=== PATIENT | male | born 1985 | race Caucasian/White ===

== ENCOUNTER → 2016-11-01 | Outpatient (REF) | payer MEDICARE, MEDICAID ==
[~2016-11-01] MED LIST: AMOX500C PO; AMPI50CA PO; CIPR500T89 PO; CRANPOW2 PO; FLOM5CAP PO; FOSFOMYCIN PO; LYRI100C10 PO; MACR100C3 PO; OXYB10TA PO; OXYB5TA PO; OXYC10TA12 PO; OXYC15TA76 PO; OXYC1TAB23 PO; PERC5TAB6 PO; PERC7.5T3 PO; TYLE500T78 PO; [UNRECOGNIZED DRUG - CODE] IV
[2016-11-01 19:37] LABS: INR 0.93
[2016-11-01 19:50] LABS: BASO % 0.3 % (0.0-1.0); EOS # 0.2 K/mm3 (0.0-0.50); EOS % 2.1 % (0.0-3.0); LARGE UNSTAINED CELL # 0.1 K/mm3 (0.0-0.4); LYMPH % 11.5 % (24.0-44.0); MEAN CORPUSCULAR HEMOGLOBIN 27.8 pg (27.0-33.0); MEAN CORPUSCULAR VOLUME 86.7 fl (80.0-96.0); MONO # 0.3 K/mm3 (0.0-0.8); MONO % 3.6 % (0.0-5.0); NEUTROPHILS # 7.2 K/mm3 (1.8-7.7); NEUTROPHILS % 81.5 % (36.0-66.0); PLATELET COUNT, AUTOMATED 273 k/mm3 (150-450); RED CELL DISTRIBUTION WIDTH 15.3 % (11.5-14.5); WHITE BLOOD COUNT 8.9 K/mm3 (4.0-10.0)
[2016-11-01 20:01] LABS: ALBUMIN 4.1 GM/DL (3.2-5.2); ALBUMIN/GLOBULIN RATIO 1.28 (1.00-1.93); ALKALINE PHOSPHATASE 78 U/L (45-117); ALT/SGPT 26 U/L (12-78); ANION GAP 9 MEQ/L (8-16); AST/SGOT 10 U/L (15-37); BILIRUBIN,TOTAL 0.3 MG/DL (0.2-1.0); BLOOD UREA NITROGEN 13 MG/DL (7-18); CALCIUM LEVEL 9.3 MG/DL (8.5-10.1); CARBON DIOXIDE LEVEL 30 MEQ/L (21-32); CHLORIDE LEVEL 102 MEQ/L (98-107); GLOMERULAR FILTRATION RATE > 60.0 (>60); GLUCOSE, FASTING 87 MG/DL (70-105); SODIUM LEVEL 141 MEQ/L (136-145); TOTAL PROTEIN 7.3 GM/DL (6.4-8.2)
== END ==
LOC: M LAB REF 18:52
PROVIDERS: ATTEND Urology
DX: Z01.812 Encounter for preprocedural laboratory examination (principal); R82.99 Other abnormal findings in urine; N28.9 Disorder of kidney and ureter, unspecified

== ENCOUNTER 2016-11-04 11:51 | Emergency (ER) | payer MEDICARE, MEDICAID ==
[~2016-11-04] VITALS: Ht 154.9 cm; Wt 59.0 kg
[~2016-11-04 11:51] MED LIST changes: -AMOX500C PO; -AMPI50CA PO; -FLOM5CAP PO; -FOSFOMYCIN PO; -OXYB5TA PO; -OXYC10TA12 PO; -OXYC15TA76 PO; -[UNRECOGNIZED DRUG - CODE] IV
[2016-11-04] MEDS ORDERED: OXYB5TA PO (12:12)
[2016-11-04] MEDS ORDERED: OXYC15TA76 PO (12:12)
[2016-11-04] MEDS ORDERED: NS 1,000 ML IV ONE (12:30)
[2016-11-04] MEDS ORDERED: KETOROLAC 30 MG/ML VIAL (J1885) IV ONE (12:30)
[2016-11-04] MEDS ORDERED: TAMSULOSIN 0.4 MG CAP PO ONE (12:30)
[2016-11-04] MEDS ORDERED: ONDANSETRON 4MG/2ML VIAL (J2405) IV ONE (12:30)
[2016-11-04] MEDS ORDERED: MORPHINE 2 MG/ML 1ML SYRINGE IV ONE (12:30)
[2016-11-04 13:03] LABS: BASO % 0.5 % (0.0-1.0); EOS # 0.1 K/mm3 (0.0-0.50); EOS % 1.9 % (0.0-3.0); LARGE UNSTAINED CELL # 0.1 K/mm3 (0.0-0.4); LARGE UNSTAINED CELL % 1.6 % (0.0-4.0); LYMPH # 0.9 K/mm3 (1.5-6.5); LYMPH % 13.4 % (24.0-44.0); MEAN CORPUSCULAR HEMOGLOBIN 27.5 pg (27.0-33.0); MEAN CORPUSCULAR HGB CONC 32.2 g/dl (32.0-36.5); MEAN CORPUSCULAR VOLUME 85.4 fl (80.0-96.0); MONO # 0.3 K/mm3 (0.0-0.8); MONO % 4.7 % (0.0-5.0); NEUTROPHILS # 5.1 K/mm3 (1.8-7.7); PLATELET COUNT, AUTOMATED 257 k/mm3 (150-450); RED CELL DISTRIBUTION WIDTH 15.3 % (11.5-14.5); WHITE BLOOD COUNT 6.6 K/mm3 (4.0-10.0)
[2016-11-04] MEDS ORDERED: CIPROFLOXACIN 400 MG in APPROPRIATE DILUENT 1 EA IV ONE (13:15)
[2016-11-04] MEDS ORDERED: cefTRIAXone SOD 1 GM in D5W MINI-BAG PLUS 50 ML IV ONE (13:15)
[2016-11-04 13:21] LABS: ALBUMIN 4.4 GM/DL (3.2-5.2); ALBUMIN/GLOBULIN RATIO 1.22 (1.00-1.93); ALKALINE PHOSPHATASE 72 U/L (45-117); ALT/SGPT 23 U/L (12-78); ANION GAP 7 MEQ/L (8-16); AST/SGOT 10 U/L (15-37); BILIRUBIN,DIRECT < 0.1 MG/DL (0.0-0.2); BILIRUBIN,TOTAL 0.3 MG/DL (0.2-1.0); BLOOD UREA NITROGEN 12 MG/DL (7-18); CALCIUM LEVEL 9.7 MG/DL (8.5-10.1); CARBON DIOXIDE LEVEL 29 MEQ/L (21-32); CHLORIDE LEVEL 104 MEQ/L (98-107); CREATININE FOR GFR 0.57 MG/DL (0.70-1.30); GLOMERULAR FILTRATION RATE > 60.0 (>60); GLUCOSE, FASTING 84 MG/DL (70-105); POTASSIUM SERUM 3.6 MEQ/L (3.5-5.1); SODIUM LEVEL 140 MEQ/L (136-145)
[2016-11-04] MEDS ORDERED: MORPHINE 4 MG/ML 1ML SYRINGE IV PRN (13:45)
--- NOTE | 2016-11-04 14:06 | REP ---
URINARY TRACT SONOGRAPHY: HISTORY: Left flank pain, history of stones. Comparison CT study March 31, 2016. SONOGRAPHIC FINDINGS: Scanning at the level of the urinary bladder shows no significant finding. There is severe hydronephrosis and hydroureter on the left side. The left kidney measures 10.1 x 3.9 x 5.4 cm. It is somewhat atrophic. No hydronephrosis is seen on the right. Right kidney measures 10.7 x 5.4 x 7.3 cm. There is a calcification at the lower pole cortex of the right kidney. The right kidney is lobulated in contour. A 1.7 cm calcification consistent with an intrarenal stone is seen in the lower pole right kidney as well. These findings correspond with the recent CT on the right side. The severe hydronephrosis on the left is new from the comparison CT study. No intrarenal stone is seen on the left. IMPRESSION: Interval development of severe hydronephrosis and hydroureter in the atrophic left kidney. Intrarenal nephrolithiasis right kidney with a large 1.7 cm stone in the lower pole. Right renal scarring and parenchymal calcification noted. Signed by Armando Moore MD 11/04/2016 04:47 P
--- NOTE | 2016-11-04 15:18 | REP ---
CT of the abdomen pelvis without IV or bowel contrast for left flank pain: Comparisons are 03/25/2015 and 03/31/2016. There is marked left renal cortical atrophy, chronic and unchanged. There is mild right renal cortical atrophy, chronic and unchanged. There are no left renal ureteral calculi. There are multiple nonobstructive right renal calculi, unchanged. There is no right ureteral calculus. There is no hydronephrosis on the right or left. There are no bladder calculi. The bladder is incompletely distended. The bladder wall is thickened, vertically posteriorly. This is nonspecific and could be artifact from under distension or could represent inflammation or bladder wall mass. The visualized lung fang are unremarkable. The unenhanced hepatic parenchyma, gallbladder, pancreas, spleen, adrenals, abdominal aorta, bowel and mesentery are unremarkable. Pelvis: Chronic right hip. This is placed is again with chronic sessile and dislocation of the right femoral head, unchanged. The left hip is unremarkable. There is no ascites or adenopathy. The pelvic bowel loops are unremarkable. The distal end of a VOLLEYBALL COMMENTATOR shunt is again noted. Impression: No hydronephrosis on the right or the left. No left renal ureteral calculi. Marked chronic renal cortical atrophy of the left kidney. There are multiple nonobstructive right renal calculi, unchanged. No right hydronephrosis or hydroureter. Wall thickening of the bladder, likely secondary to incomplete obstruction although inflammation or neoplasm is not entirely discounted. Chronic right hip dysplasia versus cephalic migration of the right femoral head. VOLLEYBALL COMMENTATOR shunt is again noted. The appendix is unremarkable. Signed by Lanre Larson MD 11/04/2016 03:09 P
[2016-11-04] MEDS ORDERED: PERCOCET 5MG/325MG TAB PO ONE (15:30)
[2016-11-04] MEDS ORDERED: PERC5TAB6 PO (15:44)
[2016-11-04] MEDS ORDERED: FOSFOMYCIN PO (15:44)
[2016-11-04] MEDS ORDERED: FOSFOMYCIN TROMETHAMINE 3 GM POWDER PACKET (MONUROL) PO ONE (15:45)
[2016-11-04] MEDS ORDERED: AMPI50CA PO (15:56)
[2016-11-04 16:10] VITALS: BP 142/72
== END 2016-11-04 16:12 | disposition home or self-care (01) ==
LOC: M ED 12:35
DX: N39.0 Urinary tract infection, site not specified (principal); B96.5 Pseudomonas (aeruginosa) (mallei) (pseudomallei) as the cause of diseases classified elsewhere; B95.2 Enterococcus as the cause of diseases classified elsewhere; Q05.9 Spina bifida, unspecified; M54.5 Low back pain; F41.9 Anxiety disorder, unspecified; Z87.442 Personal history of urinary calculi; F17.210 Nicotine dependence, cigarettes, uncomplicated
CPT/HCPCS: 74176; 76775; 80048; 80076; 81001; 85025; 96365; 96367; 96375; 96376; 99283; J0696; J0744; J1885; J2405

== ENCOUNTER 2016-12-02 13:07 | Inpatient (IN) | payer MEDICARE, MEDICAID ==
[~2016-12-02] VITALS: Ht 154.9 cm; Wt 61.0 kg
[~2016-12-02 13:07] MED LIST changes: +AMPI50CA PO; +FOSFOMYCIN PO; +OXYB5TA PO; +OXYC15TA76 PO
[2016-12-02] MEDS ORDERED: ACETAMINOPHEN 325 MG TAB PO ONE (14:30)
[2016-12-02] MEDS ORDERED: NS 1,000 ML IV ONE ×2 (14:30)
[2016-12-02] MEDS ORDERED: MORPHINE 4 MG/ML 1ML SYRINGE IV ONE (14:30)
[2016-12-02] MEDS ORDERED: KETOROLAC 30 MG/ML VIAL (J1885) IV ONE (14:30)
[2016-12-02 15:10] LABS: BASO % 0.1 % (0.0-1.0); EOS # 0.3 K/mm3 (0.0-0.50); LARGE UNSTAINED CELL # 0.3 K/mm3 (0.0-0.4); LYMPH # 0.3 K/mm3 (1.5-6.5); LYMPH % 1.1 % (24.0-44.0); MEAN CORPUSCULAR HGB CONC 34.8 g/dl (32.0-36.5); MEAN CORPUSCULAR VOLUME 83.6 fl (80.0-96.0); MONO # 1.5 K/mm3 (0.0-0.8); MONO % 5.5 % (0.0-5.0); NEUTROPHILS # 24.4 K/mm3 (1.8-7.7); NEUTROPHILS % 91.2 % (36.0-66.0); PLATELET COUNT, AUTOMATED 245 k/mm3 (150-450); RED CELL DISTRIBUTION WIDTH 14.9 % (11.5-14.5); WHITE BLOOD COUNT 26.8 K/mm3 (4.0-10.0)
[2016-12-02] MEDS ORDERED: ONDANSETRON 4MG/2ML VIAL (J2405) IV ONE (15:30)
[2016-12-02 15:35] LABS: ALBUMIN 3.1 GM/DL (3.2-5.2); ALBUMIN/GLOBULIN RATIO 0.86 (1.00-1.93); ALKALINE PHOSPHATASE 68 U/L (45-117); ALT/SGPT 26 U/L (12-78); ANION GAP 10 MEQ/L (8-16); AST/SGOT 22 U/L (15-37); BILIRUBIN,DIRECT 0.2 MG/DL (0.0-0.2); BILIRUBIN,TOTAL 0.6 MG/DL (0.2-1.0); BLOOD UREA NITROGEN 11 MG/DL (7-18); CALCIUM LEVEL 9.1 MG/DL (8.5-10.1); CARBON DIOXIDE LEVEL 27 MEQ/L (21-32); CHLORIDE LEVEL 92 MEQ/L (98-107); CREATININE FOR GFR 0.77 MG/DL (0.70-1.30); GLOMERULAR FILTRATION RATE > 60.0 (>60); GLUCOSE, FASTING 132 MG/DL (70-105); POTASSIUM SERUM 3.2 MEQ/L (3.5-5.1); SODIUM LEVEL 129 MEQ/L (136-145); TOTAL PROTEIN 6.7 GM/DL (6.4-8.2)
[2016-12-02] MEDS ORDERED: HYDROmorphone HCL 1 MG/ML SYRINGE (J1170) IV ONE (15:45)
--- NOTE | 2016-12-02 15:47 | REP ---
RENAL ULTRASOUND COMPLETE: 12/02/2016. Clinical history: Right flank pain. History of stone retrieval and stent placement on the right, November 15. Comparison: Ultrasound 11/04/2016. Findings: The right kidney is a enlarged at 14 x 8.9 x 8.4 cm. The previous study was 10.7 x 5.4 x 7.4 cm and did not have hydronephrosis or stent. There is a stent seen on that right side from the proximal ureter to the distal ureter. Ureter is seen dilated throughout its course. Left kidney is also enlarged 13.1 x 4.7 x 5.5 cm, it has normal cortical echogenicity and thickness. There is severe hydronephrosis and hydroureter on the left is noted as well. Hydronephrosis now bilateral involves proximal mid and distal portions of both ureters. The exam was somewhat limited due to pain tolerance. The bladder appeared distended. I do not see ureteral jet phenomenon. Impression: 1. Bilateral hydronephrosis, the right kidney now severe hydronephrosis, enlarged to 14 cm from its previous length of 10.7 cm on the 11/04/2016 exam, stent seen from the proximal to the distal ureter on the right. 2. Severe hydronephrosis on the left again noted with stent seen on that left side as well with the left kidney now 13.1 cm, previously 10.1 cm on 11/04/2016. 3. Bladder somewhat distended without ureteral jets. Stents are seen bilaterally. No other findings. Signed by Jason Eason MD 12/02/2016 05:04 P
[2016-12-02] MEDS ORDERED: CIPROFLOXACIN 400 MG in APPROPRIATE DILUENT 1 EA IV ONE (16:15)
[2016-12-02] MEDS ORDERED: cefTRIAXone SOD 1 GM in D5W MINI-BAG PLUS 50 ML IV ONE (16:15)
[2016-12-02] MEDS ORDERED: OXYC10TA12 PO (16:58)
--- NOTE | 2016-12-02 17:15 | ED PDOC ---
Post-Departure Follow-Up SPOKE WITH DR. DONAHUE (HOSPITALIST) AND WITH DR. PEREZ (UROLOGY). DR. DONAHUE AGREED TO ADMIT AND DR. PEREZ AGREED TO CONSULT ON THIS PT. DR. PEREZ ADVISED STENTS WORKING WELL IF THE BLADDER WAS DISTENDED ON THE CT SCAN. STATES PT LIKELY HAS UTI AND DOES NOT CATH ENOUGH AND THE HYDRONEPHROSIS IS CAUSED BY REFLUX TO THE KIDNEY FROM A FULL BLADDER. RALPH STAFFORD PA-C December 02, 2016 17:15
[2016-12-02] MEDS ORDERED: PERCOCET 5MG/325MG TAB PO PRN (17:30)
[2016-12-02] MEDS: MORPHINE 10 MG/ML 1ML VIAL IV PRN ×2 (18:07→22:08)
[2016-12-02] MEDS ORDERED: POTASSIUM CHLORIDE 10 MEQ SR TABLET PO ONE (18:30)
[2016-12-02] MEDS ORDERED: NS 1,000 ML IV SCH (18:30)
[2016-12-02 20:25] VITALS: BP 102/60
[2016-12-02] MEDS ORDERED: PANTOPRAZOLE 40MG INJ (PROTONIX) (C9113) IV SCH (21:00)
[2016-12-02] MEDS: PENICILLIN G POTASSIUM IV 5 MU in D5W MINI-BAG PLUS 100 ML IV SCH (21:17)
[2016-12-02] MEDS: KCL 40MEQ in NS 1000ML 1,000 ML IV SCH (21:17)
[2016-12-02] MEDS: PERCOCET 5MG/325MG TAB PO PRN (21:17)
[2016-12-02 22:00] VITALS: BP 108/60
--- NOTE | 2016-12-02 22:04 | REP ---
Clinical: Hydronephrosis with stents. Comparison: 11/04/2016. Findings: The right kidney appears edematously enlarged with mild perinephric and periureteral stranding and stent in satisfactory position from the renal pelvis to the bladder. Chronic areas of cortical scarring and acute/chronic elements of hydronephrosis are suggested along with few intrarenal calculi measuring up to approximately 5 mm. In comparison to prior examination, the previously noted large right intrarenal calculi measuring greater than 18 mm appear to have been removed. Following the right ureteral stent into the bladder there is no evidence for ureteral calcification. The left kidney demonstrates stable chronic cortical scarring and chronic elements of hydroureteronephrosis without obstructing calculus. Hepatomegaly appreciated. Spleen, pancreas, gallbladder, and bilateral adrenal glands are normal for noncontrast evaluation. The enteric system demonstrates scattered diverticula without evidence for obstruction or acute inflammatory process. Normal terminal ileum and appendix identified in the right lower quadrant. Small amount of pelvic fluid is appreciated along with a ventriculoperitoneal shunt in satisfactory position. No free air. Scattered predominately retroperitoneal lymph nodes in the periaortic and paracaval distribution measure roughly up to 13 mm and may be slightly more pronounced than prior examination. Musculoskeletal structures demonstrate spina bifida and congenital deformities to the pelvis and hips suggesting cerebral palsy. Fluid and soft tissue related to the abnormal right hip remains stable and likely chronic. Lung bases demonstrate minimal right basilar atelectasis. Impression: 1. Right ureteral stent in satisfactory position with edematous enlargement to the right kidney and mild perinephric/periureteral stranding as well as elements of chronic cortical scarring, hydroureteronephrosis and intrarenal calculi. Previously noted large right intrarenal calculus during approximately 18 mm has been removed. Correlation with urinalysis is recommended to exclude associated pyelonephritis. The left kidney appears stable and demonstrates more mild cortical scarring and chronic appearing hydroureternephrosis without nephrolithiasis or obstructing calculus. 2. Mildly prominent periaortic and paracaval lymph nodes up to 13 mm primarily at the level of the kidneys may be reactive in nature. 3. Chronic findings related to spina bifida and cerebral palsy including congenital deformities to the pelvis and hips as well as ventriculoperitoneal shunt in satisfactory position. 4. Minimal right basilar atelectasis. Signed by Josias Luciano MD 12/02/2016 09:56 P
[2016-12-02] MEDS: diphenhydrAMINE 25 MG CAP PO PRN (22:08)
--- NOTE | 2016-12-02 22:56 | HPE ---
DATE OF ADMISSION: 12/02/2016 PRIMARY CARE PHYSICIAN: Dr. Yanelis Sanchez UROLOGIST: Dr. Jose Eli CHIEF COMPLAINT: Right flank pain, fever, nausea, vomiting. HISTORY OF PRESENT ILLNESS: Mr. Kelly is a 30-year-old male with multiple past medical history who presented to emergency room due to experiencing severe right flank pain. Patient expressed that the pain started yesterday, and when he woke up in the morning, patient expressed that first pain was 10/10, and it continues. Patient expressed that at that time he took ibuprofen as well as oxycodone. With oxycodone he could sleep; however, he woke up in the middle of the night, and he continued to have severe pain. Patient took another oxycodone; however, he could not tolerate the pain anymore, and he came to emergency room (ER). Patient expressed that two days ago patient had an appointment with Dr. Eli (urology) for followup regarding the urological stent on the right side. Patient expressed that the beginning of November, patient had nephrolithiasis, which was removed by Dr. Eli and put the stent in for him. Patient expressed that he missed the appointment due to problem with the car. Patient expressed that yesterday he also noticed that he has fever, and he said his temperature was 102.5. Also patient had chills and night sweats. Patient self-catheterizes himself secondary to spina bifida since childhood, and patient expressed that he uses a new catheter every time. Patient also is sexually active, and his last intercourse was about 2 weeks ago. Patient expressed that he frequently catheterizes himself. Patient expressed that today pain was so severe that he asked his girlfriend to take him to the ER. ALLERGIES: 1. Latex. 2. MEPERIDINE. 3. VANCOMYCIN, causing Red Man syndrome. HOME MEDICATIONS: - oxybutynin 10 mg by mouth daily - oxycodone 10 mg every 6 hours as needed pain PAST MEDICAL HISTORY: 1. Spina bifida. 2. Hydrocephalus. 3. Pyelonephritis in 2012. 4. Nephrolithiasis on the right side. 5. Chronic joint pain. 6. Chronic dislocated right hip with dysplasia. 7. Anxiety. 8. Closed-head injury in 2012. 9. Chronic hip pain. 10. Neurogenic bladder. 11. History of ureter obstruction. PAST SURGICAL HISTORY: 1. Right nephrostomy tube in 2013. 2. Ureter reimplantation. 3. Ventriculoperitoneal (INSPECTOR FILTER TIP) shunt on the right. 4. Ureteral stent. 5. Bilateral hip surgery. 6. Lithotripsy on the right. 7. Souris teeth removed. 8. Spina bifida surgery at . 9. Right ureteral stent. 10. Right nephrolithiasis removed. SOCIAL HISTORY: Patient lives with his girlfriend and his girlfriend's son. Patient says he drinks occasionally. Patient smokes cigarettes, about half a pack a day. Patient started smoking at age 14. Patient also smokes marijuana once or twice a month. Patient has not traveled outside of the [place]. Patient does not have pets at home. Patient does not have any children. FAMILY HISTORY: Patient has one sister who has not been talking since 2007. Patient's mother in 2007 due to boating accident. Patient's father is an alcoholic, and patient has not communicated with his father. REVIEW OF SYSTEMS: Patient expressed that he has been experiencing fever, chills, night sweats; however, patient denies weight loss or weight gain. HEENT: Patient expressed that he has been having some lightheadedness and dizziness; however, patient denies acute vision or hearing changes. Patient also denies problem with chewing food or drinking water. NECK: Patient denies lumps, bumps, or decreased range of motion of his neck. HEART: Patient expressed that he has been experiencing palpitations and racing heartbeat, and he believes that this is secondary to the pain. LUNGS: Patient expressed that he has been having shortness of breath, possibly secondary to pain; however, no coughing. ABDOMEN: Patient has severe abdominal pain on all abdominal quadrants, specifically right upper and lower abdominal quadrants; however, patient denies melena, hematochezia, hemoptysis. Patient has been having vomiting, multiple episodes, without any blood, and patient was nauseated. NEUROLOGIC: Patient denies history of transient ischemic attack (TIA) or seizure-type activities; however, patient is paralyzed due to spina bifida in the lower extremities. PHYSICAL EXAMINATION: VITAL SIGNS: Temperature 98.1, pulse 82, respiratory rate 18, blood pressure 141/91, pulse oximetry 98 on room air. GENERAL APPEARANCE: Patient was lying in bed in no acute distress. Patient was awake, alert, and oriented to time, place, and person. HEENT: Normocephalic, atraumatic. Pupils are equal and reactive to light. Oral mucosa is moist. NECK: Soft, supple. No lymphadenopathy. No thyromegaly. No jugular venous distention (JVD). HEART: Regular rate and rhythm. Normal S1, S2. ABDOMEN: Soft, tender to palpation in all quadrants, specifically on the right upper and lower quadrants. Positive bowel sounds in all quadrants. BACK: Patient has tenderness to palpation bilaterally on the lower back, more on the right costovertebral angle (CVA) compared to the left. EXTREMITIES: No lower extremity edema. +2 pulses in both lower extremities. Patient has warm feet. Patient is paralyzed in both lower extremities due to spina bifida and no sensation in both lower extremities. NEUROLOGIC: Cranial nerves II-XII were intact. No focal deficiencies. LABORATORY DATA: White blood cells 26.8, red blood cells 4.75, hemoglobin 13.8, hematocrit 39.7, MCV 83.6, MCH 29, MCHC 34.8, RDW 14.9, platelet count 245, neutrophil percentage 91.2, lymphocyte percentage 1.1, monocyte percentage 5.5, eosinophil percentage 1, basophil percentage 0.1, leukocyte percentage 1. Sodium 129, potassium 3.2, chloride 92, carbon dioxide 27, anion gap 10, BUN 11, creatinine 0.77, glomerular filtration rate more than 60, fasting glucose 132, lactic acid 1.9, calcium 9.1. Total bilirubin 0.6, direct bilirubin 0.2, AST 22, ALT 26, alkaline phosphatase 68, C-reactive protein 27, total protein 6.7, albumin 3.1, lipase 55. Urinalysis (UA): Urine color yellow. Urine appearance hazy. Urine pH 7, urine specific gravity 1.003, urine protein 1+, urine glucose negative, urine ketones negative, urine bilirubin 3+, urine nitrite positive, urine bilirubin negative, urine urobilinogen 0.2, urine leukocyte esterase 3+, urine white blood cells 42, urine red blood cells 6, urine hyaline casts 0, urine bacterial 2+, urine squamous epithelial cells 0, urine mucus is small. IMAGING TECHNIQUE: Renal ultrasound indicated bilateral hydronephrosis. Right kidney now with severe hydronephrosis, enlarged to 14 cm from its previous length of 10.7 cm of 11/04/2016. Stent seen in the proximal of the distal urethra on the right. Also severe hydronephrosis in the left. Again noted to be a stent seen on the left side as well as the left kidney now 13.1 cm, previously 10.1 cm on 11/04/2016. Bladder somewhat distended without ureteral jets. Stents are seen bilaterally. No other finding. ASSESSMENT AND PLAN: 1. Obstructive uropathy. Dr. Mobley has been consulted by ER, who believes that this is not due to the failure of ureteroenteric stent; however, this is because of not doing frequent catheterization and retention of the urine. Dr. Mobley will see the patient today, and at this point we are waiting for the recommendations. Also we continue patient on oxybutynin. 2. Pyelonephrosis. Urinalysis (UA) indicated the possibility of infection. Based on the previous urine culture, we have started patient on meropenem due to Pseudomonas aeruginosa and penicillin G due to Enterococcus faecalis; however, these antibiotics can be changed. We will alter these medications based on the results of the urine culture. Blood culture is pending. Patient has good renal function. We will continue to monitor patient for any abnormal symptoms. 3. Abnormal UA. Urine culture is pending at this time. At this time we will continue patient on meropenem and penicillin G; however, based on the urine culture we will alter these medications. 4. Hyponatremia. This is possibly hypervolemic hyponatremia, possibly secondary to gastrointestinal (GI) loss secondary to vomiting. At this point, I have started patient on intravenous (IV) fluid. 5. Hypokalemia. This is possibly secondary to GI loss. We will administer potassium. 6. Neurogenic bladder. At this time we will continue patient on straight catheterization; however, based on recommendation by Dr. Mobley, patient might be required to have a Meeks. 7. Chronic anxiety. Patient is stable at that time. 8. Spina bifida. This is a chronic issue. My preceptor for this patient encounter was Dr. Yanelis Sanchez. The preceptor was physically present in the building during the encounter and was fully available as needed. All aspects of the patient interview, examination, medical decision making process, and medical care plan development were reviewed and approved by the preceptor. The preceptor is aware and concurs with the plan as stated in the body of this note and will attest to such by his/her co-signature. ALEJO
[2016-12-02] MEDS: MEROPENEM INJ 1 GM in D5W MINI-BAG PLUS 100 ML IV SCH (23:30)
[2016-12-02] MEDS: ACETAMINOPHEN 500 MG TAB PO PRN (23:30)
[2016-12-03] VITALS (7 sets, daily range): BP systolic 91–114; BP diastolic 52–64
[2016-12-03] MEDS: PENICILLIN G POTASSIUM IV 5 MU in D5W MINI-BAG PLUS 100 ML IV SCH ×6 (01:04→20:30)
[2016-12-03] MEDS: MORPHINE 10 MG/ML 1ML VIAL IV PRN ×2 (02:11→06:10)
[2016-12-03] MEDS: KCL 40MEQ in NS 1000ML 1,000 ML IV SCH ×3 (04:54→22:29)
[2016-12-03] MEDS: PERCOCET 5MG/325MG TAB PO PRN ×3 (04:55→17:58)
[2016-12-03] MEDS: MEROPENEM INJ 1 GM in D5W MINI-BAG PLUS 100 ML IV SCH ×3 (06:09→22:29)
[2016-12-03 06:46] LABS: BASO % 0.1 % (0.0-1.0); EOS # 0.2 K/mm3 (0.0-0.50); EOS % 0.7 % (0.0-3.0); LARGE UNSTAINED CELL # 0.2 K/mm3 (0.0-0.4); LARGE UNSTAINED CELL % 0.9 % (0.0-4.0); LYMPH # 0.3 K/mm3 (1.5-6.5); LYMPH % 1.1 % (24.0-44.0); MEAN CORPUSCULAR HEMOGLOBIN 28.7 pg (27.0-33.0); MEAN CORPUSCULAR HGB CONC 33.4 g/dl (32.0-36.5); MEAN CORPUSCULAR VOLUME 85.9 fl (80.0-96.0); MONO # 1.1 K/mm3 (0.0-0.8); MONO % 4.1 % (0.0-5.0); PLATELET COUNT, AUTOMATED 231 k/mm3 (150-450); RED CELL DISTRIBUTION WIDTH 15.1 % (11.5-14.5); WHITE BLOOD COUNT 26.9 K/mm3 (4.0-10.0)
[2016-12-03 07:01] LABS: ALBUMIN 2.3 GM/DL (3.2-5.2); ALKALINE PHOSPHATASE 55 U/L (45-117); ALT/SGPT 22 U/L (12-78); ANION GAP 5 MEQ/L (8-16); AST/SGOT 25 U/L (15-37); BILIRUBIN,TOTAL 0.4 MG/DL (0.2-1.0); BLOOD UREA NITROGEN 9 MG/DL (7-18); CARBON DIOXIDE LEVEL 27 MEQ/L (21-32); CHLORIDE LEVEL 102 MEQ/L (98-107); CREATININE FOR GFR 0.86 MG/DL (0.70-1.30); GLOMERULAR FILTRATION RATE > 60.0 (>60); GLUCOSE, FASTING 110 MG/DL (70-105); POTASSIUM SERUM 3.4 MEQ/L (3.5-5.1); SODIUM LEVEL 134 MEQ/L (136-145); TOTAL PROTEIN 5.6 GM/DL (6.4-8.2)
--- NOTE | 2016-12-03 08:18 | IPNPDOC ---
Subjective Date Seen The patient was seen on 12/03/16. Subjective Chief Complaint/HPI The patient is a 30-year-old male admitted with a reason for visit of Obstructive Uropathy. General: Reports: Fatigue, Malaise, Normal Appetite (no appetitie), Denies: ROS Unobtainable, Chills, Night Sweats, Other Symptoms Constitutional: Reports: Malaise, Fatigue, Denies: Chills, Fever, Night Sweats, Weakness, Weight Loss, Lethargy, Other Eyes: Denies: Pain, Vision change, Conjunctivae inflammation, Eyelid inflammation, Redness, Other ENT: Denies: Head Aches, Ear Pain, Dysphagia, Sinus Congestion, Post Nasal Drip , Sore Throat, Epistaxis, Other Symptoms Skin: Denies: Rash, Lesions, Jaundice, Bruising, Itching, Dry, Breakdown, Nail Changes, Other Pulmonary: Denies: Dyspnea, Cough, Pleuritic Chest Pain, Other Symptoms Cardiovascular: Denies: Chest Pain, Palpitations, Orthopnea, Paroxysmal Noc. Dyspnea, Edema, Lt Headedness, Other Symptoms Gastrointestinal: Denies: Nausea, Vomiting, Abdominal Pain, Diarrhea, Constipation, Melena, Hematochezia, Other Symptoms Genitourinary: Denies: Dysuria, Frequency, Incontinence, Hematuria, Retention, Other Symptoms Objective Physical Examination General Exam: Positive: Alert, Cooperative, No Acute Distress Eye Exam: Positive: PERRLA Chest Exam: Positive: Clear to auscultation, Normal air movement Heart Exam: Positive: Rate Normal, Regular Rhythm Abdomen Exam: Positive: Normal bowel sounds, Soft, Tenderness (right flank cva tenderness) Extremity Exam: Negative: Edema Psych Exam: Positive: Oriented x 3 Assessment /Plan Problems (1) Pyelonephritis Status: Acute Discussed With: Patient Problem Specific Plan: Consult Specialist, Monitor Clinically, Repeat Labs Problem Text: Meropenem and Pen G started as per recent urine cultures/ sensitivities = pseudomonas, e. faecalis Recent right ureteral stent placement. Urology c/s pending. (2) Neurogenic bladder Status: Chronic Discussed With: Patient Problem Specific Plan: Consult Specialist, Monitor Clinically Problem Text: Patient self catheterizes. Nursing to monitor to ensure adequate technique. (3) Obstructive uropathy Problem Specific Plan: Consult Specialist, Monitor Clinically Problem Text: Pending urology consultation for possible etiology related to recent right ureteral stent placement. (4) Hydrocephalus Status: Chronic Problem Text: s/p vp security shunt as per medical records (5) Spina bifida Status: Chronic Discussed With: Patient (6) Nicotine abuse Plan/VTE VTE Prophylaxis Ordered?: Yes (lovenox) Plan IVF: Continue Diet: Continue Current Activity: Continue Current Medications: Decrease pain Meds Diagnostics: Repeat Labs in AM, Obtain Cultures VS, I&O, 24H, Fishbone Vital Signs/I&O Vital Signs Date Time Temp Pulse Resp B/P (MAP) Pulse Ox O2 Delivery O2 Flow Rate FiO2 12/03/16 06:20 18 12/03/16 06:00 99.7 118 101/54 (70) 98 Room Air I&O- Last 24 Hours up to 6 AM 12/03/16 05:59 Intake Total 3500 ml Output Total 300 ml Balance 3200 ml Laboratory Data 24H LABS Laboratory Tests 2 12/02/16 14:48: White Blood Count 26.8H, Red Blood Count 4.75, Hemoglobin 13.8L, Hematocrit 39.7L, Mean Corpuscular Volume 83.6, Mean Corpuscular Hemoglobin 29.0, Mean Corpuscular Hemoglobin Concent 34.8, Red Cell Distribution Width 14.9H, Platelet Count 245, Neutrophils (%) (Auto) 91.2H, Lymphocytes (%) (Auto) 1.1L, Monocytes (%) (Auto) 5.5H, Eosinophils (%) (Auto) 1.0, Basophils (%) (Auto) 0.1 , Neutrophils # (Auto) 24.4H, Lymphocytes # (Auto) 0.3L, Monocytes # (Auto) 1.5H , Eosinophils # (Auto) 0.3, Basophils # (Auto) 0.0, Large Unclassified Cells % 1.0, Large Unclassified Cells # 0.3, Anion Gap 10, Glomerular Filtration Rate > 60.0, Lactic Acid Level 1.9, Calcium Level 9.1, Aspartate Amino Transf (AST/SGOT ) 22, Alanine Aminotransferase (ALT/SGPT) 26, Alkaline Phosphatase 68, Total Bilirubin 0.6, Direct Bilirubin 0.2, C-Reactive Protein, Quantitative 27.00H, Total Protein 6.7, Albumin 3.1L, Albumin/Globulin Ratio 0.86L, Lipase 55L 12/02/16 15:42: Urine Appearance HAZY, Urine Color YELLOW, Urine pH 7.0, Urine Specific [place] 1.003, Urine Protein 1+H, Urine Glucose (UA) NEGATIVE, Urine Ketones NEGATIVE, Urine Urobilinogen 0.2, Urine Bilirubin NEGATIVE, Urine Leukocyte Esterase 3+H, Urine Blood 3+H, Urine Nitrite POSITIVE, Urine WBC (Auto) 42H, Urine RBC (Auto) 6H, Urine Hyaline Casts (Auto) 0, Urine Bacteria (Auto) 2+H, Urine Squamous Epithelial Cells 0, Urine Mucus (Auto) SMALL, Urine Sperm (Auto) 12/03/16 06:30: White Blood Count 26.9H, Red Blood Count 4.26L, Hemoglobin 12.2L, Hematocrit 36.6L, Mean Corpuscular Volume 85.9, Mean Corpuscular Hemoglobin 28.7, Mean Corpuscular Hemoglobin Concent 33.4, Red Cell Distribution Width 15.1H, Platelet Count 231, Neutrophils (%) (Auto) 93.0H, Lymphocytes (%) (Auto) 1.1L, Monocytes (%) (Auto) 4.1, Eosinophils (%) (Auto) 0.7, Basophils (%) (Auto) 0.1, Neutrophils # (Auto) 25.0H, Lymphocytes # (Auto) 0.3L, Monocytes # (Auto) 1.1H, Eosinophils # (Auto) 0.2, Basophils # (Auto) 0.0, Large Unclassified Cells % 0.9 , Large Unclassified Cells # 0.2, Anion Gap 5L, Glomerular Filtration Rate > 60.0, Calcium Level 8.0L, Aspartate Amino Transf (AST/SGOT) 25, Alanine Aminotransferase (ALT/SGPT) 22, Alkaline Phosphatase 55, Total Bilirubin 0.4, Total Protein 5.6L, Albumin 2.3#L, Albumin/Globulin Ratio 0.70L, Blood Urea Nitrogen 9, Creatinine 0.86, Sodium Level 134L, Potassium Level 3.4L, Chloride Level 102, Carbon Dioxide Level 27 CBC/BMP Laboratory Tests 12/02/16 14:48 Red Blood Count 4.75, Mean Corpuscular Volume 83.6, Mean Corpuscular Hemoglobin 29.0, Mean Corpuscular Hemoglobin Concent 34.8, Red Cell Distribution Width 14.9 H, Neutrophils (%) (Auto) 91.2 H, Lymphocytes (%) (Auto) 1.1 L, Monocytes ( %) (Auto) 5.5 H, Eosinophils (%) (Auto) 1.0, Basophils (%) (Auto) 0.1, Neutrophils # (Auto) 24.4 H, Lymphocytes # (Auto) 0.3 L, Monocytes # (Auto) 1.5 H, Eosinophils # (Auto) 0.3, Basophils # (Auto) 0.0 12/03/16 06:30 Red Blood Count 4.26 L, Mean Corpuscular Volume 85.9, Mean Corpuscular Hemoglobin 28.7, Mean Corpuscular Hemoglobin Concent 33.4, Red Cell Distribution Width 15.1 H, Neutrophils (%) (Auto) 93.0 H, Lymphocytes (%) (Auto ) 1.1 L, Monocytes (%) (Auto) 4.1, Eosinophils (%) (Auto) 0.7, Basophils (%) ( Auto) 0.1, Neutrophils # (Auto) 25.0 H, Lymphocytes # (Auto) 0.3 L, Monocytes # (Auto) 1.1 H, Eosinophils # (Auto) 0.2, Basophils # (Auto) 0.0, Calcium Level 8.0 L, Aspartate Amino Transf (AST/SGOT) 25, Alanine Aminotransferase (ALT/SGPT ) 22, Alkaline Phosphatase 55, Total Bilirubin 0.4, Total Protein 5.6 L, Albumin 2.3 #L Microbiology Microbiology 12/02/16 Blood Culture, Received Pending 12/02/16 Blood Culture, Received Pending 12/02/16 Urine Culture, Received Pending FOSTER ANDREWS MD December 03, 2016 08:18
[2016-12-03] MEDS: ENOXAPARIN 40 MG/0.4 ML SYRINGE (J1650) SC SCH (09:00)
[2016-12-03] MEDS: oxyBUTYnin 5 MG TAB PO SCH (09:07)
[2016-12-03] MEDS: ONDANSETRON 4MG/2ML VIAL (J2405) IV PRN ×2 (11:07→17:56)
--- NOTE | 2016-12-03 11:39 | ECGEPIP ---
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
[2016-12-03] MEDS ORDERED: IBUPROFEN 400 MG TAB PO ONE (12:30)
[2016-12-03] MEDS: MORPHINE 4 MG/ML 1ML SYRINGE IV PRN ×2 (14:32→20:33)
[2016-12-03] MEDS ORDERED: MORPHINE 4 MG/ML 1ML SYRINGE IV PRN (17:30)
[2016-12-03] MEDS: diphenhydrAMINE 25 MG CAP PO PRN (22:30)
[2016-12-04] MEDS: PENICILLIN G POTASSIUM IV 5 MU in D5W MINI-BAG PLUS 100 ML IV SCH ×6 (01:39→21:23)
[2016-12-04] MEDS: ACETAMINOPHEN 500 MG TAB PO PRN (01:51)
[2016-12-04 01:55] VITALS: BP 96/60
[2016-12-04] MEDS: MORPHINE 4 MG/ML 1ML SYRINGE IV PRN ×4 (03:01→23:36)
[2016-12-04 06:00] VITALS: BP 106/52
[2016-12-04 06:04] LABS: BASO % 0.1 % (0.0-1.0); EOS # 0.1 K/mm3 (0.0-0.50); EOS % 0.4 % (0.0-3.0); LARGE UNSTAINED CELL # 0.4 K/mm3 (0.0-0.4); LARGE UNSTAINED CELL % 2.4 % (0.0-4.0); LYMPH # 0.7 K/mm3 (1.5-6.5); LYMPH % 4.4 % (24.0-44.0); MEAN CORPUSCULAR HEMOGLOBIN 28.5 pg (27.0-33.0); MEAN CORPUSCULAR HGB CONC 32.6 g/dl (32.0-36.5); MEAN CORPUSCULAR VOLUME 87.3 fl (80.0-96.0); MONO % 5.9 % (0.0-5.0); NEUTROPHILS # 14.5 K/mm3 (1.8-7.7); NEUTROPHILS % 86.8 % (36.0-66.0); PLATELET COUNT, AUTOMATED 221 k/mm3 (150-450); RED CELL DISTRIBUTION WIDTH 15.5 % (11.5-14.5); WHITE BLOOD COUNT 16.7 K/mm3 (4.0-10.0)
[2016-12-04] MEDS: MEROPENEM INJ 1 GM in D5W MINI-BAG PLUS 100 ML IV SCH ×3 (06:31→21:24)
[2016-12-04 06:39] LABS: ALBUMIN 1.8 GM/DL (3.2-5.2); ALBUMIN/GLOBULIN RATIO 0.51 (1.00-1.93); ALKALINE PHOSPHATASE 65 U/L (45-117); ALT/SGPT 20 U/L (12-78); ANION GAP 5 MEQ/L (8-16); AST/SGOT 19 U/L (15-37); BILIRUBIN,TOTAL 0.2 MG/DL (0.2-1.0); BLOOD UREA NITROGEN 13 MG/DL (7-18); CALCIUM LEVEL 7.5 MG/DL (8.5-10.1); CARBON DIOXIDE LEVEL 25 MEQ/L (21-32); CHLORIDE LEVEL 107 MEQ/L (98-107); CREATININE FOR GFR 0.72 MG/DL (0.70-1.30); GLOMERULAR FILTRATION RATE > 60.0 (>60); GLUCOSE, FASTING 104 MG/DL (70-105); POTASSIUM SERUM 4.2 MEQ/L (3.5-5.1); SODIUM LEVEL 137 MEQ/L (136-145); TOTAL PROTEIN 5.3 GM/DL (6.4-8.2)
[2016-12-04] MEDS: oxyBUTYnin 5 MG TAB PO SCH (09:55)
[2016-12-04] MEDS: ONDANSETRON 4MG/2ML VIAL (J2405) IV PRN (09:57)
[2016-12-04] MEDS: ENOXAPARIN 40 MG/0.4 ML SYRINGE (J1650) SC SCH (09:58)
[2016-12-04] MEDS: KCL 40MEQ in NS 1000ML 1,000 ML IV SCH ×2 (10:00→13:57)
--- NOTE | 2016-12-04 11:08 | IPNPDOC ---
Subjective Date Seen The patient was seen on 12/04/16. Subjective Chief Complaint/HPI The patient is a 30-year-old male admitted with a reason for visit of Obstructive Uropathy. General: Reports: Chills, Malaise, Denies: ROS Unobtainable, Night Sweats, Fatigue, Normal Appetite, Other Symptoms Constitutional: Reports: Chills, Fever, Malaise, Denies: Night Sweats, Weakness, Fatigue, Weight Loss, Lethargy, Other Eyes: Denies: Pain, Vision change, Conjunctivae inflammation, Eyelid inflammation, Redness, Other ENT: Denies: Head Aches, Ear Pain, Dysphagia, Sinus Congestion, Post Nasal Drip , Sore Throat, Epistaxis, Other Symptoms Skin: Denies: Rash, Lesions, Jaundice, Bruising, Itching, Dry, Breakdown, Nail Changes, Other Pulmonary: Denies: Dyspnea, Cough, Pleuritic Chest Pain, Other Symptoms Cardiovascular: Denies: Chest Pain, Palpitations, Orthopnea, Paroxysmal Noc. Dyspnea, Edema, Lt Headedness, Other Symptoms Gastrointestinal: Reports: Abdominal Pain (flank pain), Denies: Nausea, Vomiting, Diarrhea, Constipation, Melena, Hematochezia, Other Symptoms Genitourinary: Denies: Dysuria, Frequency, Incontinence, Hematuria, Retention, Other Symptoms Objective Physical Examination General Exam: Positive: Alert, Cooperative, No Acute Distress Eye Exam: Positive: PERRLA, Conjunctiva & lids normal, EOMI, Negative: Sclera icteric ENT Exam: Positive: Atraumatic Neck Exam: Positive: Supple Chest Exam: Positive: Clear to auscultation, Normal air movement Heart Exam: Positive: Rate Normal, Regular Rhythm Abdomen Exam: Positive: Normal bowel sounds, Soft, Tenderness (right flank cva tenderness) Extremity Exam: Negative: Edema Psych Exam: Positive: Oriented x 3 Assessment /Plan Problems (1) Pyelonephritis Status: Acute Discussed With: Surgical Services Asst, Patient Problem Specific Plan: Consult Specialist, Monitor Clinically, Repeat Labs Problem Text: Meropenem and Pen G started as per recent urine cultures/ sensitivities = pseudomonas, e. faecalis Recent right ureteral stent placement. Discussed with urology dr. zeng - continue antibiotics. (2) Neurogenic bladder Status: Chronic Discussed With: Patient Problem Specific Plan: Consult Specialist, Monitor Clinically Problem Text: Patient self catheterizes. Nursing to monitor to ensure adequate technique. (3) Obstructive uropathy Status: Acute Problem Specific Plan: Consult Specialist, Monitor Clinically Problem Text: D/w urology, assistance appreciated. No surgical intervention. (4) Hydrocephalus Status: Chronic Problem Text: s/p svp research and strategic analysis shunt as per medical records (5) Spina bifida Status: Chronic Discussed With: Patient (6) Nicotine abuse Discussed With: Patient Plan/VTE VTE Prophylaxis Ordered?: Yes (lovenox) Plan IVF: Continue Diet: Continue Current Activity: Continue Current Diagnostics: Repeat Labs in AM, Obtain Cultures Continue IV antibiotics, pain control. Follow as per urology. Discussed with Dr. Sreedhar flannery who also agree with continuing current abx regimen. Follow blood and urine cultures. VS, I&O, 24H, Fishbone Vital Signs/I&O Vital Signs Date Time Temp Pulse Resp B/P (MAP) Pulse Ox O2 Delivery O2 Flow Rate FiO2 12/04/16 09:57 18 Room Air 12/04/16 06:00 97.6 86 106/52 (70) 97 I&O- Last 24 Hours up to 6 AM 12/04/16 06:00 Intake Total 4424 ml Output Total 2970 ml Balance 1454 ml Laboratory Data 24H LABS Laboratory Tests 2 12/04/16 05:38: White Blood Count 16.7H, Red Blood Count 4.03L, Hemoglobin 11.5L, Hematocrit 35.2L, Mean Corpuscular Volume 87.3, Mean Corpuscular Hemoglobin 28.5, Mean Corpuscular Hemoglobin Concent 32.6, Red Cell Distribution Width 15.5H, Platelet Count 221, Neutrophils (%) (Auto) 86.8H, Lymphocytes (%) (Auto) 4.4L, Monocytes (%) (Auto) 5.9H, Eosinophils (%) (Auto) 0.4, Basophils (%) (Auto) 0.1 , Neutrophils # (Auto) 14.5H, Lymphocytes # (Auto) 0.7L, Monocytes # (Auto) 1.0H , Eosinophils # (Auto) 0.1, Basophils # (Auto) 0.0, Large Unclassified Cells % 2.4, Large Unclassified Cells # 0.4, Anion Gap 5L, Glomerular Filtration Rate > 60.0, Blood Urea Nitrogen 13, Creatinine 0.72, Sodium Level 137, Potassium Level 4.2#, Chloride Level 107, Carbon Dioxide Level 25, Calcium Level 7.5L, Aspartate Amino Transf (AST/SGOT) 19, Alanine Aminotransferase (ALT/SGPT) 20, Alkaline Phosphatase 65, Total Bilirubin 0.2, Total Protein 5.3L, Albumin 1.8#L , Albumin/Globulin Ratio 0.51L CBC/BMP Laboratory Tests 12/04/16 05:38 Red Blood Count 4.03 L, Mean Corpuscular Volume 87.3, Mean Corpuscular Hemoglobin 28.5, Mean Corpuscular Hemoglobin Concent 32.6, Red Cell Distribution Width 15.5 H, Neutrophils (%) (Auto) 86.8 H, Lymphocytes (%) (Auto ) 4.4 L, Monocytes (%) (Auto) 5.9 H, Eosinophils (%) (Auto) 0.4, Basophils (%) ( Auto) 0.1, Neutrophils # (Auto) 14.5 H, Lymphocytes # (Auto) 0.7 L, Monocytes # (Auto) 1.0 H, Eosinophils # (Auto) 0.1, Basophils # (Auto) 0.0, Calcium Level 7.5 L, Aspartate Amino Transf (AST/SGOT) 19, Alanine Aminotransferase (ALT/SGPT ) 20, Alkaline Phosphatase 65, Total Bilirubin 0.2, Total Protein 5.3 L, Albumin 1.8 #L Microbiology Microbiology 12/03/16 Blood Culture, Received Pending 12/03/16 Blood Culture, Received Pending 12/02/16 Blood Culture - Preliminary, Resulted No growth after 24 hours . All specim... 12/02/16 Blood Culture - Preliminary, Resulted 12/03/16 MRSA Screen, Received Pending 12/02/16 Urine Culture, Received Pending FOSTER ANDREWS MD December 04, 2016 11:08
--- NOTE | 2016-12-04 12:09 | IPNPDOC ---
Assessment/Plan Date Seen The patient was seen on 12/04/16. Patient Summary pt s/p right stone procedure by outside urologist with stent. admitted with right flank pain and fever. findings c/w sepsis from pyelonephritis. gnr in blood. ID pending. urine culture also pending. Problems (1) Pyelonephritis Status: Acute Response to Treatment: Stable Discussed With: Patient Urology Problem Text: will await culture results and adjust antibiotics if neccessary (2) Neurogenic bladder Status: Chronic Response to Treatment: Improving Discussed With: Patient Urology Problem Text: cont gray until clinically better (3) Obstructive uropathy Status: Acute Response to Treatment: Stable Discussed With: Patient (4) Hydrocephalus Status: Chronic (5) Spina bifida Status: Chronic (6) Nicotine abuse Plan/VTE VTE Prophylaxis Ordered?: Yes (lovenox) Plan/Urinary Catheter Reason for insertion/continuin: Other-document below (pt with neurogenic bladder and mild hydro and pylonephritis. need to prevent reflux ) Plan IVF: Continue Diet: Continue Current Activity: Continue Current Diagnostics: Repeat Labs in AM, Obtain Cultures Subjective Review oF Systems Chief Complaint The patient is a 30-year-old male admitted with a reason for visit of Obstructive Uropathy. Events since Last Encounter appears to have right pyelonephritis. urine culture pending, but blood cultures positive for gram neg rods. General: Reports: Chills, Night Sweats, Fatigue, Malaise Constitutional: Reports: Fever, Chills, Sweats, Weakness, Malaise Eyes: Denies: Pain, Vision change ENT: Reports: Head Aches Skin: Denies: Rash, Lesions, Breakdown, Nail Changes Pulmonary: Denies: Dyspnea, Cough Cardiovascular: Denies Chest Pain, Denies Palpitations Gastrointestinal: Reports: Nausea Genitourinary: Reports: Other Symptoms (gray cath in place.), Denies: Dysuria, Frequency, Incontinence, Hematuria Hematologic: Denies: Bruising, Bleeding Excessively Endocrine: Denies: Polydipsia, Polyphagia, Polyuria Musculoskeletal: Reports: Back Pain (right flank) Neurological: Reports: Weakness Psych: Reports: Mood Normal, Denies: Anxiety, Depression Objective Physical Examination General Exam: Alert, Cooperative, Mild Distress (complainting of head ache, chills, nausia and flank pain.) Eye Exam: PERRLA, Conjunctiva & lids normal, EOMI, Ptosis, Other Eye Symptoms, No: Sclera icteric ENT EXAM: Atraumatic Heart Exam: Positive: Rate Normal, Regular Rhythm Psych Exam: Mental status NL Vital Signs/I&O Vital Signs Date Time Temp Pulse Resp B/P (MAP) Pulse Ox O2 Delivery O2 Flow Rate FiO2 12/04/16 09:57 18 Room Air 12/04/16 06:00 97.6 86 106/52 (70) 97 I&O- Last 24 Hours up to 6 AM 12/04/16 06:00 Intake Total 4424 ml Output Total 2970 ml Balance 1454 ml Laboratory Data Labs 24H Laboratory Tests 2 12/04/16 05:38: White Blood Count 16.7H, Red Blood Count 4.03L, Hemoglobin 11.5L, Hematocrit 35.2L, Mean Corpuscular Volume 87.3, Mean Corpuscular Hemoglobin 28.5, Mean Corpuscular Hemoglobin Concent 32.6, Red Cell Distribution Width 15.5H, Platelet Count 221, Neutrophils (%) (Auto) 86.8H, Lymphocytes (%) (Auto) 4.4L, Monocytes (%) (Auto) 5.9H, Eosinophils (%) (Auto) 0.4, Basophils (%) (Auto) 0.1 , Neutrophils # (Auto) 14.5H, Lymphocytes # (Auto) 0.7L, Monocytes # (Auto) 1.0H , Eosinophils # (Auto) 0.1, Basophils # (Auto) 0.0, Large Unclassified Cells % 2.4, Large Unclassified Cells # 0.4, Anion Gap 5L, Glomerular Filtration Rate > 60.0, Blood Urea Nitrogen 13, Creatinine 0.72, Sodium Level 137, Potassium Level 4.2#, Chloride Level 107, Carbon Dioxide Level 25, Calcium Level 7.5L, Aspartate Amino Transf (AST/SGOT) 19, Alanine Aminotransferase (ALT/SGPT) 20, Alkaline Phosphatase 65, Total Bilirubin 0.2, Total Protein 5.3L, Albumin 1.8#L , Albumin/Globulin Ratio 0.51L CBC/BMP Laboratory Tests 12/04/16 05:38 Red Blood Count 4.03 L, Mean Corpuscular Volume 87.3, Mean Corpuscular Hemoglobin 28.5, Mean Corpuscular Hemoglobin Concent 32.6, Red Cell Distribution Width 15.5 H, Neutrophils (%) (Auto) 86.8 H, Lymphocytes (%) (Auto ) 4.4 L, Monocytes (%) (Auto) 5.9 H, Eosinophils (%) (Auto) 0.4, Basophils (%) ( Auto) 0.1, Neutrophils # (Auto) 14.5 H, Lymphocytes # (Auto) 0.7 L, Monocytes # (Auto) 1.0 H, Eosinophils # (Auto) 0.1, Basophils # (Auto) 0.0, Calcium Level 7.5 L, Aspartate Amino Transf (AST/SGOT) 19, Alanine Aminotransferase (ALT/SGPT ) 20, Alkaline Phosphatase 65, Total Bilirubin 0.2, Total Protein 5.3 L, Albumin 1.8 #L Microbiology Microbiology 12/03/16 Blood Culture, Received Pending 12/03/16 Blood Culture, Received Pending 12/02/16 Blood Culture - Preliminary, Resulted No growth after 24 hours . All specim... 12/02/16 Blood Culture - Preliminary, Resulted 12/03/16 MRSA Screen, Received Pending 12/02/16 Urine Culture, Received Pending JESSICA DUKE MD December 04, 2016 12:09
[2016-12-04] MEDS: DOCUSATE SODIUM 100 MG CAP PO SCH ×2 (13:45→21:23)
[2016-12-04] MEDS: PERCOCET 5MG/325MG TAB PO PRN ×2 (13:51→21:26)
[2016-12-04 13:53] VITALS: BP 155/99
[2016-12-04] MEDS ORDERED: SENNA 8.6 MG TAB (SENOKOT) PO PRN (14:15)
[2016-12-04 15:50] VITALS: BP 117/60
--- NOTE | 2016-12-04 17:31 | ECGEPIP ---
Stationary ECG Study [facility] Test Date: 2016-12-04 Pat Name: SREE WHITTEN Department: Room: [place] [address] Gender: M [employer]: SUZY : 1985 Requested By: FOSTER Soares Order Number: [id number] Reading MD: Maggi Ley Measurements Intervals [place] Rate: 78 P: 20 DC: 119 QRS: 13 QRSD: 93 T: 18 QT: 340 QTc: 389 Interpretive Statements SINUS RHYTHM WITH SHORT DC INTERVAL RATE SLOWER C/W 12/02/16 Electronically Signed On 12-04-2016 17:31:16 EDT by Maggi Ley
[2016-12-04 20:00] VITALS: BP 116/66; PULSE 97
[2016-12-04] MEDS: diphenhydrAMINE 25 MG CAP PO PRN (23:34)
[2016-12-05] VITALS (7 sets, daily range): BP systolic 105–134; BP diastolic 62–76; PULSE 89–93
[2016-12-05] MEDS: PENICILLIN G POTASSIUM IV 5 MU in D5W MINI-BAG PLUS 100 ML IV SCH ×2 (01:21→04:29)
[2016-12-05] MEDS: PERCOCET 5MG/325MG TAB PO PRN (04:34)
[2016-12-05 05:26] LABS: BASO % 0.1 % (0.0-1.0); EOS # 0.1 K/mm3 (0.0-0.50); EOS % 0.8 % (0.0-3.0); LARGE UNSTAINED CELL # 0.4 K/mm3 (0.0-0.4); LARGE UNSTAINED CELL % 2.6 % (0.0-4.0); LYMPH # 0.8 K/mm3 (1.5-6.5); LYMPH % 5.1 % (24.0-44.0); MEAN CORPUSCULAR HEMOGLOBIN 28.7 pg (27.0-33.0); MEAN CORPUSCULAR HGB CONC 32.8 g/dl (32.0-36.5); MEAN CORPUSCULAR VOLUME 87.4 fl (80.0-96.0); MONO # 0.9 K/mm3 (0.0-0.8); MONO % 5.9 % (0.0-5.0); NEUTROPHILS # 12.6 K/mm3 (1.8-7.7); NEUTROPHILS % 85.5 % (36.0-66.0); PLATELET COUNT, AUTOMATED 253 k/mm3 (150-450); RED CELL DISTRIBUTION WIDTH 15.6 % (11.5-14.5); WHITE BLOOD COUNT 14.8 K/mm3 (4.0-10.0)
[2016-12-05] MEDS: MEROPENEM INJ 1 GM in D5W MINI-BAG PLUS 100 ML IV SCH ×3 (05:45→22:25)
[2016-12-05] MEDS: KCL 40MEQ in NS 1000ML 1,000 ML IV SCH ×2 (05:45→17:12)
[2016-12-05] MEDS: MORPHINE 4 MG/ML 1ML SYRINGE IV PRN (05:47)
[2016-12-05 05:53] LABS: ALBUMIN/GLOBULIN RATIO 0.54 (1.00-1.93); ALKALINE PHOSPHATASE 78 U/L (45-117); ALT/SGPT 22 U/L (12-78); ANION GAP 7 MEQ/L (8-16); AST/SGOT 15 U/L (15-37); BILIRUBIN,TOTAL 0.3 MG/DL (0.2-1.0); BLOOD UREA NITROGEN 8 MG/DL (7-18); CALCIUM LEVEL 8.2 MG/DL (8.5-10.1); CARBON DIOXIDE LEVEL 26 MEQ/L (21-32); CHLORIDE LEVEL 100 MEQ/L (98-107); CREATININE FOR GFR 0.73 MG/DL (0.70-1.30); GLOMERULAR FILTRATION RATE > 60.0 (>60); GLUCOSE, FASTING 140 MG/DL (70-105); POTASSIUM SERUM 4.3 MEQ/L (3.5-5.1); SODIUM LEVEL 133 MEQ/L (136-145); TOTAL PROTEIN 5.7 GM/DL (6.4-8.2)
[2016-12-05] MEDS: CIPROFLOXACIN 400 MG in APPROPRIATE DILUENT 1 EA IV SCH ×2 (06:54→17:11)
--- NOTE | 2016-12-05 07:33 | IPNPDOC ---
Subjective Date Seen The patient was seen on 12/05/16. Subjective Chief Complaint/HPI The patient is a 30-year-old male admitted with a reason for visit of Obstructive Uropathy. General: Reports: Malaise, Denies: ROS Unobtainable, Chills, Night Sweats, Fatigue, Normal Appetite, Other Symptoms Constitutional: Reports: Chills, Fever, Malaise, Denies: Night Sweats, Weakness, Fatigue, Weight Loss, Lethargy, Other Eyes: Denies: Pain, Vision change, Conjunctivae inflammation, Eyelid inflammation, Redness, Other ENT: Denies: Head Aches, Ear Pain, Dysphagia, Sinus Congestion, Post Nasal Drip , Sore Throat, Epistaxis, Other Symptoms Skin: Denies: Rash, Lesions, Jaundice, Bruising, Itching, Dry, Breakdown, Nail Changes, Other Pulmonary: Denies: Dyspnea, Cough, Pleuritic Chest Pain, Other Symptoms Cardiovascular: Denies: Chest Pain, Palpitations, Orthopnea, Paroxysmal Noc. Dyspnea, Edema, Lt Headedness, Other Symptoms Gastrointestinal: Reports: Other Symptoms (right flank pain), Denies: Nausea, Vomiting, Abdominal Pain, Diarrhea, Constipation, Melena, Hematochezia Genitourinary: Denies: Dysuria, Frequency, Incontinence, Hematuria, Retention, Other Symptoms Hematologic: Denies: Bruising, Bleeding Excessively, Petecchia, Purpura, Enlarged Lymph Nodes, Other Hematologic Objective Physical Examination General Exam: Positive: Alert, Cooperative, No Acute Distress Eye Exam: Positive: PERRLA, Conjunctiva & lids normal, EOMI, Negative: Sclera icteric ENT Exam: Positive: Atraumatic Neck Exam: Positive: Supple Chest Exam: Positive: Clear to auscultation, Normal air movement Heart Exam: Positive: Rate Normal, Regular Rhythm Telemetry: Positive: No significant arrhythmia, Sinus Abdomen Exam: Positive: Normal bowel sounds, Soft, Tenderness (right cva tenderness) Extremity Exam: Negative: Edema Psych Exam: Positive: Oriented x 3 Assessment /Plan Problems (1) Bacteremia due to Pseudomonas Status: Acute Response to Treatment: Improving Discussed With: Patient Problem Specific Plan: Monitor Clinically, Repeat Labs Problem Text: Continue meropenem. Zosyn added. (2) Pyelonephritis Status: Acute Problem Text: ucx consistent with previous cultures - pseudo + enterococci: continue meropenem, transition pen g to cipro for better JACOB and easier transition to PO. Zosyn for double pseudomonal coverage. Appreciate urology assistance. Fever curve improving leukocytosis improving. Recent right ureteral stent placement. D/W Dr. Eli's service yesterday, no need for transfer. Patient missed first follow up after stent placement, was scheduled for follow up tomorrow 12/06. Discussed with urology dr. zeng - continue antibiotics. Follow as per urology. (3) Neurogenic bladder Status: Chronic Problem Text: Patient self catheterizes. Nursing to monitor to ensure adequate technique. (4) Obstructive uropathy Status: Acute Problem Text: D/w urology in house as well as dr. eli's service who placed stent - no surgical intervention, assistance appreciated. (5) Hydrocephalus Status: Chronic Problem Text: s/p vp data shunt as per medical records (6) Spina bifida Status: Chronic (7) Nicotine abuse Plan/VTE VTE Prophylaxis Ordered?: Yes (lovenox) Plan/Urinary Catheter Reason for insertion/continuin: Other-document below (pt with neurogenic bladder and mild hydro and pylonephritis. need to prevent reflux ) Plan IVF: Continue Diet: Continue Current Activity: Continue Current Medications: Taper Antibiotics Diagnostics: Repeat Labs in AM, Obtain Cultures Continue with antibiotics. Follow as per urology. VS, I&O, 24H, Fishbone Vital Signs/I&O Vital Signs Date Time Temp Pulse Resp B/P (MAP) Pulse Ox O2 Delivery O2 Flow Rate FiO2 12/05/16 06:15 16 12/05/16 04:34 Room Air 12/05/16 04:00 100.2 98 122/76 (91) 97 I&O- Last 24 Hours up to 6 AM 12/05/16 06:00 Intake Total 6830 ml Output Total 7850 ml Balance -1020 ml Laboratory Data 24H LABS Laboratory Tests 2 12/05/16 05:12: White Blood Count 14.8H, Red Blood Count 4.08L, Hemoglobin 11.7L, Hematocrit 35.7L, Mean Corpuscular Volume 87.4, Mean Corpuscular Hemoglobin 28.7, Mean Corpuscular Hemoglobin Concent 32.8, Red Cell Distribution Width 15.6H, Platelet Count 253, Neutrophils (%) (Auto) 85.5H, Lymphocytes (%) (Auto) 5.1L, Monocytes (%) (Auto) 5.9H, Eosinophils (%) (Auto) 0.8, Basophils (%) (Auto) 0.1 , Neutrophils # (Auto) 12.6H, Lymphocytes # (Auto) 0.8L, Monocytes # (Auto) 0.9H , Eosinophils # (Auto) 0.1, Basophils # (Auto) 0.0, Large Unclassified Cells % 2.6, Large Unclassified Cells # 0.4, Anion Gap 7L, Glomerular Filtration Rate > 60.0, Blood Urea Nitrogen 8, Creatinine 0.73, Sodium Level 133L, Potassium Level 4.3, Chloride Level 100, Carbon Dioxide Level 26, Calcium Level 8.2L, Aspartate Amino Transf (AST/SGOT) 15, Alanine Aminotransferase (ALT/SGPT) 22, Alkaline Phosphatase 78, Total Bilirubin 0.3, Total Protein 5.7L, Albumin 2.0L, Albumin/Globulin Ratio 0.54L CBC/BMP Laboratory Tests 12/05/16 05:12 Red Blood Count 4.08 L, Mean Corpuscular Volume 87.4, Mean Corpuscular Hemoglobin 28.7, Mean Corpuscular Hemoglobin Concent 32.8, Red Cell Distribution Width 15.6 H, Neutrophils (%) (Auto) 85.5 H, Lymphocytes (%) (Auto ) 5.1 L, Monocytes (%) (Auto) 5.9 H, Eosinophils (%) (Auto) 0.8, Basophils (%) ( Auto) 0.1, Neutrophils # (Auto) 12.6 H, Lymphocytes # (Auto) 0.8 L, Monocytes # (Auto) 0.9 H, Eosinophils # (Auto) 0.1, Basophils # (Auto) 0.0, Calcium Level 8.2 L, Aspartate Amino Transf (AST/SGOT) 15, Alanine Aminotransferase (ALT/SGPT ) 22, Alkaline Phosphatase 78, Total Bilirubin 0.3, Total Protein 5.7 L, Albumin 2.0 L Microbiology Microbiology 12/03/16 Blood Culture - Preliminary, Resulted No growth after 24 hours . All specim... 12/03/16 Blood Culture - Preliminary, Resulted No growth after 24 hours . All specim... 12/02/16 Blood Culture - Preliminary, Resulted No Growth after 48 hours. All Specime... 12/02/16 Blood Culture - Final, Complete Pseudomonas Aeruginosa 12/03/16 MRSA Screen - Final, Complete 12/02/16 Urine Culture - Final, Complete Pseudomonas Aeruginosa Enterococcus Faecalis FOSTER ANDREWS MD December 05, 2016 07:33
[2016-12-05] MEDS: DOCUSATE SODIUM 100 MG CAP PO SCH ×2 (09:05→21:00)
[2016-12-05] MEDS: oxyBUTYnin 5 MG TAB PO SCH (09:05)
[2016-12-05] MEDS: ENOXAPARIN 40 MG/0.4 ML SYRINGE (J1650) SC SCH (09:07)
[2016-12-05] MEDS: ONDANSETRON 4MG/2ML VIAL (J2405) IV PRN ×2 (09:12→19:38)
[2016-12-05] MEDS ORDERED: PIPERACILLIN/TAZOBACTAM SOD 3.375 GM in D5W MINI-BAG PLUS 50 ML IV SCH (12:00)
[2016-12-05] MEDS: oxyCODONE 5MG TAB PO PRN ×2 (12:06→17:40)
[2016-12-05] MEDS: ACETAMINOPHEN 500 MG TAB PO PRN ×2 (12:07→19:39)
--- NOTE | 2016-12-05 12:38 | IPNPDOC ---
Assessment/Plan Date Seen The patient was seen on 12/05/16. Patient Summary pt with r pyelonephritis with a stent. mild left hydro likely chronic. pt normally cic but now with gray. urine growing pseudomonas (resistant to cirpo) and enterococcus. still spiking fevers and cont to feel bad. will add zosyn which will cover the pseudomonas and likely the enterococcus as well pt can still spike fevers for even 3 days after starting appropriate antibiotics. pt counceled about this and he understands. hopefully once zosyn is on board he will start to improve Problems (1) Bacteremia due to Pseudomonas Status: Acute Response to Treatment: Stable Discussed With: Patient Urology Problem Text: cult now confirmed to have pseudomonas and enterococcus. start zosyn today (2) Pyelonephritis Status: Acute Response to Treatment: Stable Discussed With: Patient Urology Problem Text: cult now confirmed to have pseudomonas and enterococcus. start zosyn today (3) Neurogenic bladder Status: Chronic Response to Treatment: Stable Discussed With: Patient Urology Problem Text: keep gray until clinically stable (4) Obstructive uropathy Status: Acute Response to Treatment: Stable Discussed With: Nurse, Patient Urology Problem Text: stent in place (5) Hydrocephalus Status: Chronic (6) Spina bifida Status: Chronic (7) Nicotine abuse Plan/VTE VTE Prophylaxis Ordered?: Yes (lovenox) Plan/Urinary Catheter Reason for insertion/continuin: Acute obstruct/retention (pt with neurogenic bladder and mild hydro and pylonephritis. need to prevent reflux ) Plan IVF: Continue Diet: Continue Current Activity: Continue Current Medications: Taper Antibiotics Diagnostics: Repeat Labs in AM, Obtain Cultures Subjective Review oF Systems Chief Complaint The patient is a 30-year-old male admitted with a reason for visit of Obstructive Uropathy. Events since Last Encounter pt with r pyelonephritis with a stent. mild left hydro likely chronic. pt normally cic but now with gray. urine growing pseudomonas (resistant to cirpo) and enterococcus. still spiking fevers and cont to feel bad. Constitutional: Reports: Fever, Chills, Sweats, Weakness, Malaise Pulmonary: Denies: Dyspnea, Cough Cardiovascular: Denies Chest Pain, Denies Palpitations Gastrointestinal: Denies: Nausea, Vomiting, Abdominal Pain Genitourinary: Reports: Retention Psych: Reports: Mood Normal Objective Physical Examination General Exam: Alert, Cooperative, Mild Distress (complainting of head ache, chills, nausia and flank pain as well as cont fevers.) Eye Exam: PERRLA, Conjunctiva & lids normal, EOMI, Ptosis, Other Eye Symptoms, No: Sclera icteric ENT EXAM: Atraumatic Heart Exam: Positive: Rate Normal, Regular Rhythm Male Exam: Normal Genital Exam (gray in place and draining well) Psych Exam: Mental status NL Vital Signs/I&O Vital Signs Date Time Temp Pulse Resp B/P (MAP) Pulse Ox O2 Delivery O2 Flow Rate FiO2 12/05/16 12:06 20 12/05/16 09:05 Room Air 12/05/16 08:00 98.0 85 105/64 (78) 100 I&O- Last 24 Hours up to 6 AM 12/05/16 05:59 Intake Total 6290 ml Output Total 7700 ml Balance -1410 ml Laboratory Data Labs 24H Laboratory Tests 2 12/05/16 05:12: White Blood Count 14.8H, Red Blood Count 4.08L, Hemoglobin 11.7L, Hematocrit 35.7L, Mean Corpuscular Volume 87.4, Mean Corpuscular Hemoglobin 28.7, Mean Corpuscular Hemoglobin Concent 32.8, Red Cell Distribution Width 15.6H, Platelet Count 253, Neutrophils (%) (Auto) 85.5H, Lymphocytes (%) (Auto) 5.1L, Monocytes (%) (Auto) 5.9H, Eosinophils (%) (Auto) 0.8, Basophils (%) (Auto) 0.1 , Neutrophils # (Auto) 12.6H, Lymphocytes # (Auto) 0.8L, Monocytes # (Auto) 0.9H , Eosinophils # (Auto) 0.1, Basophils # (Auto) 0.0, Large Unclassified Cells % 2.6, Large Unclassified Cells # 0.4, Anion Gap 7L, Glomerular Filtration Rate > 60.0, Blood Urea Nitrogen 8, Creatinine 0.73, Sodium Level 133L, Potassium Level 4.3, Chloride Level 100, Carbon Dioxide Level 26, Calcium Level 8.2L, Aspartate Amino Transf (AST/SGOT) 15, Alanine Aminotransferase (ALT/SGPT) 22, Alkaline Phosphatase 78, Total Bilirubin 0.3, Total Protein 5.7L, Albumin 2.0L, C-Reactive Protein, Quantitative 20.70H, Albumin/Globulin Ratio 0.54L CBC/BMP Laboratory Tests 12/05/16 05:12 Red Blood Count 4.08 L, Mean Corpuscular Volume 87.4, Mean Corpuscular Hemoglobin 28.7, Mean Corpuscular Hemoglobin Concent 32.8, Red Cell Distribution Width 15.6 H, Neutrophils (%) (Auto) 85.5 H, Lymphocytes (%) (Auto ) 5.1 L, Monocytes (%) (Auto) 5.9 H, Eosinophils (%) (Auto) 0.8, Basophils (%) ( Auto) 0.1, Neutrophils # (Auto) 12.6 H, Lymphocytes # (Auto) 0.8 L, Monocytes # (Auto) 0.9 H, Eosinophils # (Auto) 0.1, Basophils # (Auto) 0.0, Calcium Level 8.2 L, Aspartate Amino Transf (AST/SGOT) 15, Alanine Aminotransferase (ALT/SGPT ) 22, Alkaline Phosphatase 78, Total Bilirubin 0.3, Total Protein 5.7 L, Albumin 2.0 L Microbiology Microbiology 12/03/16 Blood Culture - Preliminary, Resulted No growth after 24 hours . All specim... 12/03/16 Blood Culture - Preliminary, Resulted No growth after 24 hours . All specim... 12/02/16 Blood Culture - Preliminary, Resulted No Growth after 48 hours. All Specime... 12/02/16 Blood Culture - Final, Complete Pseudomonas Aeruginosa 12/03/16 MRSA Screen - Final, Complete 12/02/16 Urine Culture - Final, Complete Pseudomonas Aeruginosa Enterococcus Faecalis JESSICA DUKE MD December 05, 2016 12:38
[2016-12-05] MEDS: MORPHINE 2 MG/ML 1ML SYRINGE IV PRN ×2 (14:29→19:38)
[2016-12-05] MEDS: diphenhydrAMINE 25 MG CAP PO PRN (22:25)
[2016-12-06] MEDS: MORPHINE 2 MG/ML 1ML SYRINGE IV PRN ×3 (00:07→11:24)
[2016-12-06] MEDS: KCL 40MEQ in NS 1000ML 1,000 ML IV SCH ×3 (00:08→22:26)
[2016-12-06] MEDS: oxyCODONE 5MG TAB PO PRN ×4 (01:21→18:25)
[2016-12-06 04:00] VITALS: BP 136/72
[2016-12-06] MEDS: ACETAMINOPHEN 500 MG TAB PO PRN (04:47)
[2016-12-06] MEDS: MEROPENEM INJ 1 GM in D5W MINI-BAG PLUS 100 ML IV SCH ×2 (04:47→12:19)
[2016-12-06] MEDS: ONDANSETRON 4MG/2ML VIAL (J2405) IV PRN (04:54)
[2016-12-06 05:09] LABS: BASO % 0.3 % (0.0-1.0); EOS # 0.2 K/mm3 (0.0-0.50); EOS % 1.9 % (0.0-3.0); LARGE UNSTAINED CELL # 0.4 K/mm3 (0.0-0.4); LARGE UNSTAINED CELL % 3.7 % (0.0-4.0); LYMPH # 1.5 K/mm3 (1.5-6.5); LYMPH % 9.8 % (24.0-44.0); MEAN CORPUSCULAR HEMOGLOBIN 28.7 pg (27.0-33.0); MEAN CORPUSCULAR HGB CONC 33.9 g/dl (32.0-36.5); MEAN CORPUSCULAR VOLUME 84.7 fl (80.0-96.0); MONO # 0.9 K/mm3 (0.0-0.8); MONO % 8.4 % (0.0-5.0); NEUTROPHILS # 8.1 K/mm3 (1.8-7.7); NEUTROPHILS % 75.9 % (36.0-66.0); PLATELET COUNT, AUTOMATED 304 k/mm3 (150-450); RED CELL DISTRIBUTION WIDTH 15.9 % (11.5-14.5); WHITE BLOOD COUNT 10.7 K/mm3 (4.0-10.0)
[2016-12-06 05:30] LABS: ALBUMIN 2.2 GM/DL (3.2-5.2); ALBUMIN/GLOBULIN RATIO 0.48 (1.00-1.93); ALKALINE PHOSPHATASE 93 U/L (45-117); ALT/SGPT 31 U/L (12-78); ANION GAP 8 MEQ/L (8-16); AST/SGOT 16 U/L (15-37); BILIRUBIN,TOTAL 0.4 MG/DL (0.2-1.0); BLOOD UREA NITROGEN 12 MG/DL (7-18); CALCIUM LEVEL 8.7 MG/DL (8.5-10.1); CARBON DIOXIDE LEVEL 27 MEQ/L (21-32); CHLORIDE LEVEL 101 MEQ/L (98-107); CREATININE FOR GFR 0.64 MG/DL (0.70-1.30); GLOMERULAR FILTRATION RATE > 60.0 (>60); GLUCOSE, FASTING 95 MG/DL (70-105); POTASSIUM SERUM 4.5 MEQ/L (3.5-5.1); SODIUM LEVEL 136 MEQ/L (136-145); TOTAL PROTEIN 6.8 GM/DL (6.4-8.2)
[2016-12-06] MEDS: CIPROFLOXACIN 400 MG in APPROPRIATE DILUENT 1 EA IV SCH (05:31)
[2016-12-06 07:27] LABS: ERYTHROCYTE SEDIMENTATION RATE 71 mm/hr (0-15)
[2016-12-06 08:00] VITALS: BP 116/63
[2016-12-06] MEDS: oxyBUTYnin 5 MG TAB PO SCH (08:45)
[2016-12-06] MEDS: DOCUSATE SODIUM 100 MG CAP PO SCH ×2 (08:46→21:00)
[2016-12-06] MEDS: ENOXAPARIN 40 MG/0.4 ML SYRINGE (J1650) SC SCH (08:46)
--- NOTE | 2016-12-06 11:21 | IPNPDOC ---
Subjective Date Seen The patient was seen on 12/06/16. Subjective Chief Complaint/HPI The patient is a 30-year-old male admitted with a reason for visit of Obstructive Uropathy. General: Denies: ROS Unobtainable, Chills, Night Sweats, Fatigue, Malaise, Normal Appetite, Other Symptoms Constitutional: Denies: Chills, Fever, Malaise, Night Sweats, Weakness, Fatigue , Weight Loss, Lethargy, Other Eyes: Denies: Pain, Vision change, Conjunctivae inflammation, Eyelid inflammation, Redness, Other ENT: Denies: Head Aches, Ear Pain, Dysphagia, Sinus Congestion, Post Nasal Drip , Sore Throat, Epistaxis, Other Symptoms Skin: Denies: Rash, Lesions, Jaundice, Bruising, Itching, Dry, Breakdown, Nail Changes, Other Pulmonary: Denies: Dyspnea, Cough, Pleuritic Chest Pain, Other Symptoms Cardiovascular: Denies: Chest Pain, Palpitations, Orthopnea, Paroxysmal Noc. Dyspnea, Edema, Lt Headedness, Other Symptoms Gastrointestinal: Reports: Other Symptoms (right flank pain), Denies: Nausea, Vomiting, Abdominal Pain, Diarrhea, Constipation, Melena, Hematochezia Objective Physical Examination General Exam: Positive: Alert, Cooperative, No Acute Distress Eye Exam: Positive: PERRLA, Conjunctiva & lids normal, EOMI ENT Exam: Positive: Atraumatic Neck Exam: Positive: Supple Chest Exam: Positive: Clear to auscultation, Normal air movement Heart Exam: Positive: Rate Normal, Regular Rhythm Telemetry: Positive: No significant arrhythmia, Sinus, Bradycardia Abdomen Exam: Positive: Normal bowel sounds, Soft, Tenderness (right cva tenderness) Extremity Exam: Negative: Edema Psych Exam: Positive: Oriented x 3 Assessment /Plan Problems (1) Bacteremia due to Pseudomonas Status: Acute Response to Treatment: Improving Discussed With: Patient Problem Specific Plan: Monitor Clinically, Repeat Labs Problem Text: Continue meropenem. Zosyn added. ID consultation pending. (2) Pyelonephritis Status: Acute Problem Text: ucx consistent with previous cultures - pseudo + enterococci: continue meropenem, transition pen g to cipro for better JACOB and easier transition to PO. Zosyn for double pseudomonal coverage - Appreciate urology assistance. Fever curve improving leukocytosis improving. Recent right ureteral stent placement. D/W Dr. Eli's service ([facility]), no need for transfer. Patient missed first follow up after stent placement, was scheduled for follow up today 12/06. Discussed with urology dr. zeng - continue antibiotics. Follow as per urology. (3) Neurogenic bladder Status: Chronic Problem Text: Patient self catheterizes. Nursing to monitor to ensure adequate technique. (4) Obstructive uropathy Status: Acute Problem Text: D/w urology in house as well as dr. eli's service who placed stent - no surgical intervention, assistance appreciated. (5) Hydrocephalus Status: Chronic Problem Text: s/p svp digital ad sales shunt as per medical records (6) Spina bifida Status: Chronic (7) Nicotine abuse Plan/VTE VTE Prophylaxis Ordered?: Yes (lovenox) Plan/Urinary Catheter Reason for insertion/continuin: Acute obstruct/retention (pt with neurogenic bladder and mild hydro and pylonephritis. need to prevent reflux ) Plan IVF: Continue Diet: Continue Current Activity: Continue Current Medications: Taper Antibiotics Diagnostics: Repeat Labs in AM, Obtain Cultures Continuing with Zosyn, meropenem, cipro. ID consultation pending. Leukocytosis continues to improve, still febrile but fever curve improving. VS, I&O, 24H, Fishbone Vital Signs/I&O Vital Signs Date Time Temp Pulse Resp B/P (MAP) Pulse Ox O2 Delivery O2 Flow Rate FiO2 12/06/16 09:35 18 Room Air 12/06/16 08:00 98.5 79 116/63 (80) 94 I&O- Last 24 Hours up to 6 AM 12/06/16 06:00 Intake Total 2600 ml Output Total 7700 ml Balance -5100 ml Laboratory Data 24H LABS Laboratory Tests 2 12/06/16 04:48: White Blood Count 10.7H, Red Blood Count 4.59, Hemoglobin 13.2L, Hematocrit 38.9L, Mean Corpuscular Volume 84.7, Mean Corpuscular Hemoglobin 28.7, Mean Corpuscular Hemoglobin Concent 33.9, Red Cell Distribution Width 15.9H, Platelet Count 304, Neutrophils (%) (Auto) 75.9H, Lymphocytes (%) (Auto) 9.8L, Monocytes (%) (Auto) 8.4H, Eosinophils (%) (Auto) 1.9, Basophils (%) (Auto) 0.3 , Neutrophils # (Auto) 8.1H, Lymphocytes # (Auto) 1.5, Monocytes # (Auto) 0.9H, Eosinophils # (Auto) 0.2, Basophils # (Auto) 0.0, Large Unclassified Cells % 3.7 , Large Unclassified Cells # 0.4, Erythrocyte Sedimentation Rate 71H, Anion Gap 8, Glomerular Filtration Rate > 60.0, Blood Urea Nitrogen 12, Creatinine 0.64L, Sodium Level 136, Potassium Level 4.5, Chloride Level 101, Carbon Dioxide Level 27, Calcium Level 8.7, Aspartate Amino Transf (AST/SGOT) 16, Alanine Aminotransferase (ALT/SGPT) 31, Alkaline Phosphatase 93, Total Bilirubin 0.4, Total Protein 6.8, Albumin 2.2L, C-Reactive Protein, Quantitative 20.50H, Albumin/Globulin Ratio 0.48L CBC/BMP Laboratory Tests 12/06/16 04:48 Red Blood Count 4.59, Mean Corpuscular Volume 84.7, Mean Corpuscular Hemoglobin 28.7, Mean Corpuscular Hemoglobin Concent 33.9, Red Cell Distribution Width 15.9 H, Neutrophils (%) (Auto) 75.9 H, Lymphocytes (%) (Auto) 9.8 L, Monocytes ( %) (Auto) 8.4 H, Eosinophils (%) (Auto) 1.9, Basophils (%) (Auto) 0.3, Neutrophils # (Auto) 8.1 H, Lymphocytes # (Auto) 1.5, Monocytes # (Auto) 0.9 H, Eosinophils # (Auto) 0.2, Basophils # (Auto) 0.0, Calcium Level 8.7, Aspartate Amino Transf (AST/SGOT) 16, Alanine Aminotransferase (ALT/SGPT) 31, Alkaline Phosphatase 93, Total Bilirubin 0.4, Total Protein 6.8, Albumin 2.2 L Microbiology Microbiology 12/03/16 Blood Culture - Preliminary, Resulted No Growth after 48 hours. All Specime... 12/03/16 Blood Culture - Preliminary, Resulted No Growth after 48 hours. All Specime... 12/02/16 Blood Culture - Preliminary, Resulted No Growth after 72 hours. All specime... 12/02/16 Blood Culture - Final, Complete Pseudomonas Aeruginosa 12/03/16 MRSA Screen - Final, Complete 12/02/16 Urine Culture - Final, Complete Pseudomonas Aeruginosa Enterococcus Faecalis FOSTER ANDREWS MD December 06, 2016 11:21
[2016-12-06 12:00] VITALS: BP 117/53
[2016-12-06 15:35] VITALS: BP 121/70
[2016-12-06] MEDS: PIPERACILLIN/TAZOBACTAM SOD 3.375 GM in D5W MINI-BAG PLUS 50 ML IV SCH (18:25)
[2016-12-06 22:00] VITALS: BP 124/68
--- NOTE | 2016-12-07 00:02 | CR ---
DATE OF CONSULTATION: 12/06/2016 Asked to consult by hospitalist for evaluation of persistent of fever in a patient with right-sided pyelonephritis from Pseudomonas with secondary bacteremia. HISTORY OF PRESENT ILLNESS: Luis Eduardo is a pleasant 30-year-old gentleman with a history of spina bifida and paraplegia, is wheelchair dependent, recurrent urinary tract infection and history of pyelonephritis. On November 15, the patient was at [facility] for nephrolithiasis, a large kidney stone measuring about 1.4 cm which was very painful that required stone extraction, that was done by Dr. Eli. Culture was positive for Pseudomonas resistant to quinolone and therefore the patient had a percutaneous indwelling central catheter (PICC) line placed and was discharged home on IV meropenem. He is not 100% sure that this is the name of the antibiotic but he took from November 17 to November 24. The PICC line was removed on November 24. The patient was feeling great until the day before admission when he started having fevers up to 102.5, shaking chills, night sweats. He was having severe right-sided flank pain. The patient self catheterizes himself about five to six times a day and uses a new catheter every time. He has persistent severe back pain in spite of being on meropenem for the past four days. He has a stent that was placed in the right kidney after the procedure for removal of the stone. He is sexually active. He states that he is frustrated because he is not feeling better. He thinks the stent needs to be removed. ALLERGIES: LATEX, MEPERIDINE AND VANCOMYCIN causing Red Man syndrome. PAST MEDICAL HISTORY: Spina bifida, hydrocephalus status post ventriculoperitoneal (PHYSICIAN SCIENTIST) shunt which was revised twice, pyelonephritis in 2012 which also due to Pseudomonas required IV antibiotic which he took through a group home because he could not do it at home, nephrolithiasis, chronic dislocated hip, dysplasia with joint pains, anxiety, closed head injury, neurogenic bladder requiring catheterization. ureteral obstruction. PAST SURGICAL HISTORY: Ventriculoperitoneal (PHYSICIAN SCIENTIST) shunt, right nephrostomy tube in 2013, ureteral reimplantation, ureteral stent on the right side with extraction of the stone November 15, [address] Eli, bilateral hip surgery, missing teeth extracted, spina bifida surgery at SOCIAL HISTORY: He lives with his girlfriend and the son. He drinks occasionally. He smokes cigarettes, about a half a pack a day since the age of 14. He smokes marijuana once or twice a month. FAMILY HISTORY: Mother of a boating accident 2007. The father is an alcoholic and he is not in touch. REVIEW OF SYSTEMS: The patient complains of fever, chills, night sweats. Some nausea but no vomiting. Appetite is good. He has severe right-sided flank pain. The patient is a paraplegic. He is wheelchair dependent. He denies any cough, shortness of breath, abdominal pain. PHYSICAL EXAMINATION: On physical exam, he is a healthy looking gentleman in no acute distress. Temperature is 99.4 currently, but T-max was 101.9 at 04:00 a.m., pulse 80, respirations 18, blood pressure 121/70, Oxygen saturation 98% on room air. Heart: Normal S1-S2 with no murmurs, rubs or gallops. Lungs are clear. Diminished at the bases. Abdomen is soft, tender in the right upper quadrant. Right costovertebral angle (CVA) tenderness. Back: Lower lumbar scar well healed from spina bifida surgery. Lower extremities: Wasting with muscle atrophy. Both ankles externally rotated with very small feet. No ulcerations. White count is 10.7 down from 26.9 on admission, hemoglobin 13.2, hematocrit 38.9, platelets 304. Erythrocyte sedimentation rate 71. Sodium 136, potassium 4.5, chloride 101, bicarb 27, BUN 12, creatinine 0.64, glucose 94, calcium 8.7, AST 16, ALT 31, alkaline phosphatase 93, CRP 20.5 down from 27. Urine culture was positive for Pseudomonas and enterococcus faecalis both more than 100,000, blood cultures on 12/02 was one out of two positive for Pseudomonas aeruginosa with resistance to cefepime and levofloxacin, sensitive to Zosyn and meropenem. CT of the abdomen on 12/02 shows right ureteral stent in satisfactory position with edematous enlargement of the right kidney and perinephric stranding, hydroureteronephrosis, intrarenal calculi, previously noted large right intrarenal calculus has been extracted; it was measuring 18 mm. The left kidney is stable with mild cortical scarring and chronic hydro-ureteral nephrosis without nephrolithiasis. Mild prominent periaortic and pericaval lymph nodes about 13 mm and findings suggest related spina bifida. IMPRESSION: This is a 30-year-old gentleman with a history of kidney stone that was recently extracted on 11/[address] Eli with the previous urine culture positive for Pseudomonas treated with IV meropenem as an outpatient until November 24. The patient was off antibiotic for about a week when he developed severe acute flank pain, fever, chills, sepsis from urinary origin and urine culture, as well as blood culture were positive for Pseudomonas.Urine culture also had E.fecalis MEDICATIONS: Ciprofloxacin was given on 12/05 and 12/06, total of four doses, meropenem 1 gram IV q.8 h since 12/02 a total of five days, Percocet one tablet by mouth every 4 hours as needed , penicillin G 5,000,000 units every 4 hours from 12/02-12/05, then switched to Zosyn 3.375 grams IV every 6 hours. PLAN: Repeat renal ultrasound in the morning to make sure that the hydronephrosis has improved and not worsened and that the patient did not develop pyonephrosis with an abscess that needs to be drained. If hydronephrosis has not improved, then the stent may need to be exchanged to help decompress the kidney. The patient continues with severe back pain and possibly the reason for the fever is that it is not draining properly. He currently has gray catheter. The urine seems to be clearing up. Continue Zosyn 3.375 grams every 6 hours. SHOLA GROSSMAN DC meropenem Will obtain renal ultrasound tomorrow. Will obtain his records from [place] and discuss his case with a urologist. ALEJO
[2016-12-07] MEDS: PIPERACILLIN/TAZOBACTAM SOD 3.375 GM in D5W MINI-BAG PLUS 50 ML IV SCH ×5 (00:11→23:11)
[2016-12-07] MEDS: oxyCODONE 5MG TAB PO PRN ×4 (00:12→18:05)
[2016-12-07] MEDS: diphenhydrAMINE 25 MG CAP PO PRN (00:12)
[2016-12-07] MEDS ORDERED: MORPHINE 2 MG/ML 1ML SYRINGE IV ONE (02:00)
[2016-12-07 06:00] VITALS: BP 110/56
[2016-12-07 07:29] LABS: BASO % 0.4 % (0.0-1.0); EOS # 0.2 K/mm3 (0.0-0.50); EOS % 2.3 % (0.0-3.0); LARGE UNSTAINED CELL # 0.5 K/mm3 (0.0-0.4); LARGE UNSTAINED CELL % 4.1 % (0.0-4.0); LYMPH # 1.7 K/mm3 (1.5-6.5); LYMPH % 11.4 % (24.0-44.0); MEAN CORPUSCULAR HEMOGLOBIN 28.2 pg (27.0-33.0); MEAN CORPUSCULAR HGB CONC 32.9 g/dl (32.0-36.5); MEAN CORPUSCULAR VOLUME 85.6 fl (80.0-96.0); MONO # 0.9 K/mm3 (0.0-0.8); MONO % 8.4 % (0.0-5.0); NEUTROPHILS % 73.4 % (36.0-66.0); PLATELET COUNT, AUTOMATED 354 k/mm3 (150-450); RED CELL DISTRIBUTION WIDTH 15.9 % (11.5-14.5); WHITE BLOOD COUNT 10.9 K/mm3 (4.0-10.0)
[2016-12-07 07:49] LABS: ALBUMIN 2.3 GM/DL (3.2-5.2); ALBUMIN/GLOBULIN RATIO 0.49 (1.00-1.93); ALKALINE PHOSPHATASE 85 U/L (45-117); ALT/SGPT 38 U/L (12-78); ANION GAP 8 MEQ/L (8-16); AST/SGOT 26 U/L (15-37); BILIRUBIN,TOTAL 0.5 MG/DL (0.2-1.0); BLOOD UREA NITROGEN 12 MG/DL (7-18); CALCIUM LEVEL 8.9 MG/DL (8.5-10.1); CARBON DIOXIDE LEVEL 29 MEQ/L (21-32); CHLORIDE LEVEL 100 MEQ/L (98-107); GLOMERULAR FILTRATION RATE > 60.0 (>60); GLUCOSE, FASTING 103 MG/DL (70-105); SODIUM LEVEL 137 MEQ/L (136-145)
[2016-12-07] MEDS: DOCUSATE SODIUM 100 MG CAP PO SCH ×3 (09:34→21:39)
[2016-12-07] MEDS: ENOXAPARIN 40 MG/0.4 ML SYRINGE (J1650) SC SCH (09:39)
[2016-12-07] MEDS: oxyBUTYnin 5 MG TAB PO SCH (09:44)
[2016-12-07] MEDS: ONDANSETRON 4MG/2ML VIAL (J2405) IV PRN (09:45)
[2016-12-07] MEDS: KCL 40MEQ in NS 1000ML 1,000 ML IV SCH (12:21)
[2016-12-07 14:00] VITALS: BP 122/64
[2016-12-07] MEDS: MORPHINE 2 MG/ML 1ML SYRINGE IV PRN ×3 (14:27→22:55)
--- NOTE | 2016-12-07 15:20 | REP ---
Clinical: Follow up hydronephrosis with persistent fever. Technique: Real time mahoney scale ultrasound examination using curved array transducer. Findings: The right kidney is enlarged and demonstrates mild hydroureteronephrosis with stent in satisfactory position. Right kidney measures 13.0 x 7.1 x 7.2 cm without nephrolithiasis or mass lesion. Comparison with prior CT suggesting the possibility of right-sided pyelonephritis. The left kidney demonstrates severe cortical thinning and grade 4 hydroureteronephrosis which appears chronic when compared and correlated with prior CT. Left kidney measures 10.6 x 3.9 x 4.9 cm without nephrolithiasis or mass lesion and no obvious perinephric stranding. Meeks catheter identified in collapsed bladder. Impression: 1. Chronic changes to the left kidney including cortical thinning and chronic hydroureteronephrosis without nephrolithiasis, mass lesion or perinephric stranding. 2. Asymmetric enlargement to the right kidney with mild grade 2 hydroureternephrosis and stent in satisfactory position. No obvious nephrolithiasis, mass lesion or definite perinephric stranding. Signed by Josias Luciano MD 12/07/2016 03:12 P
--- NOTE | 2016-12-07 16:21 | IPNPDOC ---
Subjective Date Seen The patient was seen on 12/07/16. Subjective Chief Complaint/HPI The patient is a 30-year-old male admitted with a reason for visit of Obstructive Uropathy. Events since last encounter Has ongoing right flank pain, unrelieved with home dosing of opioids. was on flomax previously- tolerating diet- would be willing to followup with Dr. Llanes Constitutional: Denies: Chills Pulmonary: Denies: Dyspnea, Cough Cardiovascular: Denies: Chest Pain, Palpitations Gastrointestinal: Reports: Abdominal Pain, Denies: Nausea, Vomiting Objective Physical Examination General Exam: Positive: No Acute Distress Eye Exam: Negative: Sclera icteric ENT Exam: Positive: Atraumatic Neck Exam: Positive: Supple Chest Exam: Positive: Clear to auscultation, Normal air movement Heart Exam: Positive: Rate Normal, Regular Rhythm Telemetry: Positive: No significant arrhythmia, Sinus, Bradycardia Abdomen Exam: Positive: Normal bowel sounds, Soft, Tenderness (right cva tenderness.) Extremity Exam: Negative: Edema Psych Exam: Positive: Oriented x 3 Assessment /Plan Problems (1) Bacteremia due to Pseudomonas Status: Acute Response to Treatment: Improving Discussed With: Patient Problem Specific Plan: Monitor Clinically, Repeat Labs Problem Text: I discussed with Dr. Ackerman U/Zeke ordered continue on zosyn as sole antibiotic (2) Pyelonephritis Status: Acute Problem Text: ucx consistent with previous cultures - pseudo + enterococci: Fever curve improving leukocytosis improving. Recent right ureteral stent placement. Dr. Mckeon D/W Dr. Perry's service ([facility]), no need for transfer. Patient missed first follow up after stent placement, was scheduled for follow up 12/06. Dr. Mckeon discussed with urology dr. zeng - continue antibiotics. Follow as per urology. Infection related to chronic self catheterization Sepsis/fever/bacteremia present on admission (3) Neurogenic bladder Status: Chronic Problem Text: Patient self catheterizes. Nursing to monitor to ensure adequate technique. (4) Obstructive uropathy Status: Acute Problem Text: D/w urology in house as well as dr. perry's service who placed stent - no surgical intervention, assistance appreciated. (5) Hydrocephalus Status: Chronic Problem Text: s/p vp software shunt as per medical records (6) Spina bifida Status: Chronic (7) Nicotine abuse Plan/VTE VTE Prophylaxis Ordered?: Yes (lovenox) Plan/Urinary Catheter Reason for insertion/continuin: Acute obstruct/retention (pt with neurogenic bladder and mild hydro and pylonephritis. need to prevent reflux ) Plan IVF: Continue Diet: Continue Current Activity: Continue Current Medications: Taper Antibiotics Diagnostics: Repeat Labs in AM, Obtain Cultures VS, I&O, 24H, Freddie Vital Signs/I&O Vital Signs Date Time Temp Pulse Resp B/P (MAP) Pulse Ox O2 Delivery O2 Flow Rate FiO2 12/07/16 14:37 16 12/07/16 06:00 96.5 69 110/56 (74) 94 Room Air I&O- Last 24 Hours up to 6 AM 12/07/16 06:00 Intake Total 2265 ml Output Total 5625 ml Balance -3360 ml Laboratory Data 24H LABS Laboratory Tests 2 12/07/16 07:02: White Blood Count 10.9H, Red Blood Count 4.43, Hemoglobin 12.5L, Hematocrit 38.0L, Mean Corpuscular Volume 85.6, Mean Corpuscular Hemoglobin 28.2, Mean Corpuscular Hemoglobin Concent 32.9, Red Cell Distribution Width 15.9H, Platelet Count 354, Neutrophils (%) (Auto) 73.4H, Lymphocytes (%) (Auto) 11.4L, Monocytes (%) (Auto) 8.4H, Eosinophils (%) (Auto) 2.3, Basophils (%) (Auto) 0.4 , Neutrophils # (Auto) 8.0H, Lymphocytes # (Auto) 1.7, Monocytes # (Auto) 0.9H, Eosinophils # (Auto) 0.2, Basophils # (Auto) 0.0, Large Unclassified Cells % 4.1H, Large Unclassified Cells # 0.5H, Anion Gap 8, Glomerular Filtration Rate > 60.0, Blood Urea Nitrogen 12, Creatinine 0.70, Sodium Level 137, Potassium Level 5.0, Chloride Level 100, Carbon Dioxide Level 29, Calcium Level 8.9, Aspartate Amino Transf (AST/SGOT) 26, Alanine Aminotransferase (ALT/SGPT) 38, Alkaline Phosphatase 85, Total Bilirubin 0.5, Total Protein 7.0, Albumin 2.3L, Albumin/Globulin Ratio 0.49L CBC/BMP Laboratory Tests 12/07/16 07:02 Red Blood Count 4.43, Mean Corpuscular Volume 85.6, Mean Corpuscular Hemoglobin 28.2, Mean Corpuscular Hemoglobin Concent 32.9, Red Cell Distribution Width 15.9 H, Neutrophils (%) (Auto) 73.4 H, Lymphocytes (%) (Auto) 11.4 L, Monocytes (%) (Auto) 8.4 H, Eosinophils (%) (Auto) 2.3, Basophils (%) (Auto) 0.4, Neutrophils # (Auto) 8.0 H, Lymphocytes # (Auto) 1.7, Monocytes # (Auto) 0.9 H, Eosinophils # (Auto) 0.2, Basophils # (Auto) 0.0, Calcium Level 8.9, Aspartate Amino Transf (AST/SGOT) 26, Alanine Aminotransferase (ALT/SGPT) 38, Alkaline Phosphatase 85, Total Bilirubin 0.5, Total Protein 7.0, Albumin 2.3 L Microbiology Microbiology 12/03/16 Blood Culture - Preliminary, Resulted No Growth after 72 hours. All specime... 12/03/16 Blood Culture - Preliminary, Resulted No Growth after 72 hours. All specime... 12/02/16 Blood Culture - Final, Complete NO GROWTH AFTER 5 DAYS 12/02/16 Blood Culture - Final, Complete Pseudomonas Aeruginosa 12/03/16 MRSA Screen - Final, Complete 12/02/16 Urine Culture - Final, Complete Pseudomonas Aeruginosa Enterococcus Faecalis MEDHAT HART MD December 07, 2016 16:21
[2016-12-07 22:00] VITALS: BP 142/66
[2016-12-08] MEDS: oxyCODONE 5MG TAB PO PRN ×4 (00:12→18:41)
[2016-12-08] MEDS: diphenhydrAMINE 25 MG CAP PO PRN (00:12)
[2016-12-08] MEDS: MORPHINE 2 MG/ML 1ML SYRINGE IV PRN ×4 (04:58→20:01)
[2016-12-08] MEDS: PIPERACILLIN/TAZOBACTAM SOD 3.375 GM in D5W MINI-BAG PLUS 50 ML IV SCH ×3 (05:01→18:40)
[2016-12-08 06:00] VITALS: BP 108/52
[2016-12-08 06:51] LABS: BASO # 0.1 K/mm3 (0.0-0.2); BASO % 0.7 % (0.0-1.0); EOS # 0.4 K/mm3 (0.0-0.50); EOS % 4.2 % (0.0-3.0); LARGE UNSTAINED CELL # 0.4 K/mm3 (0.0-0.4); LARGE UNSTAINED CELL % 4.4 % (0.0-4.0); LYMPH # 1.3 K/mm3 (1.5-6.5); LYMPH % 14.5 % (24.0-44.0); MEAN CORPUSCULAR HEMOGLOBIN 29.3 pg (27.0-33.0); MEAN CORPUSCULAR HGB CONC 34.4 g/dl (32.0-36.5); MEAN CORPUSCULAR VOLUME 85.1 fl (80.0-96.0); MONO # 0.6 K/mm3 (0.0-0.8); MONO % 6.9 % (0.0-5.0); NEUTROPHILS # 6.3 K/mm3 (1.8-7.7); NEUTROPHILS % 69.3 % (36.0-66.0); PLATELET COUNT, AUTOMATED 450 k/mm3 (150-450); RED CELL DISTRIBUTION WIDTH 15.4 % (11.5-14.5); WHITE BLOOD COUNT 9.1 K/mm3 (4.0-10.0)
[2016-12-08 07:35] LABS: ALBUMIN 2.5 GM/DL (3.2-5.2); ALBUMIN/GLOBULIN RATIO 0.53 (1.00-1.93); ALKALINE PHOSPHATASE 84 U/L (45-117); ALT/SGPT 52 U/L (12-78); ANION GAP 7 MEQ/L (8-16); AST/SGOT 29 U/L (15-37); BILIRUBIN,TOTAL 0.6 MG/DL (0.2-1.0); BLOOD UREA NITROGEN 14 MG/DL (7-18); CALCIUM LEVEL 9.3 MG/DL (8.5-10.1); CARBON DIOXIDE LEVEL 29 MEQ/L (21-32); CHLORIDE LEVEL 100 MEQ/L (98-107); CREATININE FOR GFR 0.66 MG/DL (0.70-1.30); GLOMERULAR FILTRATION RATE > 60.0 (>60); GLUCOSE, FASTING 93 MG/DL (70-105); SODIUM LEVEL 136 MEQ/L (136-145); TOTAL PROTEIN 7.2 GM/DL (6.4-8.2)
[2016-12-08] MEDS: oxyBUTYnin 5 MG TAB PO SCH (09:10)
[2016-12-08] MEDS: DOCUSATE SODIUM 100 MG CAP PO SCH ×2 (09:10→20:00)
[2016-12-08] MEDS: ENOXAPARIN 40 MG/0.4 ML SYRINGE (J1650) SC SCH (09:11)
[2016-12-08] MEDS: TAMSULOSIN 0.4 MG CAP PO SCH ×2 (12:27→20:00)
[2016-12-08 14:00] VITALS: BP 111/58
--- NOTE | 2016-12-08 16:15 | IPNPDOC ---
Subjective Date Seen The patient was seen on 12/08/16. Subjective Chief Complaint/HPI The patient is a 30-year-old male admitted with a reason for visit of Obstructive Uropathy. Events since last encounter Nervous about dc plan, still has pain in right flank, tolerating diet, wishes to stay in hospital to complete course of antibiotics Constitutional: Denies: Chills, Fever Pulmonary: Denies: Dyspnea, Cough Cardiovascular: Denies: Chest Pain, Palpitations Gastrointestinal: Reports: Abdominal Pain, Denies: Nausea, Vomiting Objective Physical Examination General Exam: Positive: Alert, Cooperative, No Acute Distress Eye Exam: Negative: Sclera icteric ENT Exam: Positive: Atraumatic Neck Exam: Positive: Supple Chest Exam: Positive: Clear to auscultation, Normal air movement Heart Exam: Positive: Rate Normal, Regular Rhythm Telemetry: Positive: No significant arrhythmia, Sinus, Bradycardia Abdomen Exam: Positive: Normal bowel sounds, Soft, Tenderness Extremity Exam: Negative: Edema Psych Exam: Positive: Oriented x 3 Assessment /Plan Problems (1) Bacteremia due to Pseudomonas Status: Acute Response to Treatment: Improving Discussed With: Patient Problem Specific Plan: Monitor Clinically, Repeat Labs Problem Text: I discussed with Dr. Ackerman in person U/S ordered continue on zosyn as sole antibiotic possibility of home d/c with picc- which he is uncomfortable with, or daily presentation to transfusion center- (he is unsure whether he would be able to afford the trip) may need placement for short term therapy at [facility] (2) Pyelonephritis Status: Acute Problem Text: ucx consistent with previous cultures - pseudo + enterococci: Fever curve improving leukocytosis improving. Recent right ureteral stent placement. Dr. Mckeon D/W Dr. Perry's service ([facility]), no need for transfer. Patient missed first follow up after stent placement, was scheduled for follow up 12/06. Dr. Mckeon discussed with urology dr. mobley - continue antibiotics. I d/w Dr Mobley today- recommends d/c with gray catheter Infection related to chronic self catheterization Sepsis/fever/bacteremia present on admission (3) Neurogenic bladder Status: Chronic Problem Text: Patient self catheterizes. at baseline but will go home with catheter per urology instructions (4) Obstructive uropathy Status: Acute Problem Text: D/w urology in house as well as dr. perry's service who placed stent - no surgical intervention, assistance appreciated. (5) Hydrocephalus Status: Chronic Problem Text: s/p sv[employer] shunt as per medical records (6) Spina bifida Status: Chronic (7) Nicotine abuse Plan/VTE VTE Prophylaxis Ordered?: Yes (lovenox) Plan/Urinary Catheter Reason for insertion/continuin: Acute obstruct/retention (pt with neurogenic bladder and mild hydro and pylonephritis. need to prevent reflux ) Plan IVF: Continue Diet: Continue Current Activity: Continue Current Medications: Taper Antibiotics Diagnostics: Repeat Labs in AM, Obtain Cultures VS, I&O, 24H, Fishbone Vital Signs/I&O Vital Signs Date Time Temp Pulse Resp B/P (MAP) Pulse Ox O2 Delivery O2 Flow Rate FiO2 12/08/16 15:00 16 12/08/16 14:00 98.6 92 111/58 (75) 96 Room Air I&O- Last 24 Hours up to 6 AM 12/08/16 06:00 Intake Total 1865 ml Output Total 3700 ml Balance -1835 ml Laboratory Data 24H LABS Laboratory Tests 2 12/08/16 06:37: White Blood Count 9.1, Red Blood Count 4.62, Hemoglobin 13.5L, Hematocrit 39.3L , Mean Corpuscular Volume 85.1, Mean Corpuscular Hemoglobin 29.3, Mean Corpuscular Hemoglobin Concent 34.4, Red Cell Distribution Width 15.4H, Platelet Count 450, Neutrophils (%) (Auto) 69.3H, Lymphocytes (%) (Auto) 14.5L, Monocytes (%) (Auto) 6.9H, Eosinophils (%) (Auto) 4.2H, Basophils (%) (Auto) 0.7 , Neutrophils # (Auto) 6.3, Lymphocytes # (Auto) 1.3L, Monocytes # (Auto) 0.6, Eosinophils # (Auto) 0.4, Basophils # (Auto) 0.1, Large Unclassified Cells % 4.4H, Large Unclassified Cells # 0.4, Anion Gap 7L, Glomerular Filtration Rate > 60.0, Blood Urea Nitrogen 14, Creatinine 0.66L, Sodium Level 136, Potassium Level 4.0, Chloride Level 100, Carbon Dioxide Level 29, Calcium Level 9.3, Aspartate Amino Transf (AST/SGOT) 29, Alanine Aminotransferase (ALT/SGPT) 52, Alkaline Phosphatase 84, Total Bilirubin 0.6, Total Protein 7.2, Albumin 2.5L, Albumin/Globulin Ratio 0.53L CBC/BMP Laboratory Tests 12/08/16 06:37 Red Blood Count 4.62, Mean Corpuscular Volume 85.1, Mean Corpuscular Hemoglobin 29.3, Mean Corpuscular Hemoglobin Concent 34.4, Red Cell Distribution Width 15.4 H, Neutrophils (%) (Auto) 69.3 H, Lymphocytes (%) (Auto) 14.5 L, Monocytes (%) (Auto) 6.9 H, Eosinophils (%) (Auto) 4.2 H, Basophils (%) (Auto) 0.7, Neutrophils # (Auto) 6.3, Lymphocytes # (Auto) 1.3 L, Monocytes # (Auto) 0.6, Eosinophils # (Auto) 0.4, Basophils # (Auto) 0.1, Calcium Level 9.3, Aspartate Amino Transf (AST/SGOT) 29, Alanine Aminotransferase (ALT/SGPT) 52, Alkaline Phosphatase 84, Total Bilirubin 0.6, Total Protein 7.2, Albumin 2.5 L Microbiology Microbiology 12/03/16 Blood Culture - Final, Complete NO GROWTH AFTER 5 DAYS 12/03/16 Blood Culture - Final, Complete NO GROWTH AFTER 5 DAYS 12/02/16 Blood Culture - Final, Complete NO GROWTH AFTER 5 DAYS 12/02/16 Blood Culture - Final, Complete Pseudomonas Aeruginosa 12/03/16 MRSA Screen - Final, Complete 12/02/16 Urine Culture - Final, Complete Pseudomonas Aeruginosa Enterococcus Faecalis MEDHAT HART MD December 08, 2016 16:15
[2016-12-08 22:00] VITALS: BP 144/76
[2016-12-09] MEDS: diphenhydrAMINE 25 MG CAP PO PRN ×2 (00:17→21:29)
[2016-12-09] MEDS: PIPERACILLIN/TAZOBACTAM SOD 3.375 GM in D5W MINI-BAG PLUS 50 ML IV SCH ×5 (00:18→23:34)
[2016-12-09] MEDS: MORPHINE 2 MG/ML 1ML SYRINGE IV PRN ×2 (00:18→08:54)
[2016-12-09] MEDS: oxyCODONE 5MG TAB PO PRN ×4 (04:11→21:29)
[2016-12-09 06:00] VITALS: BP 124/64
[2016-12-09 06:44] LABS: BASO # 0.1 K/mm3 (0.0-0.2); BASO % 0.8 % (0.0-1.0); EOS # 0.4 K/mm3 (0.0-0.50); EOS % 4.1 % (0.0-3.0); LARGE UNSTAINED CELL # 0.3 K/mm3 (0.0-0.4); LARGE UNSTAINED CELL % 2.9 % (0.0-4.0); LYMPH # 1.7 K/mm3 (1.5-6.5); MEAN CORPUSCULAR HEMOGLOBIN 28.5 pg (27.0-33.0); MEAN CORPUSCULAR HGB CONC 33.3 g/dl (32.0-36.5); MEAN CORPUSCULAR VOLUME 85.6 fl (80.0-96.0); MONO # 0.6 K/mm3 (0.0-0.8); MONO % 6.1 % (0.0-5.0); NEUTROPHILS # 7.7 K/mm3 (1.8-7.7); NEUTROPHILS % 73.1 % (36.0-66.0); PLATELET COUNT, AUTOMATED 517 k/mm3 (150-450); RED CELL DISTRIBUTION WIDTH 15.5 % (11.5-14.5); WHITE BLOOD COUNT 10.6 K/mm3 (4.0-10.0)
[2016-12-09 06:59] LABS: ALBUMIN 2.4 GM/DL (3.2-5.2); ALKALINE PHOSPHATASE 78 U/L (45-117); ALT/SGPT 63 U/L (12-78); ANION GAP 6 MEQ/L (8-16); AST/SGOT 30 U/L (15-37); BILIRUBIN,TOTAL 0.5 MG/DL (0.2-1.0); BLOOD UREA NITROGEN 17 MG/DL (7-18); CARBON DIOXIDE LEVEL 29 MEQ/L (21-32); CHLORIDE LEVEL 101 MEQ/L (98-107); CREATININE FOR GFR 0.63 MG/DL (0.70-1.30); GLOMERULAR FILTRATION RATE > 60.0 (>60); GLUCOSE, FASTING 93 MG/DL (70-105); SODIUM LEVEL 136 MEQ/L (136-145); TOTAL PROTEIN 7.2 GM/DL (6.4-8.2)
[2016-12-09] MEDS: oxyBUTYnin 5 MG TAB PO SCH (08:53)
[2016-12-09] MEDS: ENOXAPARIN 40 MG/0.4 ML SYRINGE (J1650) SC SCH (08:53)
[2016-12-09] MEDS: DOCUSATE SODIUM 100 MG CAP PO SCH ×2 (08:53→20:12)
[2016-12-09] MEDS: TAMSULOSIN 0.4 MG CAP PO SCH ×2 (08:53→20:12)
[2016-12-09 14:00] VITALS: BP 104/57
--- NOTE | 2016-12-09 17:04 | IPNPDOC ---
Subjective Date Seen The patient was seen on 12/09/16. Subjective Chief Complaint/HPI The patient is a 30-year-old male admitted with a reason for visit of Obstructive Uropathy. Events since last encounter Still has pain, nervous about going home, tolerating diet, wants to spend more time in wheelchair today, will discuss discharge plan with girlfriend Pulmonary: Denies: Dyspnea, Cough Cardiovascular: Denies: Chest Pain, Palpitations Gastrointestinal: Reports: Abdominal Pain, Denies: Nausea, Vomiting Objective Physical Examination General Exam: Positive: Alert, No Acute Distress Eye Exam: Negative: Sclera icteric ENT Exam: Positive: Atraumatic Neck Exam: Positive: Supple Chest Exam: Positive: Clear to auscultation, Normal air movement Heart Exam: Positive: Rate Normal, Regular Rhythm, Normal S1, Normal S2 Telemetry: Positive: No significant arrhythmia, Sinus, Bradycardia Abdomen Exam: Positive: Normal bowel sounds, Soft, Tenderness Extremity Exam: Negative: Edema Psych Exam: Positive: Oriented x 3 Assessment /Plan Problems (1) Bacteremia due to Pseudomonas Status: Acute Response to Treatment: Improving Discussed With: Patient Problem Specific Plan: Monitor Clinically, Repeat Labs Problem Text: I discussed with Dr. Ackerman in person U/S ordered continue on zosyn as sole antibiotic possibility of home d/c with picc- which he is uncomfortable with, or daily presentation to transfusion center- (he is unsure whether he would be able to afford the trip) may need placement for short term therapy at [facility] (2) Pyelonephritis Status: Acute Problem Text: ucx consistent with previous cultures - pseudo + enterococci: Fever curve improving leukocytosis improving. Recent right ureteral stent placement. Dr. Mckeon D/W Dr. Perry's service ([facility]), no need for transfer. Patient missed first follow up after stent placement, was scheduled for follow up 12/06. Dr. Mckeon discussed with urology dr. mobley - continue antibiotics. I d/w Dr Mobley today- recommends d/c with gray catheter Infection related to chronic self catheterization Sepsis/fever/bacteremia present on admission Patient requires 14 days iv antibiotics- working out specifics of home plan or [facility] for continued iv antibiotics (3) Neurogenic bladder Status: Chronic Problem Text: Patient self catheterizes. at baseline but will go home with catheter per urology instructions I discussed with Dr. Mobley in person (4) Obstructive uropathy Status: Acute Problem Text: D/w urology in house as well as dr. perry's service who placed stent - no surgical intervention, assistance appreciated. (5) Hydrocephalus Status: Chronic Problem Text: s/p vp [employer] shunt as per medical records (6) Spina bifida Status: Chronic (7) Nicotine abuse Plan/VTE VTE Prophylaxis Ordered?: Yes (lovenox) Plan/Urinary Catheter Reason for insertion/continuin: Acute obstruct/retention (pt with neurogenic bladder and mild hydro and pylonephritis. need to prevent reflux ) Plan IVF: Continue Diet: Continue Current Activity: Continue Current Medications: Taper Antibiotics Diagnostics: Repeat Labs in AM, Obtain Cultures VS, I&O, 24H, Fishbone Vital Signs/I&O Vital Signs Date Time Temp Pulse Resp B/P (MAP) Pulse Ox O2 Delivery O2 Flow Rate FiO2 12/09/16 17:00 17 12/09/16 14:00 98.1 87 104/57 (73) 98 Room Air I&O- Last 24 Hours up to 6 AM 12/09/16 06:00 Intake Total 2360 ml Output Total 2725 ml Balance -365 ml Laboratory Data 24H LABS Laboratory Tests 2 12/09/16 06:34: White Blood Count 10.6H, Red Blood Count 4.54, Hemoglobin 12.9L, Hematocrit 38.8L, Mean Corpuscular Volume 85.6, Mean Corpuscular Hemoglobin 28.5, Mean Corpuscular Hemoglobin Concent 33.3, Red Cell Distribution Width 15.5H, Platelet Count 517H, Neutrophils (%) (Auto) 73.1H, Lymphocytes (%) (Auto) 13.0L , Monocytes (%) (Auto) 6.1H, Eosinophils (%) (Auto) 4.1H, Basophils (%) (Auto) 0.8, Neutrophils # (Auto) 7.7, Lymphocytes # (Auto) 1.7, Monocytes # (Auto) 0.6 , Eosinophils # (Auto) 0.4, Basophils # (Auto) 0.1, Large Unclassified Cells % 2.9, Large Unclassified Cells # 0.3, Anion Gap 6L, Glomerular Filtration Rate > 60.0, Blood Urea Nitrogen 17, Creatinine 0.63L, Sodium Level 136, Potassium Level 4.0, Chloride Level 101, Carbon Dioxide Level 29, Calcium Level 9.0, Aspartate Amino Transf (AST/SGOT) 30, Alanine Aminotransferase (ALT/SGPT) 63, Alkaline Phosphatase 78, Total Bilirubin 0.5, Total Protein 7.2, Albumin 2.4L, Albumin/Globulin Ratio 0.50L CBC/BMP Laboratory Tests 12/09/16 06:34 Red Blood Count 4.54, Mean Corpuscular Volume 85.6, Mean Corpuscular Hemoglobin 28.5, Mean Corpuscular Hemoglobin Concent 33.3, Red Cell Distribution Width 15.5 H, Neutrophils (%) (Auto) 73.1 H, Lymphocytes (%) (Auto) 13.0 L, Monocytes (%) (Auto) 6.1 H, Eosinophils (%) (Auto) 4.1 H, Basophils (%) (Auto) 0.8, Neutrophils # (Auto) 7.7, Lymphocytes # (Auto) 1.7, Monocytes # (Auto) 0.6, Eosinophils # (Auto) 0.4, Basophils # (Auto) 0.1, Calcium Level 9.0, Aspartate Amino Transf (AST/SGOT) 30, Alanine Aminotransferase (ALT/SGPT) 63, Alkaline Phosphatase 78, Total Bilirubin 0.5, Total Protein 7.2, Albumin 2.4 L Microbiology Microbiology 12/03/16 Blood Culture - Final, Complete NO GROWTH AFTER 5 DAYS 12/03/16 Blood Culture - Final, Complete NO GROWTH AFTER 5 DAYS 12/02/16 Blood Culture - Final, Complete NO GROWTH AFTER 5 DAYS 12/02/16 Blood Culture - Final, Complete Pseudomonas Aeruginosa 12/03/16 MRSA Screen - Final, Complete 12/02/16 Urine Culture - Final, Complete Pseudomonas Aeruginosa Enterococcus Faecalis MEDHAT HART MD December 09, 2016 17:04
--- NOTE | 2016-12-09 20:20 | IPN ---
DATE: 12/09/2016 Mr. Kelly seems to be doing better today. His pain is better controlled with increased narcotics. He has been afebrile for 48 hours. He still debating his plan of treatment. He seems like he is leaning towards going home with once a day IV infusion therapy with tobramycin through peripheral IV. His line pain has improved. On physical exam T-max is 99. Heart: Normal S1-S2. No murmurs. Lungs are clear. Abdomen: Mildly tender in the right upper quadrant. Extremities: No edema. The patient is paralyzed. Temperature is 98.1, pulse 87, respirations 18, blood pressure 104/67, O2 sat 98% on room air. IMPRESSION: 1. Pseudomonas pyelonephritis of the right kidney with bacteremia, on IV Zosyn dong much better. The patient could go home tomorrow with tobramycin 300 mg IV every 24 hours for 10 more days along with amoxicillin 500 mg by mouth three times a day to cover the Enterococcus faecalis that was in the urine, but not on the blood culture. 2. Spina bifida. The patient is wheelchair dependent. PLAN: The case has been discussed with Dr. Godinez, with his girlfriend and himself and tomorrow he will decide whether he wants to finish his 10 days antibiotic at [facility] setting or alternate level of care ([facility]) versus going home and to the infusion unit every day with a medicaid driver recruiter.
[2016-12-09 22:00] VITALS: BP 134/74
[2016-12-10] MEDS: oxyCODONE 5MG TAB PO PRN ×5 (02:15→21:25)
[2016-12-10] MEDS: PIPERACILLIN/TAZOBACTAM SOD 3.375 GM in D5W MINI-BAG PLUS 50 ML IV SCH (05:23)
[2016-12-10 06:00] VITALS: BP 114/54
[2016-12-10] MEDS: TAMSULOSIN 0.4 MG CAP PO SCH ×2 (08:07→21:24)
[2016-12-10] MEDS: oxyBUTYnin 5 MG TAB PO SCH (08:07)
[2016-12-10] MEDS: DOCUSATE SODIUM 100 MG CAP PO SCH ×2 (08:07→21:24)
[2016-12-10] MEDS: ENOXAPARIN 40 MG/0.4 ML SYRINGE (J1650) SC SCH (08:08)
[2016-12-10] MEDS: TOBRAMYCIN SULF IV SCH (08:08)
[2016-12-10] MEDS: D5W IV SCH (08:08)
--- NOTE | 2016-12-10 11:33 | IPN ---
DATE: 12/10/2016 Luis Eduardo seems to be doing better. Fevers have resolved as symptoms. Him and his girlfriend have been fighting. His does not trust her with his antibiotics at this time because of his problems with his girlfriend. His last fever was on 12/06/2016. LABS: White count is 10.6, hemoglobin 12.9, hematocrit 38.8, platelets 517, 72% neutrophils, 13% lymphocytes, 6% monocytes. Sodium 136, potassium 4 chloride 101, bicarbonate 29, BUN 17, creatinine 0.5, calcium 9, bilirubin 0.5, AST 30, ALT 53, albumin 3 total protein 7.2. Microbiology: blood cultures positive for Pseudomonas. Urine culture had Enterococcus faecalis as well sensitive to ampicillin. IMPRESSION: Pseudomonas and Enterococcus faecalis. Pyelonephritis with secondary Pseudomonas bacteremia. PLAN The patient will be switched to IV Tobramycin 300 mg every 24 hours if he decides to go home or to the [facility] It will be easier than Zosyn amoxicillin 500 mg by mouth three times a day for Enterococcus continue for 10 day treatment. MTDD
[2016-12-10] MEDS: AMOXICILLIN 500 MG CAP PO SCH ×2 (14:42→21:24)
[2016-12-11] MEDS: oxyCODONE 5MG TAB PO PRN ×4 (05:19→19:57)
[2016-12-11] MEDS: AMOXICILLIN 500 MG CAP PO SCH ×3 (05:19→21:49)
[2016-12-11 06:00] VITALS: BP 108/59
[2016-12-11] MEDS: ENOXAPARIN 40 MG/0.4 ML SYRINGE (J1650) SC SCH (09:00)
[2016-12-11] MEDS: TOBRAMYCIN SULF IV SCH (09:50)
[2016-12-11] MEDS: TAMSULOSIN 0.4 MG CAP PO SCH ×2 (09:50→19:57)
[2016-12-11] MEDS: D5W IV SCH (09:50)
[2016-12-11] MEDS: oxyBUTYnin 5 MG TAB PO SCH (09:51)
[2016-12-11] MEDS: DOCUSATE SODIUM 100 MG CAP PO SCH ×2 (09:51→19:57)
[2016-12-11] MEDS: diphenhydrAMINE 25 MG CAP PO PRN (21:49)
[2016-12-12] MEDS: oxyCODONE 5MG TAB PO PRN ×6 (00:56→22:52)
[2016-12-12] MEDS: AMOXICILLIN 500 MG CAP PO SCH ×3 (05:32→21:10)
[2016-12-12 06:00] VITALS: BP 123/74
[2016-12-12] MEDS: ENOXAPARIN 40 MG/0.4 ML SYRINGE (J1650) SC SCH (09:00)
[2016-12-12] MEDS: TAMSULOSIN 0.4 MG CAP PO SCH ×2 (09:47→21:10)
[2016-12-12] MEDS: oxyBUTYnin 5 MG TAB PO SCH (09:47)
[2016-12-12] MEDS: TOBRAMYCIN SULF IV SCH (09:48)
[2016-12-12] MEDS: DOCUSATE SODIUM 100 MG CAP PO SCH ×2 (09:48→21:10)
[2016-12-12] MEDS: D5W IV SCH (09:48)
[2016-12-12] MEDS: ACETAMINOPHEN 500 MG TAB PO PRN (17:11)
[2016-12-12] MEDS: diphenhydrAMINE 25 MG CAP PO PRN (22:52)
[2016-12-13] MEDS: oxyCODONE 5MG TAB PO PRN ×5 (05:49→22:42)
[2016-12-13] MEDS: AMOXICILLIN 500 MG CAP PO SCH ×3 (05:49→21:13)
[2016-12-13 06:00] VITALS: BP 111/67
[2016-12-13] MEDS: DOCUSATE SODIUM 100 MG CAP PO SCH ×2 (09:00→21:13)
[2016-12-13] MEDS: TAMSULOSIN 0.4 MG CAP PO SCH ×2 (09:00→21:13)
[2016-12-13] MEDS: oxyBUTYnin 5 MG TAB PO SCH (09:00)
[2016-12-13] MEDS: D5W IV SCH (09:01)
[2016-12-13] MEDS: TOBRAMYCIN SULF IV SCH (09:01)
--- NOTE | 2016-12-13 13:08 | IPNPDOC ---
Subjective Date Seen The patient was seen on 12/13/16. Subjective Chief Complaint/HPI The patient is a 30-year-old male admitted with a reason for visit of Obstructive Uropathy. Events since last encounter Patient has improving abd/flank pain, tolerating diet, good pain relief with po meds- we discussed that we will need to switch back to his home dose of meds at or prior to d/c, He may wish to go home before completing his course of antibiotics, he still has not really decided Constitutional: Denies: Chills, Fever Pulmonary: Denies: Dyspnea, Cough Cardiovascular: Denies: Chest Pain, Palpitations Gastrointestinal: Reports: Abdominal Pain (improved), Denies: Nausea, Vomiting Objective Physical Examination General Exam: Positive: Alert, Cooperative, No Acute Distress ENT Exam: Positive: Atraumatic Neck Exam: Positive: Supple Chest Exam: Positive: Clear to auscultation, Normal air movement Heart Exam: Positive: Rate Normal, Regular Rhythm, Normal S1, Normal S2 Telemetry: Positive: No significant arrhythmia, Sinus, Bradycardia Abdomen Exam: Positive: Normal bowel sounds, Soft, Tenderness Extremity Exam: Negative: Edema Psych Exam: Positive: Oriented x 3 Assessment /Plan Problems (1) Bacteremia due to Pseudomonas Status: Acute Response to Treatment: Improving Discussed With: Patient Problem Specific Plan: Monitor Clinically, Repeat Labs Problem Text: I discussed with Dr. Ackerman in person U/S ordered continue on zosyn as sole antibiotic possibility of home d/c with picc- which he is uncomfortable with, or daily presentation to transfusion center- (he is unsure whether he would be able to afford the trip) may need placement for short term therapy at [facility] Antibiotic therapy until December 20, 2016 (2) Pyelonephritis Status: Acute Problem Text: ucx consistent with previous cultures - pseudo + enterococci: Fever curve resolved leukocytosis improving. Recent right ureteral stent placement. Dr. Mckeon D/W Dr. Perry's service ([facility]), no need for transfer. Patient missed first follow up after stent placement, was scheduled for follow up 12/06. Dr. Mckeon discussed with urology dr. mobley - continue antibiotics. I d/w Dr Mobley today- recommends d/c with gray catheter Infection related to chronic self catheterization Sepsis/fever/bacteremia present on admission Patient requires 14 days iv antibiotics- working out specifics of home plan or [facility] for continued iv antibiotics (3) Neurogenic bladder Status: Chronic Problem Text: Patient self catheterizes. at baseline but will go home with catheter per urology instructions I discussed with Dr. Mobley in person (4) Obstructive uropathy Status: Acute Problem Text: D/w urology in house as well as dr. perry's service who placed stent - no surgical intervention, assistance appreciated. 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 need to prevent reflux ) Plan IVF: Continue Diet: Continue Current Activity: Continue Current Medications: Taper Antibiotics Diagnostics: Repeat Labs in AM, Obtain Cultures VS, I&O, 24H, Fishbone Vital Signs/I&O Vital Signs Date Time Temp Pulse Resp B/P (MAP) Pulse Ox O2 Delivery O2 Flow Rate FiO2 12/13/16 11:00 18 Room Air 12/13/16 06:00 97.2 83 111/67 (82) 98 I&O- Last 24 Hours up to 6 AM 12/13/16 05:59 Intake Total 1490 ml Output Total 2125 ml Balance -635 ml Laboratory Data 24H LABS Laboratory Tests 2 12/13/16 07:56: Random Tobramycin Level < 0.3 Microbiology Microbiology 12/03/16 Blood Culture - Final, Complete NO GROWTH AFTER 5 DAYS 12/03/16 Blood Culture - Final, Complete NO GROWTH AFTER 5 DAYS 12/03/16 MRSA Screen - Final, Complete MEDHAT HART MD December 13, 2016 13:08
[2016-12-13 14:00] VITALS: BP 141/71
[2016-12-13] MEDS: ENOXAPARIN 40 MG/0.4 ML SYRINGE (J1650) SC SCH (14:41)
[2016-12-13] MEDS: diphenhydrAMINE 25 MG CAP PO PRN (22:42)
[2016-12-14] MEDS: oxyCODONE 5MG TAB PO PRN ×5 (05:40→22:37)
[2016-12-14] MEDS: AMOXICILLIN 500 MG CAP PO SCH ×3 (05:40→21:17)
[2016-12-14 06:00] VITALS: BP 137/63
[2016-12-14] MEDS: D5W IV SCH (09:59)
[2016-12-14] MEDS: TOBRAMYCIN SULF IV SCH (09:59)
[2016-12-14] MEDS: DOCUSATE SODIUM 100 MG CAP PO SCH ×2 (09:59→21:17)
[2016-12-14] MEDS: TAMSULOSIN 0.4 MG CAP PO SCH ×2 (10:00→21:17)
[2016-12-14] MEDS: oxyBUTYnin 5 MG TAB PO SCH (10:00)
[2016-12-14] MEDS: ENOXAPARIN 40 MG/0.4 ML SYRINGE (J1650) SC SCH (10:02)
[2016-12-14] MEDS ORDERED: [UNRECOGNIZED DRUG - CODE] IV (12:57)
[2016-12-14] MEDS ORDERED: AMOX500C PO (12:57)
--- NOTE | 2016-12-14 17:40 | IPN ---
DATE: 12/14/2016 Luis Eduardo seems to be doing better. He has been afebrile since 12/07/2016. He still has some flank pain but that is improving. He states it is mostly positional. He has mild nausea but no vomiting or diarrhea. No abdominal pain. LABORATORY DATA: Last done on 12/09/2016, white count was 10.6, BUN 17, creatinine 0.63, random Tobramycin level was less than 0.3 on 12/13/2016. PHYSICAL EXAMINATION: Heart: Normal S1, S2. No murmurs. Lungs are clear. No wheezes, rales, rhonchi. Abdomen is soft, nontender. No visceromegaly. Extremities: Deformed from spina bifida. No edema. IMPRESSION: Right-sided pyelonephritis, status post extraction of a stone with Pseudomonas bacteremia and urine culture positive for Enterococcus and Pseudomonas. The patient is currently on tobramycin 300 mg IV daily and amoxicillin 500 mg by mouth three times a day, doing well. PLAN: The patient will need antibiotic until 12/17/2016, would be 14 days of therapy with appropriate antibiotic including Zosyn and meropenem previously. This could be done either at the hospital here or at the [facility], they will only take him if he only has three more days of antibiotics through a peripheral IV. Repeat labs tomorrow including complete blood count (CBC), basic profile, random tobramycin level and C-reactive protein (CRP). [facility]
[2016-12-14] MEDS: diphenhydrAMINE 25 MG CAP PO PRN (22:36)
[2016-12-15] MEDS: oxyCODONE 5MG TAB PO PRN ×5 (03:08→21:03)
[2016-12-15] MEDS: AMOXICILLIN 500 MG CAP PO SCH ×3 (05:12→21:13)
[2016-12-15 06:00] VITALS: BP 124/62
[2016-12-15] MEDS ORDERED: ALPRAZolam 0.25 MG TAB PO ONE (09:30)
[2016-12-15 09:38] LABS: ANION GAP 5 MEQ/L (8-16); BLOOD UREA NITROGEN 16 MG/DL (7-18); CALCIUM LEVEL 9.5 MG/DL (8.5-10.1); CARBON DIOXIDE LEVEL 30 MEQ/L (21-32); CHLORIDE LEVEL 102 MEQ/L (98-107); CREATININE FOR GFR 0.77 MG/DL (0.70-1.30); GLOMERULAR FILTRATION RATE > 60.0 (>60); GLUCOSE, FASTING 78 MG/DL (70-105); POTASSIUM SERUM 3.5 MEQ/L (3.5-5.1); SODIUM LEVEL 137 MEQ/L (136-145); TOBRAMYCIN LEVEL TROUGH < 0.3 MCG/ML (0.0-2.0)
[2016-12-15] MEDS: TAMSULOSIN 0.4 MG CAP PO SCH ×2 (09:51→21:03)
[2016-12-15] MEDS: ENOXAPARIN 40 MG/0.4 ML SYRINGE (J1650) SC SCH (09:51)
[2016-12-15] MEDS: DOCUSATE SODIUM 100 MG CAP PO SCH ×2 (09:52→21:02)
[2016-12-15] MEDS: TOBRAMYCIN SULF IV SCH (09:52)
[2016-12-15] MEDS: D5W IV SCH (09:52)
[2016-12-15] MEDS: oxyBUTYnin 5 MG TAB PO SCH (09:52)
[2016-12-15 11:01] LABS: BASO # 0.1 K/mm3 (0.0-0.2); BASO % 0.9 % (0.0-1.0); EOS # 0.4 K/mm3 (0.0-0.50); EOS % 6.4 % (0.0-3.0); LARGE UNSTAINED CELL # 0.1 K/mm3 (0.0-0.4); LARGE UNSTAINED CELL % 1.3 % (0.0-4.0); LYMPH # 1.5 K/mm3 (1.5-6.5); LYMPH % 21.8 % (24.0-44.0); MEAN CORPUSCULAR HEMOGLOBIN 27.9 pg (27.0-33.0); MEAN CORPUSCULAR HGB CONC 32.5 g/dl (32.0-36.5); MEAN CORPUSCULAR VOLUME 85.6 fl (80.0-96.0); MONO # 0.4 K/mm3 (0.0-0.8); MONO % 6.5 % (0.0-5.0); NEUTROPHILS # 4.2 K/mm3 (1.8-7.7); NEUTROPHILS % 63.2 % (36.0-66.0); PLATELET COUNT, AUTOMATED 614 k/mm3 (150-450); RED CELL DISTRIBUTION WIDTH 14.9 % (11.5-14.5); WHITE BLOOD COUNT 6.7 K/mm3 (4.0-10.0)
[2016-12-15] MEDS: diphenhydrAMINE 25 MG CAP PO PRN (21:02)
[2016-12-16] MEDS: AMOXICILLIN 500 MG CAP PO SCH ×3 (05:21→21:27)
[2016-12-16] MEDS: oxyCODONE 5MG TAB PO PRN ×5 (05:22→22:42)
[2016-12-16 06:00] VITALS: BP 150/86
[2016-12-16] MEDS: oxyBUTYnin 5 MG TAB PO SCH (08:38)
[2016-12-16] MEDS: TAMSULOSIN 0.4 MG CAP PO SCH ×2 (08:38→21:27)
[2016-12-16] MEDS: DOCUSATE SODIUM 100 MG CAP PO SCH ×2 (08:38→21:27)
[2016-12-16] MEDS: D5W IV SCH (08:39)
[2016-12-16] MEDS: ENOXAPARIN 40 MG/0.4 ML SYRINGE (J1650) SC SCH (08:39)
[2016-12-16] MEDS: TOBRAMYCIN SULF IV SCH (08:39)
[2016-12-16] MEDS: diphenhydrAMINE 25 MG CAP PO PRN (22:41)
[2016-12-17] MEDS: AMOXICILLIN 500 MG CAP PO SCH (05:07)
[2016-12-17] MEDS: oxyCODONE 5MG TAB PO PRN ×2 (05:08→09:29)
[2016-12-17 05:45] VITALS: BP 105/58
[2016-12-17] MEDS: oxyBUTYnin 5 MG TAB PO SCH (09:28)
[2016-12-17] MEDS: DOCUSATE SODIUM 100 MG CAP PO SCH (09:28)
[2016-12-17] MEDS: TAMSULOSIN 0.4 MG CAP PO SCH (09:28)
[2016-12-17] MEDS: D5W IV SCH (09:29)
[2016-12-17] MEDS: ENOXAPARIN 40 MG/0.4 ML SYRINGE (J1650) SC SCH (09:29)
[2016-12-17] MEDS: TOBRAMYCIN SULF IV SCH (09:29)
[2016-12-17] MEDS ORDERED: FLOM5CAP PO (11:07)
[2016-12-17] MEDS ORDERED: AMOX500C PO (11:07)
--- NOTE | 2016-12-17 15:22 | DS.PDOC ---
Discharge Summary General Date of Admission December 02, 2016 at 17:29 Date of Discharge 12/17/16 Specialist/Consultants Involve Dr. Ackerman of [place] Discharge Summary PROCEDURES PERFORMED DURING STAY: None. ADMITTING DIAGNOSES: 1. .Right-sided pyelonephritis, status post extraction of a stone with Pseudomonas bacteremia and urine culture positive for Enterococcus and Pseudomonas 2. . History of a recurrent UTIs 3. . History of nephrolithiasis DISCHARGE DIAGNOSES: 1. .Right-sided pyelonephritis, status post extraction of a stone with Pseudomonas bacteremia and urine culture positive for Enterococcus and Pseudomonas 2. . History of a recurrent UTIs 3. . History of nephrolithiasis COMPLICATIONS/CHIEF COMPLAINT: Obstructive Uropathy. HISTORY OF PRESENT ILLNESS: . 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 The patient states that he was recently seen at [facility] for nephrolithiasis and was found to have a large kidney stone measuring about 1.4 cm which required stone extraction by urologist Dr. Eli. At that time, the patient was noted to be culture positive for Pseudomonas , and a PICC line was placed and the patient was discharged home on IV meropenem. The patient apparently finished 7 days of IV antibiotic therapy. About a week later the patient states that he started to have increasing severe right-sided flank pain with fevers of 102.5, and generalized weakness. He presented to the ER for further evaluation and management here at [facility]. During hospitalization, the patient was noted to be positive on blood culture for Pseudomonas and urine culture for Pseudomonas and Enterococcus faecalis. Infectious diseases was consulted and the patient was started on IV Zosyn. Repeat blood cultures were noted to be negative. The patient's symptoms resolved following IV antibiotic therapy, which he completed a 14 day course of. My colleague Dr. Mckeno did get in touch with the patient's urologist Dr. Eli at [facility] and he recommended for the patient to follow-up with him as an outpatient after completion of his IV Abx therapy. At this time, the patient states he is feeling much better and is eager to return home. I've advised the patient to follow-up with his primary care physician within one week, and follow -up with his urologist within 2-3 weeks. Should the patient's symptoms return or get worse, he has been advised to return to ER. DISCHARGE MEDICATIONS: Please see below. ALLERGIES: Please see below. PHYSICAL EXAMINATION ON DISCHARGE: VITAL SIGNS: Please see below. General Exam: Positive: Alert, Cooperative, No Acute Distress ENT Exam: Positive: Atraumatic Neck Exam: Positive: Supple Chest Exam: Positive: Clear to auscultation, Normal air movement Heart Exam: Positive: Rate Normal, Regular Rhythm, Normal S1, Normal S2 Telemetry: Positive: No significant arrhythmia, Sinus, Bradycardia Abdomen Exam: Positive: Normal bowel sounds, Soft, Tenderness Extremity Exam: Negative: Edema Psych Exam: Positive: Oriented x 3 LABORATORY DATA: Please see below. IMAGING: Clinical: Follow up hydronephrosis with persistent fever. Technique: Real time mahoney scale ultrasound examination using curved array transducer. Findings: The right kidney is enlarged and demonstrates mild hydroureteronephrosis with stent in satisfactory position. Right kidney measures 13.0 x 7.1 x 7.2 cm without nephrolithiasis or mass lesion. Comparison with prior CT suggesting the possibility of right-sided pyelonephritis. The left kidney demonstrates severe cortical thinning and grade 4 hydroureteronephrosis which appears chronic when compared and correlated with prior CT. Left kidney measures 10.6 x 3.9 x 4.9 cm without nephrolithiasis or mass lesion and no obvious perinephric stranding. Meeks catheter identified in collapsed bladder. Impression: 1. Chronic changes to the left kidney including cortical thinning and chronic hydroureteronephrosis without nephrolithiasis, mass lesion or perinephric stranding. 2. Asymmetric enlargement to the right kidney with mild grade 2 hydroureternephrosis and stent in satisfactory position. No obvious nephrolithiasis, mass lesion or definite perinephric stranding. PROGNOSIS: Medically stable ACTIVITY: As tolerated. DIET: .Regular Diet DISCHARGE PLAN: Home DISPOSITION: 01 Home, Self-Care. DISCHARGE INSTRUCTIONS: 1. . Follow up with primary care physician within one week 2. . Follow-up with urology within 1-2 weeks 3. . Return to ER if symptoms return or persist. DISCHARGE CONDITION: Stable. TIME SPENT ON DISCHARGE: Greater than 30 minutes. Vital Signs/I&Os Vital Signs Date Time Temp Pulse Resp B/P (MAP) Pulse Ox O2 Delivery O2 Flow Rate FiO2 12/17/16 10:48 18 12/17/16 05:45 98.1 66 105/58 (74) 99 Room Air I&O- Last 24 Hours up to 6 AM 12/17/16 06:00 Intake Total 1440 ml Output Total 2250 ml Balance -810 ml Discharge Medications Scheduled Amoxicillin (Amoxicillin) 500 Mg Cap, 500 MG PO BID Oxybutynin Chloride (Oxybutynin Chloride) 5 Mg Tab, 10 MG PO DAILY, (Reported) Tamsulosin Hydrochloride (Flomax) 0.4 Mg Cap, 0.4 MG PO BID Scheduled PRN Oxycodone HCl (Oxycodone HCl) 10 Mg Tab, 10 MG PO Q6H PRN for PAIN, (Reported) Allergies Coded Allergies: Latex (Verified Allergy, Mild, HIVES, 11/28/14) Meperidine (Verified Allergy, Mild, HIVES, FLUSHING, 11/28/14) Vancomycin (Verified Allergy, Mild, HIVES, FLUSHING, SOB, 11/28/14) BRITTNEY REILLY MD Dec 17, 2016 15:22
== END 2016-12-17 12:41 | disposition home or self-care (01) | DRG 698 ==
LOC: M ED 14:21 → M ED INP 17:29 → EEVIPCON 17:29 → M MS5PR 20:29 → M PCU 12-04 15:48 → M MSPAV 12-06 15:34
PROVIDERS: ADMIT Internal Medicine Nephrology; ATTEND Internal Medicine
DX: T83.518A Infection and inflammatory reaction due to other urinary catheter, initial encounter (principal); A41.89 Other specified sepsis; G82.20 Paraplegia, unspecified; Q05.4 Unspecified spina bifida with hydrocephalus; E87.1 Hypo-osmolality and hyponatremia; Z88.1 Allergy status to other antibiotic agents; N13.9 Obstructive and reflux uropathy, unspecified; Z91.040 Latex allergy status; Z88.8 Allergy status to other drugs, medicaments and biological substances; F17.210 Nicotine dependence, cigarettes, uncomplicated; E87.6 Hypokalemia; F41.9 Anxiety disorder, unspecified; N31.9 Neuromuscular dysfunction of bladder, unspecified; B96.5 Pseudomonas (aeruginosa) (mallei) (pseudomallei) as the cause of diseases classified elsewhere

== ENCOUNTER 2021-02-22 12:11 | Inpatient (IN) | payer MEDICARE, MEDICAID ==
[~2021-02-22] VITALS: Ht 154.9 cm; Wt 63.8 kg
[~2021-02-22 12:11] MED LIST changes: +AMOX500C PO; +AMPI500C9 PO; -AMPI50CA PO; +CIPR-249 PO; -CIPR500T89 PO; +FLOM0.4C39 PO; -LYRI100C10 PO; -MACR100C3 PO; +MACR100C43 PO; -OXYB10TA PO; +OXYB10TA23 PO; -OXYB5TA PO; +OXYB5TAB10 PO; +OXYC-1 PO; +OXYC10TA12 PO; -OXYC15TA76 PO; +PERC5TAB12 PO; -PERC5TAB6 PO; +PERC7.5T11 PO; -PERC7.5T3 PO; +PREG100CA PO; +[UNRECOGNIZED DRUG - CODE] IV
[2021-02-22] MEDS ORDERED: NS 1,000 ML IV ONE (13:00)
[2021-02-22] MEDS ORDERED: ONDANSETRON 4MG/2ML VIAL IV ONE (13:05)
[2021-02-22] MEDS ORDERED: ACETAMINOPHEN 500 MG TAB PO ONE (13:05)
[2021-02-22 13:27] LABS: BASO % 0.2 % (0.0-1.0); HEMATOCRIT 39.6 % (42.0-52.0); LYMPH # 0.5 10^3/uL (1.5-5.0); LYMPH % 2.8 % (24.0-44.0); MEAN CORPUSCULAR HEMOGLOBIN 27.3 pg (27.0-33.0); MEAN CORPUSCULAR HGB CONC 32.8 g/dl (32.0-36.5); MEAN CORPUSCULAR VOLUME 83.2 fl (80.0-96.0); MONO # 1.7 10^3/uL (0.0-0.8); MONO % 9.4 % (2.0-8.0); NEUTROPHILS % 87.1 % (36.0-66.0); PLATELET COUNT, AUTOMATED 359 10^3/uL (150-450); RED BLOOD COUNT 4.76 10^6/uL (4.30-6.10)
[2021-02-22] MEDS ORDERED: PIPERACILLIN/TAZOBACTAM SOD 4.5 GM in D5W MINI-BAG PLUS 50 ML IV ONE (13:40)
[2021-02-22] MEDS ORDERED: NS IV ONE (13:40)
[2021-02-22] MEDS ORDERED: MORPHINE 4 MG/ML 1ML VIAL/SYRINGE (J2270) IV ONE ×2 (13:45→15:30)
[2021-02-22 13:49] LABS: ALBUMIN 3.5 GM/DL (3.2-5.2); BILIRUBIN,DIRECT 0.2 MG/DL (0.0-0.2); BILIRUBIN,TOTAL 0.6 MG/DL (0.2-1.0); TOTAL PROTEIN 7.5 GM/DL (6.4-8.2)
[2021-02-22] MEDS ORDERED: ISOVUE-370 76% 100ML VIAL As Ordered ONE (14:03)
[2021-02-22 14:17] LABS: WHITE BLOOD COUNT 18.4 10^3/uL (4.0-10.0)
--- NOTE | 2021-02-22 15:07 | REP ---
INDICATION: R flank pain, h/o stent placement 02/10. COMPARISON: Abdomen/pelvis CT dated 12/02/2016. TECHNIQUE: Abdomen/pelvis CT with IV contrast, without bowel contrast. FINDINGS: There is a right ureteral stent with the proximal pigtail in the right renal pelvis in the distal pigtail in the urinary bladder in satisfactory positions. There is no right hydronephrosis or perinephric stranding. There are focal areas of right renal cortical scarring. This is unchanged. No right renal masses or cysts are identified. There are 3 punctate calcifications in the upper pole of the right kidney. The left kidney is no longer identified, compatible with interim left nephrectomy. The visualized lung fang are unremarkable. The hepatic parenchyma, gallbladder, pancreas and spleen are unremarkable. The adrenals are unremarkable. The abdominal aorta is unremarkable. There is no periaortic adenopathy or mass. There are few normal size nodes. There is no bowel distention or obstruction. The portion of a ASSISTANT FLOOR COVERING PRINTER shunt tube is identified with the tip in the pelvis in satisfactory position. No ASSISTANT FLOOR COVERING PRINTER shunt tubing kinking is identified. There is no mass or cyst at the distal tip of the shunt. There is no ascites. There is wall thickening of the colonic hepatic flexure, transverse colon, descending colon and sigmoid colon, nonspecific, but could represent infectious versus inflammatory colitis in the appropriate clinical setting. Pelvis: There is a small volume of ascites in the dependent pelvis. There is no adenopathy. IMPRESSION: There is a right ureteral stent with the proximal and distal pigtails in satisfactory positions. There is no right hydronephrosis. There are 3 punctate renal calcifications in the right renal upper pole, nonobstructive. There are no right renal masses or cysts. The left kidney is no longer identified compatible with interim left nephrectomy. Wall thickening of the colonic hepatic flexure, transverse colon, descending colon and sigmoid colon, nonspecific, but compatible with infectious versus inflammatory colitis in the appropriate clinical setting. There is a small volume of ascites in the pelvis. <Electronically signed by Lanre Larson > 02/22/21 [id number]
[2021-02-22] MEDS ORDERED: METH-855 PO (15:54)
[2021-02-22] MEDS ORDERED: IBUP200T45 PO (15:54)
[2021-02-22] MEDS ORDERED: HOME MED LIST COMPLETE! XX SCH (15:55)
[2021-02-22 16:14] LABS: RSV AMPLIFICATION NEGATIVE (NEGATIVE)
--- NOTE | 2021-02-22 17:01 | HPEPDOC ---
[facility] Medical History & Physical Date of Admission Feb 22, 2021 Date of Service: Feb 22, 2021 History and Physical CHIEF COMPLAINT: flank pain HISTORY OF PRESENT ILLNESS: 35-year-old gentleman with past medical history of paraplegia secondary to spina bifida, wheelchair dependent, and recurrent urinary tract infections with recent right ureteral stent placement on March 13 for nephrolithiasis, presents for one day history of right flank pain. . He describes his flank pain is constant, radiating to his groin rated as 8-9 out of 10, worsening with movement. . He also notes fevers and chills at home with a measured temperature of 102.9, and nausea. The emergency room. He continues to note right flank pain and tenderness with nausea. He denies shortness of breath, chest pain, headaches, changes in vision, vomiting or sick contacts. PAST MEDICAL HISTORY: #spina bifida/wheelchair dependent/paraplegia #hydrocephalus s/p ULTRASOUND MANAGER shunt #recurrent UTI #Hx pyelo with pseudomonas PAST SURGICAL HISTORY: #right ureteral stent placement - 02/10/21 - Dr. Bolton - urology in [place] SOCIAL HISTORY: #nicotine abuse - 1/2 ppd x 20 years #marijuana use - 2-3 x week x 20 years FAMILY HISTORY: Viewed with patient. Patient is not aware of any medical issues with his mother or father. His mother is , boating accident 2007. ALLERGIES: Please see below. REVIEW OF SYSTEMS: Negative except as per HPI HOME MEDICATIONS: Please see below. PHYSICAL EXAMINATION: General: lying in bed, mild discomfort HEENT: NC/AT, EOMI Lungs: CTA B/L Heart: +S1S2, RRR Abd: soft, +BS, right abdominal tenderness, right flank tenderness Ext: no edema Neuro: unable to move b/l LE, otherwise no gross focal deficits Psych: AAOx3 LABORATORY DATA: See below. MICROBIOLOGY: Please see below. A/P: 35-year-old male with past medical history of recurrent UTIs, recent right ureteral stent placement on March 13 in [place] presents for one day history of acute onset of right flank pain with fevers, chills, nausea. #sepsis due to urinary tract infection - imaging shows stent properly positioned, no hydronephrosis - start zosyn - blood cultures, UCx pending - d/w urology - c/s pending - assistance appreciated #Hx hydrocephalus s/p ULTRASOUND MANAGER shunt #spina bifida/paraplegia #nicotine abuse - nicotine replacement therapy #DVT prophylaxis Vital Signs Vital Signs Date Time Temp Pulse Resp B/P (MAP) Pulse Ox O2 Delivery O2 Flow Rate FiO2 02/22/21 15:37 16 02/22/21 15:28 98.8 105 123/75 (91) 99 Room Air Laboratory Data Labs 24H Laboratory Tests 2 02/22/21 13:08: Urine Color YELLOW, Urine Appearance CLOUDYH, Urine pH 6.0, Urine Specific [place] 1.008, Urine Protein 2+H, Urine Glucose (UA) NEGATIVE, Urine Ketones 1+H, Urine Blood 3+H, Urine Nitrite POSITIVEH, Urine Bilirubin NEGATIVE, Urine Urobilinogen 0.2, Urine Leukocyte Esterase 3+H, Urine WBC (Auto) 144H, Urine RBC (Auto) 34H, Urine Hyaline Casts (Auto) 0, Urine Bacteria (Auto) 2+H, Urine Squamous Epithelial Cells 1, Urine Mucus (Auto) SMALL, Urine Yeast-Like Cells (Auto) SMALLH, Urine Sperm (Auto) 02/22/21 13:13: Immature Granulocyte % (Auto) 0.5, Neutrophils (%) (Auto) 87.1H, Lymphocytes (%) (Auto) 2.8L, Monocytes (%) (Auto) 9.4H, Eosinophils (%) (Auto) 0.0, Basophils (%) (Auto) 0.2, Neutrophils # (Auto) 16.0H, Lymphocytes # (Auto) 0.5L, Monocytes # (Auto) 1.7H, Eosinophils # (Auto) 0.0, Basophils # (Auto) 0.0, Nucleated Red Blood Cells % (auto) 0.0, Lactic Acid Level 1.1, Total Bilirubin 0.6, Direct Bilirubin 0.2, Aspartate Amino Transf (AST/SGOT) 11, Alanine Aminotransferase (ALT/SGPT) 32, Alkaline Phosphatase 69, Total Protein 7.5, Albumin 3.5, Albumin/Globulin Ratio 0.9, Amylase Level 25, Lipase 53L 02/22/21 13:18: POC Glucose (Misc Panel) 101, POC Sodium (Misc Panel) 137, POC Potassium (Misc Panel) 3.7, POC Chloride (Misc Panel) 97L, POC Total CO2 (Misc Panel) 26.0, POC Blood Urea Nitrogen (Misc Panel 10, POC Ionized Calcium (Misc Panel) 4.4L, POC Creatinine (Misc Panel) 0.5L, POC Hematocrit (Misc Panel) 41.0 02/22/21 15:26: Coronavirus (COVID-19)(PCR) NEGATIVE, Influenza Type A (RT-PCR) NEGATIVE, Influenza Type B (RT-PCR) NEGATIVE, Respiratory Syncytial Virus (PCR) NEGATIVE CBC/BMP Laboratory Tests 02/22/21 13:13 Microbiology Microbiology 02/22/21 Blood Culture, Received Pending 02/22/21 Urine Culture, Received Pending Home Medications Scheduled Methenamine Hippurate (Methenamine Hippurate) 1 Gm Tablet, 1 GM PO BID Scheduled PRN Ibuprofen (Ibu-200) 200 Mg Tablet, 400 MG PO Q6H PRN for PAIN LEVEL 1-6 Allergies Coded Allergies: cefepime (Verified Allergy, Unknown, ELIAS SYNDROME, 02/22/21) latex (Verified Allergy, Unknown, 02/22/21) meperidine (Verified Allergy, Unknown, RASH AT IV SITE, 02/22/21) vancomycin (Verified Allergy, Unknown, ELIAS SYNDROME, 02/22/21) A-FIB/CHADSVASC A-FIB History Current/History of A-Fib/PAF?: No FOSTER ANDREWS MD Feb 22, 2021 17:01
[2021-02-22] MEDS: NICOTINE 14 MG/24 HR TRANSDERMAL TD SCH (17:36)
[2021-02-22] MEDS: MORPHINE 2 MG/ML 1ML VIAL (J2270) IV PRN ×2 (17:36→20:50)
--- NOTE | 2021-02-22 18:23 | CR.PDOC ---
General Date of Consultation: Feb 22, 2021 Referring Provider: FOSTER ANDREWS MD Consultation REASON FOR CONSULTATION/CHIEF COMPLAINT: Urosepsis complicated by a right ureteral stent, solitary kidney, and neurogenic bladder and the patient on CIC secondary to spina bifida HISTORY OF PRESENT ILLNESS: Luis Eduardo is a 35-year-old gentleman with a longstanding history of a neurogenic bladder secondary to spina bifida on CIC, solitary kidney secondary to infection and stones, and continuing nephrolithiasis of the right kidney. He had right laser lithotripsy and right ureteral stent placement done at [facility] by Dr. lEi of [facility] urology on 02/10/2021. He was doing well until yesterday when he started to have very s evere stent pain, fever up to 102, nausea, and chills. The stent had been bothersome but had been achy and now he has a sharp shooting pain and burning sensation which is much worse than his ever had with the stent before. He describes the pain is constant and rates it as a 8-9 out of 10 pain and it is worse with movement. A CT scan 02/22/2021 shows the right ureteral stent is in good position and there is no right hydronephrosis. There are 3 punctate renal calcifications in the right upper pole which are not causing obstruction. The left kidney is no longer there. There is wall thickening of the colonic hepatic flexure, transverse colon, descending colon, and sigmoid colon which is nons pecific but compatible with infectious versus inflammatory colitis. Luis Eduardo says that his urine has been dark. He normally does CIC every few hours and if he waits too long he will have some leakage. He has had diarrhea for at least the last 24 hours ALLERGIES: Please see below. HOME MEDICATIONS: Please see below. PAST MEDICAL HISTORY: -Spina bifida and wheelchair dependent with paraplegia -History of hydrocephalus status post DECORATOR LIGHTING FIXTURES shunt -Recurrent nephrolithiasis -Recurrent UTIs and pyelonephritis with Pseudomonas in the past PAST SURGICAL HISTORY: -Multiple urologic stone procedures -Left nephrectomy for 5 years ago -Laser lithotripsy and right ureteral stent placement 02/04/[address] Eli at [facility] in [place] FAMILY HISTORY: Noncontributory. His mother in a boating accident in 2007 SOCIAL HISTORY: He is unmarried and does not have any children. He does smoke a half a pack of cigarettes a day and marijuana once every couple of weeks. He denies any other illicit drug use or alcohol. REVIEW OF SYSTEMS: -Please see HPI and otherwise a review of systems was negative except for diarrhea also in the last 24 hours PHYSICAL EXAMINATION: VITAL SIGNS: Please see below. GENERAL APPEARANCE: Well-developed well-nourished gentleman lying in bed in discomfort and appearing slightly ill HEENT: Normocephalic atraumatic, PERRL and EOMI RESPIRATORY: Clear to auscultation and percussion CARDIOVASCULAR: Regular rate and rhythm ABDOMEN: Soft but with definite tenderness throughout but worse on the right- hand side with right flank tenderness EXTREMITIES: Chronic changes from his spina bifida with muscle wasting and paraplegia but no cyanosis clubbing or edema NEUROLOGICAL: Paraplegic but otherwise no gross focal deficits PSYCHIATRIC: Alert and oriented x3 LABORATORY DATA: Please see below. ASSESSMENT -Urosepsis complicated by right ureteral stent placement, solitary kidney, in a patient with a neurogenic bladder on CIC now with severe right flank pain radia ting to the right lower quadrant -History of diarrhea with a CT scan also showing some colonic wall thickening which is nonspecific but compatible with infectious versus inflammatory colitis -Longstanding history of nephrolithiasis and recurrent infections with pyelonephritis on methenamine at home -Spina bifida with paraplegia in a wheelchair -Creatinine is not listed so I will make sure that a BMP is ordered and his white blood count is 18.8 with a positive urinalysis with the stent in place PLAN -Recommend placing a Meeks catheter rather than the patient doing CIC since part of his pain may be secondary to vesicoureteral reflux and this will also allow for more appropriate drainage -No urologic intervention is recommended at this time but if the stent is still causing major problems I would consider removing this tomorrow and I have tentatively put him on the operating room schedule although this will be done under local anesthesia but this may help with some of his pain as long as the kidney continues to drain appropriately -Recommend medical management with broad-spectrum antibiotic coverage until the urine cultures and blood cultures return and at this point he is now on Zosyn -Recommend pain control -Recommend BMP in a patient with a solitary kidney to look at his creatinine level At least 70 minutes was spent today with greater than 50% of this in [id number] consultation This was dictated with Pina and not proofread for errors Vital Signs/I&O Vital Signs Date Time Temp Pulse Resp B/P (MAP) Pulse Ox O2 Delivery O2 Flow Rate FiO2 02/22/21 17:55 98.3 84 16 132/85 (101) 100 02/22/21 15:28 Room Air Laboratory Data Labs 24H Laboratory Tests 2 02/22/21 13:08: Urine Color YELLOW, Urine Appearance CLOUDYH, Urine pH 6.0, Urine Specific [place] 1.008, Urine Protein 2+H, Urine Glucose (UA) NEGATIVE, Urine Ketones 1+H, Urine Blood 3+H, Urine Nitrite POSITIVEH, Urine Bilirubin NEGATIVE, Urine Urobilinogen 0.2, Urine Leukocyte Esterase 3+H, Urine WBC (Auto) 144H, Urine RBC (Auto) 34H, Urine Hyaline Casts (Auto) 0, Urine Bacteria (Auto) 2+H, Urine Sq uamous Epithelial Cells 1, Urine Mucus (Auto) SMALL, Urine Yeast-Like Cells (Auto) SMALLH, Urine Sperm (Auto) 02/22/21 13:13: Immature Granulocyte % (Auto) 0.5, Neutrophils (%) (Auto) 87.1H, Lymphocytes (%) (Auto) 2.8L, Monocytes (%) (Auto) 9.4H, Eosinophils (%) (Auto) 0.0, Basophils (%) (Auto) 0.2, Neutrophils # (Auto) 16.0H, Lymphocytes # (Auto) 0.5L, Monocytes # (Auto) 1.7H, Eosinophils # (Auto) 0.0, Basophils # (Auto) 0.0, Nucleated Red Blood Cells % (auto) 0.0, Lactic Acid Level 1.1, Total Bilirubin 0.6, Direct Bilirubin 0.2, Aspartate Amino Transf (AST/SGOT) 11, Alanine Aminotransferase (ALT/SGPT) 32, Alkaline Phosphatase 69, Total Protein 7.5, Albumin 3.5, Albumin /Globulin Ratio 0.9, Amylase Level 25, Lipase 53L 02/22/21 13:18: POC Glucose (Misc Panel) 101, POC Sodium (Misc Panel) 137, POC Potassium (Misc Panel) 3.7, POC Chloride (Misc Panel) 97L, POC Total CO2 (Misc Panel) 26.0, POC Blood Urea Nitrogen (Misc Panel 10, POC Ionized Calcium (Misc Panel) 4.4L, POC Creatinine (Misc Panel) 0.5L, POC Hematocrit (Misc Panel) 41.0 02/22/21 15:26: Coronavirus (COVID-19)(PCR) NEGATIVE, Influenza Type A (RT-PCR) NEGATIVE, Inf luenza Type B (RT-PCR) NEGATIVE, Respiratory Syncytial Virus (PCR) NEGATIVE CBC/BMP Laboratory Tests 02/22/21 13:13 Microbiology Microbiology 02/22/21 Blood Culture, Received Pending 02/22/21 Blood Culture, Received Pending 02/22/21 Urine Culture, Received Pending Allergies Coded Allergies: cefepime (Verified Allergy, Unknown, ELIAS SYNDROME, 02/22/21) latex (Verified Allergy, Unknown, 02/22/21) meperidine (Verified Allergy, Unknown, RASH AT IV SITE, 02/22/21) vancomycin (Verified Allergy, Unknown, ELIAS SYNDROME, 02/22/21) Home Medications Scheduled Methenamine Hippurate (Methenamine Hippurate) 1 Gm Tablet, 1 GM PO BID, (Reported) Scheduled PRN Ibuprofen (Ibu-200) 200 Mg Tablet, 400 MG PO Q6H PRN for PAIN LEVEL 1-6, (Reported) ROMINA LAM MD Feb 22, 2021 18:23
[2021-02-22] MEDS: PIPERACILLIN/TAZOBACTAM SOD 3.375 GM in D5W MINI-BAG PLUS 50 ML IV SCH (19:33)
[2021-02-22] MEDS: ACETAMINOPHEN TAB 650MG DOSE (2X325MG) PO PRN (19:48)
[2021-02-22 19:50] LABS: BLOOD UREA NITROGEN 9 MG/DL (7-18); CALCIUM LEVEL 8.7 MG/DL (8.5-10.1); CARBON DIOXIDE LEVEL 23 MEQ/L (21-32); CHLORIDE LEVEL 105 MEQ/L (98-107); CREATININE FOR GFR 0.68 MG/DL (0.70-1.30); GLOMERULAR FILTRATION RATE > 60.0 (>60); GLUCOSE, FASTING 92 MG/DL (70-100); SODIUM LEVEL 138 MEQ/L (136-145)
[2021-02-22] MEDS: ONDANSETRON 4MG/2ML VIAL IV PRN (19:51)
[2021-02-22] MEDS: HEPARIN SOD (PORCINE) 5000UNITS/ML 1ML VIAL/SYRINGE SC SCH (21:00)
[2021-02-23] VITALS (8 sets, daily range): BP systolic 108–148; BP diastolic 58–83
[2021-02-23] MEDS: MORPHINE 2 MG/ML 1ML VIAL (J2270) IV PRN ×5 (00:29→13:07)
[2021-02-23] MEDS: PIPERACILLIN/TAZOBACTAM SOD 3.375 GM in D5W MINI-BAG PLUS 50 ML IV SCH ×4 (01:22→20:10)
[2021-02-23] MEDS: ACETAMINOPHEN TAB 650MG DOSE (2X325MG) PO PRN ×3 (01:22→20:10)
[2021-02-23 06:00] LABS: MEAN CORPUSCULAR HEMOGLOBIN 27.8 pg (27.0-33.0); MEAN CORPUSCULAR HGB CONC 33.8 g/dl (32.0-36.5); MEAN CORPUSCULAR VOLUME 82.5 fl (80.0-96.0); PLATELET COUNT, AUTOMATED 287 10^3/uL (150-450); RED BLOOD COUNT 3.88 10^6/uL (4.30-6.10); WHITE BLOOD COUNT 17.6 10^3/uL (4.0-10.0)
[2021-02-23 06:13] LABS: HEMOGLOBIN 10.8 g/dl (13.5-17.5)
[2021-02-23 06:32] LABS: ALBUMIN 2.7 GM/DL (3.2-5.2); ALT/SGPT 22 U/L (12-78); BILIRUBIN,TOTAL 0.4 MG/DL (0.2-1.0); BLOOD UREA NITROGEN 6 MG/DL (7-18); CALCIUM LEVEL 8.5 MG/DL (8.5-10.1); CARBON DIOXIDE LEVEL 25 MEQ/L (21-32); CHLORIDE LEVEL 106 MEQ/L (98-107); CREATININE FOR GFR 0.45 MG/DL (0.70-1.30); GLOMERULAR FILTRATION RATE > 60.0 (>60); GLUCOSE, FASTING 126 MG/DL (70-100); MAGNESIUM LEVEL 1.7 MG/DL (1.8-2.4); POTASSIUM SERUM 3.2 MEQ/L (3.5-5.1); SODIUM LEVEL 140 MEQ/L (136-145); TOTAL PROTEIN 5.8 GM/DL (6.4-8.2)
[2021-02-23] MEDS ORDERED: POTASSIUM CHLORIDE 10 MEQ SR TABLET PO ONE (07:10)
[2021-02-23] MEDS ORDERED: MAG SULF 1GM/100ML (MAG RUN) 1 GM in IV 1 EA IV ONE (07:10)
[2021-02-23] MEDS: NICOTINE 14 MG/24 HR TRANSDERMAL TD SCH (09:00)
[2021-02-23] MEDS: HEPARIN SOD (PORCINE) 5000UNITS/ML 1ML VIAL/SYRINGE SC SCH ×2 (09:00→20:11)
--- NOTE | 2021-02-23 10:53 | IPNPDOC ---
Text Note Date of Service The patient was seen on 02/23/21. NOTE Luis Eduardo still is not feeling well and had a temperature of 102.7 overnight and is still having severe right flank pain down to the groin. His urine culture came back contaminated and his creatinine was normal at 0.68 with his solitary kidney. His white blood count did come down from 18.4 to only 17.6. But with Dr. Eli on the phone today to make sure that there was nothing more that I needed to know about his recent lithotripsy and stent placement. He and I are both in agreement that we can remove the stent and see if this at least helps with his pain since he has no hydronephrosis at this point. Sacral he also has been complaining of quite a lot of diarrhea and the CT scan did show some thickening of the colon which may need further follow-up. I will order a C. difficile now if it has not been done. Physical exam: Well-developed well-nourished male lying in a hospital bed with spina bifida and paraplegia with chronic changes of his lower extremities not looking well and obviously uncomfortable. His heart is regular and his lungs are clear. His abdomen is diffusely tender without any rebound or guarding. His extremities show no cyanosis clubbing or edema. Plan: -Continue Meeks catheterization for now -Plan cystoscopy and stent removal under local anesthesia today -Await final blood cultures -Send C. difficile culture -Continue antibiotic coverage with Zosyn and pain control VS,Fishbone, I+O VS, Fishbone, I+O Laboratory Tests 02/22/21 13:13 02/22/21 19:12 02/23/21 05:32 Vital Signs Date Time Temp Pulse Resp B/P (MAP) Pulse Ox O2 Delivery O2 Flow Rate FiO2 02/23/21 10:19 18 Room Air 02/23/21 07:05 95 02/23/21 06:00 97.2 96 108/64 (79) I&O- Last 24 Hours up to 6 AM0 02/23/21 06:00 Intake Total 2250 ml Output Total 1600 ml Balance 650 ml ROMINA LAM MD Feb 23, 2021 10:53
--- NOTE | 2021-02-23 13:27 | IPNPDOC ---
Text Note Date of Service The patient was seen on 02/23/21. NOTE Subjective: Patient seen and examined at bedside. No acute overnight events reported. No new medical complaints this morning. Still notes abdominal pain/right flank pain. General: lying in bed, mild discomfort HEENT: NC/AT, EOMI Lungs: CTA B/L Heart: +S1S2, RRR Abd: soft, +BS, right abdominal tenderness, right flank tenderness Ext: no edema Neuro: unable to move b/l LE, otherwise no gross focal deficits Psych: AAOx3 LABORATORY DATA: See below. MICROBIOLOGY: Please see below. A/P: 35-year-old male with past medical history of recurrent UTIs, recent right ureteral stent placement on March 13 in [place] presents for one day history of acute onset of right flank pain with fevers, chills, nausea. #sepsis due to urinary tract infection - imaging shows stent properly positioned, no hydronephrosis - Zosyn day #2 - blood cultures, UCx pending - d/w urology - c/s pending - assistance appreciated - plan for stent removal today #diarrhea - CDiff PCR pending #Hx hydrocephalus s/p LANDCARE OFFICER shunt #spina bifida/paraplegia #nicotine abuse - nicotine replacement therapy #DVT prophylaxis VS,Fishbone, I+O VS, Fishbone, I+O Laboratory Tests 02/22/21 19:12 02/23/21 05:32 Vital Signs Date Time Temp Pulse Resp B/P (MAP) Pulse Ox O2 Delivery O2 Flow Rate FiO2 02/23/21 13:07 16 Room Air 02/23/21 07:05 95 02/23/21 06:00 97.2 96 108/64 (79) I&O- Last 24 Hours up to 6 AM 02/23/21 06:00 Intake Total 2250 ml Output Total 1600 ml Balance 650 ml FOSTER ANDREWS MD Feb 23, 2021 13:27
[2021-02-23] MEDS: NS 1,000 ML IV SCH (14:02)
[2021-02-23] MEDS ORDERED: LIDOCAINE 2% 100MG/5ML SDV (FOR ANES.) As Ordered ONE (14:39)
[2021-02-23] MEDS ORDERED: MIDAZOLAM INJ 2MG/2ML VIAL (J2250 PER 1MG) As Ordered ONE (14:39)
[2021-02-23] MEDS ORDERED: fentaNYL 100 MCG/2 ML INJECTION (J3010) As Ordered ONE ×2 (14:39→16:44)
[2021-02-23] MEDS ORDERED: propofoL 200 MG/20 ML VIAL As Ordered ONE (14:39)
[2021-02-23] MEDS ORDERED: LIDOCAINE 2% 5ML JELLY UROJET As Ordered ONE (16:07)
--- NOTE | 2021-02-23 16:42 | ROOPDOC ---
[facility] Report Of Operation Report of Operation DATE OF PROCEDURE: 02/23/21 PREPROCEDURE DIAGNOSES: Right ureteral stent was severe right flank pain and urosepsis but no hydronephrosis POSTPROCEDURE DIAGNOSES: Same PROCEDURE PERFORMED: Cystoscopy and right stent removal, Meeks catheter placement SURGEON: Erika Lam MD ANESTHESIA: IV sedation ESTIMATED BLOOD LOSS: Approximately 0 mL. COMPLICATIONS: None SPECIMENS REMOVED: Right ureteral stent PROCEDURE NOTE: The patient is a 35-year-old gentleman who came in with urosepsis status post a right ureteroscopy and stone manipulation with right stent placement on 02/10/[address] Eli in [place]. A CT scan showed he has a solitary right kidney but with no hydronephrosis and only 3 small punctate stones seen. He has had 24 hours of antibiotics and still had very severe flank pain so we have decided to remove the stent. DESCRIPTION OF PROCEDURE: The patient was brought to the operating room and placed in low lithotomy position. Some IV sedation was given at the patient's request because he is in such severe pain. A 21 Urdu cystoscope was inserted in the urethra was open without any evidence of lesions or strictures. Upon entering the bladder the stent was seen and grasped with forceps and removed without any difficulty. A 16 Urdu Meeks catheter was placed with 5 mL in the balloon. The patient tolerated the procedure well. ERIKA LAM MD Feb 23, 2021 16:42
[2021-02-23] MEDS: fentaNYL 100 MCG/2 ML INJECTION (J3010) IV PRN ×4 (16:45→17:03)
[2021-02-23] MEDS: ONDANSETRON 4MG/2ML VIAL IV PRN (16:53)
[2021-02-23] MEDS ORDERED: LR 1,000 ML IV SCH (17:00)
[2021-02-23] MEDS ORDERED: PERCOCET 5MG/325MG TAB PO PRN (17:00)
[2021-02-23] MEDS ORDERED: ONDANSETRON 4MG/2ML VIAL IV PRN (17:00)
[2021-02-23] MEDS: MORPHINE 4 MG/ML 1ML VIAL/SYRINGE (J2270) IV PRN ×2 (17:38→23:25)
[2021-02-23 20:44] LABS: CLOSTRIDIUM DIFFICILE PCR NEGATIVE (NEGATIVE)
[2021-02-24 02:00] VITALS: BP 121/78
[2021-02-24] MEDS: PIPERACILLIN/TAZOBACTAM SOD 3.375 GM in D5W MINI-BAG PLUS 50 ML IV SCH ×4 (02:15→20:02)
[2021-02-24] MEDS: MORPHINE 4 MG/ML 1ML VIAL/SYRINGE (J2270) IV PRN ×5 (03:35→21:21)
[2021-02-24 06:00] VITALS: BP 129/85
[2021-02-24] MEDS ORDERED: POTASSIUM CHLORIDE 10 MEQ SR TABLET PO ONE (07:45)
[2021-02-24] MEDS ORDERED: MAG SULF 1GM/100ML (MAG RUN) 1 GM in IV 1 EA IV ONE (07:45)
[2021-02-24] MEDS: ONDANSETRON 4MG/2ML VIAL IV PRN (08:17)
[2021-02-24] MEDS: NICOTINE 14 MG/24 HR TRANSDERMAL TD SCH (08:28)
[2021-02-24] MEDS: HEPARIN SOD (PORCINE) 5000UNITS/ML 1ML VIAL/SYRINGE SC SCH ×2 (08:28→20:08)
--- NOTE | 2021-02-24 08:38 | IPNPDOC ---
Text Note Date of Service The patient was seen on 02/24/21. NOTE Luis Eduardo had his stent removed last night and is slightly better but still having quite a bit of flank pain still radiating to the groin feeling like the stent is still almost in there. His diarrhea is much improved. He has been afebrile overnight and his blood cultures so far show no growth. The C. difficile came back negative. Physical exam: Well-developed well-nourished male lying in a hospital bed in no apparent respiratory distress. He is alert and oriented 3. He still has some right CVA tenderness and right abdominal diffuse tenderness without rebound or guarding. He has no cyanosis, clubbing, or edema. Plan: -Continue the Meeks catheter until the patient would like to start self catheterizing himself -Continue antibiotic coverage and pain control and await new urine culture that was sent and final blood cultures -Await white blood count today VS,Fishbone, I+O VS, Fishbone, I+O Vital Signs Date Time Temp Pulse Resp B/P (MAP) Pulse Ox O2 Delivery O2 Flow Rate FiO2 02/24/21 08:18 15 02/24/21 06:00 97.8 82 129/85 (100) 99 Room Air I&O- Last 24 Hours up to 6 AM 02/24/21 05:59 Intake Total 1690 ml Output Total 2000 ml Balance -310 ml ROMINA LAM MD Feb 24, 2021 08:38
[2021-02-24 09:03] LABS: MEAN CORPUSCULAR HEMOGLOBIN 27.7 pg (27.0-33.0); MEAN CORPUSCULAR HGB CONC 33.3 g/dl (32.0-36.5); MEAN CORPUSCULAR VOLUME 83.1 fl (80.0-96.0); PLATELET COUNT, AUTOMATED 278 10^3/uL (150-450); RED BLOOD COUNT 3.97 10^6/uL (4.30-6.10); WHITE BLOOD COUNT 10.8 10^3/uL (4.0-10.0)
[2021-02-24 09:27] LABS: BLOOD UREA NITROGEN 3 MG/DL (7-18); CALCIUM LEVEL 8.3 MG/DL (8.5-10.1); CARBON DIOXIDE LEVEL 24 MEQ/L (21-32); CHLORIDE LEVEL 107 MEQ/L (98-107); CREATININE FOR GFR 0.56 MG/DL (0.70-1.30); GLOMERULAR FILTRATION RATE > 60.0 (>60); GLUCOSE, FASTING 120 MG/DL (70-100); POTASSIUM SERUM 3.5 MEQ/L (3.5-5.1); SODIUM LEVEL 139 MEQ/L (136-145)
[2021-02-24 10:00] VITALS: BP 124/84
[2021-02-24] MEDS: NS 1,000 ML IV SCH ×2 (10:07→11:12)
[2021-02-24] MEDS: traMADol 50 MG TAB PO PRN ×2 (11:12→20:03)
--- NOTE | 2021-02-24 13:15 | IPNPDOC ---
Subjective Date Seen The patient was seen on 02/24/21. Subjective Chief Complaint/HPI Mr. Kelly is a 35 year old male with spina bifida and paraplegic who is here with sepsis secondary to UTI. Patient had right ureteral stent removal on 02/23/21. This morning, he still has right flank pain. Denies chest pain or dyspnea. Added on Tramadol to his pain regimen. Patient did not want Toradol as it made his stomach upset Objective Physical Examination General Exam: Positive: Alert, Cooperative Eye Exam: Negative: Sclera icteric ENT Exam: Positive: Atraumatic Neck Exam: Positive: Supple Chest Exam: Positive: Clear to auscultation; Negative: Rales, Rhonchi, Wheezing Heart Exam: Positive: Rate Normal, Regular Rhythm Abdomen Exam: Positive: Normal bowel sounds, Soft; Negative: Tenderness Extremity Exam: Negative: Edema Neuro Exam: Positive: Other (Paraplegic, unable to move legs bilaterally) Psych Exam: Positive: Mental status NL, Mood NL Assessment /Plan Assessment Mr. Kelly is a 35 year old male with spina bifida and paraplegic who is here with sepsis secondary to UTI. Patient had right ureteral stent removal on 02/23/21. Urology following, recommendations appreciated Plan/VTE VTE Prophylaxis Ordered?: Yes Plan 1. Sepsis secondary to UTI -Patient had leukocytosis, fever, and tachycardia -Patient has history of pyelonephritis with pseudomonas -Continue with Zosyn day 1 (stent removal on 02/23/21) -Urology following recommendations appreciated 2. Diarrhea -C.diff negative 3. Nicotine use disorder -Continue with nicotine replacement therapy 4. History of hydrocephalus s/p ELECTRICAL CONSTRUCTION PROJECT MANAGER shunt and spina bifida/paraplegia -Supportive care 5. DVT ppx -Heparin Subq Disposition: Pending culture results VS, I&O, 24H, Fishbone Vital Signs/I&O Vital Signs Date Time Temp Pulse Resp B/P (MAP) Pulse Ox O2 Delivery O2 Flow Rate FiO2 02/24/21 13:05 16 02/24/21 11:12 Room Air 02/24/21 10:00 98.9 87 124/84 (97) 98 I&O- Last 24 Hours up to 6 AM 02/24/21 06:00 Intake Total 1690 ml Output Total 1850 ml Balance -160 ml Laboratory Data 24H LABS Laboratory Tests 2 02/23/21 19:04: Clostridium difficile [id number] PRESUMPTIVE NEGATIVE, Clostridium difficile Toxin (PCR) NEGATIVE 02/23/21 19:10: Urine Color YELLOW, Urine Appearance HAZY, Urine pH 6.0, Urine Specific [place] 1.014, Urine Protein 1+H, Urine Glucose (UA) NEGATIVE, Urine Ketones NEGATIVE, Urine Blood 2+H, Urine Nitrite NEGATIVE, Urine Bilirubin NEGATIVE, Urine Urobilinogen 0.2, Urine Leukocyte Esterase 3+H, Urine WBC (Auto) 48H, Urine RBC (Auto) 42H, Urine Hyaline Casts (Auto) 0, Urine Bacteria (Auto) NEGATIVE, Urine Squamous Epithelial Cells 0, Urine Mucus (Auto) SMALL, Urine Sperm (Auto) 02/24/21 08:30: Nucleated Red Blood Cells % (auto) 0.0, Anion Gap 8, Glomerular Filtration Rate > 60.0, Calcium Level 8.3L CBC/BMP Laboratory Tests 02/24/21 08:30 Microbiology Microbiology 02/23/21 Urine Culture, Received Pending 02/22/21 Blood Culture - Preliminary, Resulted No growth after 24 hours . All specim... 02/22/21 Blood Culture - Preliminary, Resulted No growth after 24 hours . All specim... 02/22/21 Urine Culture - Final, Complete AMMON GARG DO Feb 24, 2021 13:15
[2021-02-24 14:00] VITALS: BP 130/91
[2021-02-24 18:00] VITALS: BP 132/92
[2021-02-24 22:00] VITALS: BP 136/89
[2021-02-25] MEDS: PIPERACILLIN/TAZOBACTAM SOD 3.375 GM in D5W MINI-BAG PLUS 50 ML IV SCH ×4 (01:26→20:14)
[2021-02-25] MEDS: MORPHINE 4 MG/ML 1ML VIAL/SYRINGE (J2270) IV PRN ×5 (01:26→18:32)
[2021-02-25 06:00] VITALS: BP 135/74
[2021-02-25 06:04] LABS: HEMATOCRIT 33.5 % (42.0-52.0); HEMOGLOBIN 11.2 g/dl (13.5-17.5); MEAN CORPUSCULAR HEMOGLOBIN 27.5 pg (27.0-33.0); MEAN CORPUSCULAR HGB CONC 33.4 g/dl (32.0-36.5); MEAN CORPUSCULAR VOLUME 82.1 fl (80.0-96.0); PLATELET COUNT, AUTOMATED 310 10^3/uL (150-450); RED BLOOD COUNT 4.08 10^6/uL (4.30-6.10); WHITE BLOOD COUNT 8.6 10^3/uL (4.0-10.0)
[2021-02-25 06:33] LABS: BLOOD UREA NITROGEN 4 MG/DL (7-18); CALCIUM LEVEL 8.2 MG/DL (8.5-10.1); CARBON DIOXIDE LEVEL 26 MEQ/L (21-32); CHLORIDE LEVEL 106 MEQ/L (98-107); CREATININE FOR GFR 0.48 MG/DL (0.70-1.30); GLOMERULAR FILTRATION RATE > 60.0 (>60); GLUCOSE, FASTING 89 MG/DL (70-100); POTASSIUM SERUM 4.2 MEQ/L (3.5-5.1); SODIUM LEVEL 137 MEQ/L (136-145)
[2021-02-25] MEDS: NICOTINE 14 MG/24 HR TRANSDERMAL TD SCH (09:00)
[2021-02-25] MEDS: HEPARIN SOD (PORCINE) 5000UNITS/ML 1ML VIAL/SYRINGE SC SCH ×2 (09:00→20:09)
[2021-02-25] MEDS: PERCOCET 5MG/325MG TAB PO PRN ×3 (09:38→22:11)
--- NOTE | 2021-02-25 11:51 | IPNPDOC ---
Subjective Date Seen The patient was seen on 02/25/21. Subjective Chief Complaint/HPI Mr. Kelly is a 35 year old male with spina bifida and paraplegic who is here with sepsis secondary to UTI. Patient had right ureteral stent removal on 02/23/21. This morning, the pain is a little better, but pain is still there. The tramadol did not help. Will try Percocet instead. Otherwise, no chest pain or dyspnea. Objective Physical Examination General Exam: Positive: Alert, Cooperative Eye Exam: Negative: Sclera icteric ENT Exam: Positive: Atraumatic Neck Exam: Positive: Supple Chest Exam: Positive: Clear to auscultation; Negative: Rales, Rhonchi, Wheezing Heart Exam: Positive: Rate Normal, Regular Rhythm Abdomen Exam: Positive: Normal bowel sounds, Soft; Negative: Tenderness Extremity Exam: Negative: Edema Neuro Exam: Positive: Other (Paraplegic, unable to move legs bilaterally) Psych Exam: Positive: Mental status NL, Mood NL Assessment /Plan Assessment Mr. Kelly is a 35 year old male with spina bifida and paraplegic who is here with sepsis secondary to UTI. Patient had right ureteral stent removal on 02/23/21. Urology following, recommendations appreciated. Otherwise working on pain control. Plan/VTE VTE Prophylaxis Ordered?: Yes Plan 1. Sepsis secondary to UTI -Patient had leukocytosis, fever, and tachycardia -Patient has history of pyelonephritis with pseudomonas -Continue with Zosyn day 2 (stent removal on 02/23/21) -Will check an ESR and CRP tomorrow -Urology following recommendations appreciated 2. Diarrhea -C.diff negative 3. Right sided flank pain -Persistent pain, but slightly improved. Still requiring IV morphine -Continue acetaminophen -Added Percocet 4. Nicotine use disorder -Continue with nicotine replacement therapy 5. History of hydrocephalus s/p DEPUTY DIRECTOR shunt and spina bifida/paraplegia -Supportive care 6. DVT ppx -Heparin Subq Disposition: Pending pain control VS, I&O, 24H, Fishbone Vital Signs/I&O Vital Signs Date Time Temp Pulse Resp B/P (MAP) Pulse Ox O2 Delivery O2 Flow Rate FiO2 02/25/21 10:38 18 02/25/21 06:00 97.9 90 135/74 (94) 99 Room Air I&O- Last 24 Hours up to 6 AM 02/25/21 06:00 Intake Total 2830 ml Output Total 3740 ml Balance -910 ml Laboratory Data 24H LABS Laboratory Tests 2 02/25/21 05:46: Nucleated Red Blood Cells % (auto) 0.0, Anion Gap 5L, Glomerular Filtration Rate > 60.0, Calcium Level 8.2L CBC/BMP Laboratory Tests 02/25/21 05:46 Microbiology Microbiology 02/23/21 Urine Culture - Final, Complete Yeast Like Organism 02/22/21 Blood Culture - Preliminary, Resulted No Growth after 48 hours. All Specime... 02/22/21 Blood Culture - Preliminary, Resulted No Growth after 48 hours. All Specime... 02/22/21 Urine Culture - Final, Complete AMMON GARG DO Feb 25, 2021 11:51
[2021-02-25 14:00] VITALS: BP 140/89
--- NOTE | 2021-02-25 15:54 | IPNPDOC ---
Text Note Date of Service The patient was seen on 02/25/21. NOTE Patient's MAXIMUM TEMPERATURE was 99.6 last night and his urine culture did grow some yeast-like organism. His white blood count is down to normal. He is still complaining of right-sided pain. Physical exam: He is lying in a hospital bed alert and oriented 3. His heart is regular and his lungs are clear. He has no cyanosis clubbing or edema. His abdomen still has some mild tenderness especially on the right side with some right CVA tenderness. Plan: -Patient can remove the Meeks catheter and restart CIC at his convenience but is not a problem if it like to keep the catheter in for a while longer -No further urologic intervention is recommended at this time and he is just to follow up with his urologist in [place] after discharge Please call us if there is anything further that we can assist with. VS,Fishbone, I+O VS, Fishbone, I+O Laboratory Tests 02/25/21 05:46 Vital Signs Date Time Temp Pulse Resp B/P (MAP) Pulse Ox O2 Delivery O2 Flow Rate FiO2 02/25/21 14:44 20 02/25/21 14:00 98.0 84 140/89 (106) 98 Room Air I&O- Last 24 Hours up to 6 AM 02/25/21 06:00 Intake Total 2830 ml Output Total 3740 ml Balance -910 ml ROMINA LAM MD Feb 25, 2021 15:54
[2021-02-25 20:22] VITALS: BP 123/78
[2021-02-26] MEDS: MORPHINE 4 MG/ML 1ML VIAL/SYRINGE (J2270) IV PRN ×5 (00:10→20:30)
[2021-02-26] MEDS: PIPERACILLIN/TAZOBACTAM SOD 3.375 GM in D5W MINI-BAG PLUS 50 ML IV SCH ×4 (02:54→20:18)
[2021-02-26] MEDS: PERCOCET 5MG/325MG TAB PO PRN ×3 (04:23→18:58)
[2021-02-26 06:00] VITALS: BP 124/81
[2021-02-26] MEDS: NICOTINE 14 MG/24 HR TRANSDERMAL TD SCH (08:50)
[2021-02-26] MEDS: HEPARIN SOD (PORCINE) 5000UNITS/ML 1ML VIAL/SYRINGE SC SCH ×2 (08:50→20:18)
[2021-02-26 09:17] LABS: HEMATOCRIT 40.5 % (42.0-52.0); MEAN CORPUSCULAR HEMOGLOBIN 27.2 pg (27.0-33.0); MEAN CORPUSCULAR HGB CONC 33.1 g/dl (32.0-36.5); MEAN CORPUSCULAR VOLUME 82.3 fl (80.0-96.0); PLATELET COUNT, AUTOMATED 404 10^3/uL (150-450); RED BLOOD COUNT 4.92 10^6/uL (4.30-6.10); WHITE BLOOD COUNT 7.3 10^3/uL (4.0-10.0)
[2021-02-26 09:18] LABS: HEMOGLOBIN 13.4 g/dl (13.5-17.5)
[2021-02-26 09:29] LABS: ERYTHROCYTE SEDIMENTATION RATE 51 mm/hr (0-15)
[2021-02-26] MEDS ORDERED: ISOVUE-370 76% 100ML VIAL As Ordered ONE (09:41)
[2021-02-26 09:46] LABS: BLOOD UREA NITROGEN 7 MG/DL (7-18); CALCIUM LEVEL 9.4 MG/DL (8.5-10.1); CARBON DIOXIDE LEVEL 26 MEQ/L (21-32); CHLORIDE LEVEL 103 MEQ/L (98-107); CREATININE FOR GFR 0.64 MG/DL (0.70-1.30); GLOMERULAR FILTRATION RATE > 60.0 (>60); GLUCOSE, FASTING 118 MG/DL (70-100); POTASSIUM SERUM 5.5 MEQ/L (3.5-5.1); SODIUM LEVEL 137 MEQ/L (136-145)
[2021-02-26] MEDS ORDERED: SOD POLYSTYRENE SULFONATE SUSP 15 GM/60 ML UD PO ONE (12:00)
--- NOTE | 2021-02-26 12:29 | REP ---
INDICATION: Abd pain, cholecystitis?, nephrolithiasis?. COMPARISON: Abdomen/pelvis CT dated 02/22/2021. TECHNIQUE: Abdomen/pelvis CT with IV contrast, without bowel contrast. FINDINGS: The previous right ureteral stent has been removed. There is no hydronephrosis. There is slight dilatation of the right mid ureter measuring up to 11 mm in diameter, however there is no dilatation of the proximal right ureter or the distal right ureter. This may represent ureteral peristalsis. There are no right ureteral calculi. The 3 punctate right renal upper pole calculi are unchanged and are again nonobstructive. There are no other renal calculi. There is no perinephric stranding. There are focal areas of renal cortical scarring in the upper pole and in the lower pole. Retrospect this is unchanged and may represent sequela of pyelonephritis. There is no CT evidence of acute pyelonephritis. There is no right renal mass or cyst. 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 The previous wall thickening of the transverse colon, descending colon and sigmoid colon has resolved. No evidence of colitis on the current study. The distal portion of a LOG SORTER shunt is again identified and is unchanged without evidence of kink or mass/cyst at the distal tip. The visualized lung fang are unremarkable. The hepatic parenchyma, gallbladder, pancreas and spleen are unremarkable. Stomach is distended with ingested material. There is no bowel distention or obstruction. The adrenals are unremarkable. The abdominal aorta is unremarkable. There is no periaortic adenopathy or mass. There is no mesenteric adenopathy or mass. Pelvis: There is a Meeks catheter in the bladder as an interval change. There is no pelvic ascites or adenopathy. The pelvic bowel loops are unremarkable. There is internal fixation of the right hip as previously. There is resorption of the right femoral head and the neck of the right femur articulates with the supra-acetabular zone of the pelvis. This is unchanged. IMPRESSION: There is no evidence of cholecystitis or cholelithiasis. The pancreas is unremarkable. There are 3 tiny right renal upper pole punctate calcifications that are nonobstructive and are unchanged from the prior study. There has been interim removal of the right ureteral stent. There is no hydronephrosis. There is dilatation of the right mid ureter but there is no dilatation of the right proximal ureter or right distal ureter. This may represent peristalsis. There is no perinephric stranding. There are focal zones of atrophy/scarring in the right renal upper pole right renal lower pole, unchanged. No evidence of acute pyelonephritis. No renal mass or cyst. Left kidney is absent as previously. There is no bowel distention or obstruction. The previous colonic wall thickening has resolved. There is no CT evidence of colitis on the current study. There is a small volume of ascites in the pelvis on the left. The distal portion of a LOG SORTER shunt is again identified, unchanged without evidence of kinking or mass/cyst at the distal tip. Findings in the right hip as described, unchanged. <Electronically signed by Lanre Larson > 02/26/21 0709
[2021-02-26 14:00] VITALS: BP 122/80
[2021-02-26 15:38] LABS: BLOOD UREA NITROGEN 9 MG/DL (7-18); CALCIUM LEVEL 9.1 MG/DL (8.5-10.1); CARBON DIOXIDE LEVEL 30 MEQ/L (21-32); CHLORIDE LEVEL 102 MEQ/L (98-107); CREATININE FOR GFR 0.66 MG/DL (0.70-1.30); GLOMERULAR FILTRATION RATE > 60.0 (>60); GLUCOSE, FASTING 86 MG/DL (70-100); SODIUM LEVEL 136 MEQ/L (136-145)
--- NOTE | 2021-02-26 18:01 | IPNPDOC ---
Subjective Date Seen The patient was seen on 02/26/21. Subjective Chief Complaint/HPI Mr. Kelly is a 35 year old male with spina bifida and paraplegic who is here with sepsis secondary to UTI. Patient was seen this morning. Still has abdominal pain which radiates around to his right upper quadrant of his abdomen. He has some tenderness there. He was concerned for acute cholecystitis. Ordered for CT abd/pelvis with IV contrast. No acute cholecystitis. No acute pyelonephritis. Colitis seen in previous CT has now resolved. Objective Physical Examination General Exam: Positive: Alert, Cooperative Eye Exam: Negative: Sclera icteric ENT Exam: Positive: Atraumatic Neck Exam: Positive: Supple Chest Exam: Positive: Clear to auscultation; Negative: Rales, Rhonchi, Wheezing Heart Exam: Positive: Rate Normal, Regular Rhythm Abdomen Exam: Positive: Normal bowel sounds, Soft; Negative: Tenderness Extremity Exam: Negative: Edema Neuro Exam: Positive: Other (Paraplegic, unable to move legs bilaterally) Psych Exam: Positive: Mental status NL, Mood NL Assessment /Plan Assessment Mr. Kelly is a 35 year old male with spina bifida and paraplegic who is here with sepsis secondary to UTI. Patient had right ureteral stent removal on 02/23/21. Urology following, recommendations appreciated. Urine culture grew a few fungi, but no bacteria. Patient had already gotten IV antibiotics when they took the sample (the first urine culture was contaminated). Will continue IV antibiotics. Otherwise working on pain control. Plan/VTE VTE Prophylaxis Ordered?: Yes Plan 1. Sepsis secondary to UTI -Patient had leukocytosis, fever, and tachycardia -Patient has history of pyelonephritis with pseudomonas -Urine culture negative (fungi most likely contaminant), but patient had already received IV antibiotics at that time. Will continue with IV antibiotics -Continue with Zosyn day 3 (stent removal on 02/23/21) 2. Diarrhea -C.diff negative 3. Right sided flank pain -Persistent pain, but slightly improved. Still requiring IV morphine -Continue acetaminophen -Continue Percocet (which helped) 4. Nicotine use disorder -Continue with nicotine replacement therapy 5. 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 DVT ppx -Heparin Subq Disposition: Pending pain control VS, I&O, 24H, Fishbone Vital Signs/I&O Vital Signs Date Time Temp Pulse Resp B/P (MAP) Pulse Ox O2 Delivery O2 Flow Rate FiO2 02/26/21 16:29 16 02/26/21 14:00 97.8 100 122/80 (94) 96 Room Air I&O- Last 24 Hours up to 6 AM 02/26/21 05:59 Intake Total 820 ml Output Total 2825 ml Balance -2005 ml Laboratory Data 24H LABS Laboratory Tests 2 02/26/21 08:45: Nucleated Red Blood Cells % (auto) 0.0, Erythrocyte Sedimentation Rate 51H, Anion Gap 8, Glomerular Filtration Rate > 60.0, Calcium Level 9.4, C-Reactive Protein, Quantitative 12.50H 02/26/21 14:50: Anion Gap 4L, Glomerular Filtration Rate > 60.0, Calcium Level 9.1 CBC/BMP Laboratory Tests 02/26/21 08:45 02/26/21 14:50 Microbiology Microbiology 02/23/21 Urine Culture - Final, Complete Yeast Like Organism 02/22/21 Blood Culture - Preliminary, Resulted No Growth after 72 hours. All specime... 02/22/21 Blood Culture - Preliminary, Resulted No Growth after 72 hours. All specime... 02/22/21 Urine Culture - Final, Complete AMMON GARG DO Feb 26, 2021 18:01
[2021-02-26 22:00] VITALS: BP 111/79
[2021-02-27] MEDS: PIPERACILLIN/TAZOBACTAM SOD 3.375 GM in D5W MINI-BAG PLUS 50 ML IV SCH ×4 (01:51→20:10)
[2021-02-27] MEDS: MORPHINE 4 MG/ML 1ML VIAL/SYRINGE (J2270) IV PRN ×2 (01:52→06:59)
[2021-02-27 06:00] VITALS: BP 121/82
[2021-02-27 06:05] LABS: HEMATOCRIT 38.5 % (42.0-52.0); HEMOGLOBIN 12.8 g/dl (13.5-17.5); MEAN CORPUSCULAR HEMOGLOBIN 27.3 pg (27.0-33.0); MEAN CORPUSCULAR HGB CONC 33.2 g/dl (32.0-36.5); MEAN CORPUSCULAR VOLUME 82.1 fl (80.0-96.0); PLATELET COUNT, AUTOMATED 471 10^3/uL (150-450); RED BLOOD COUNT 4.69 10^6/uL (4.30-6.10); WHITE BLOOD COUNT 9.2 10^3/uL (4.0-10.0)
[2021-02-27 06:31] LABS: BLOOD UREA NITROGEN 12 MG/DL (7-18); CALCIUM LEVEL 9.3 MG/DL (8.5-10.1); CARBON DIOXIDE LEVEL 27 MEQ/L (21-32); CHLORIDE LEVEL 104 MEQ/L (98-107); CREATININE FOR GFR 0.63 MG/DL (0.70-1.30); GLOMERULAR FILTRATION RATE > 60.0 (>60); GLUCOSE, FASTING 104 MG/DL (70-100); SODIUM LEVEL 136 MEQ/L (136-145)
[2021-02-27] MEDS: ONDANSETRON 4MG/2ML VIAL IV PRN (07:05)
[2021-02-27] MEDS ORDERED: ACETAMINOPHEN TAB 650MG DOSE (2X325MG) PO PRN (08:15)
[2021-02-27] MEDS ORDERED: ACETAMINOPHEN 325 MG TAB PO PRN (08:19)
[2021-02-27] MEDS: HEPARIN SOD (PORCINE) 5000UNITS/ML 1ML VIAL/SYRINGE SC SCH ×2 (08:31→20:12)
[2021-02-27] MEDS ORDERED: ACETAMINOPHEN TAB 650MG DOSE (2X325MG) PO SCH (09:00)
[2021-02-27] MEDS: PERCOCET 5MG/325MG TAB PO PRN ×3 (09:09→21:49)
--- NOTE | 2021-02-27 10:02 | IPNPDOC ---
Subjective Date Seen The patient was seen on 02/27/21. Subjective Chief Complaint/HPI Mr. Kelly is a 35 year old male with spina bifida and paraplegic who is here with sepsis secondary to UTI. This morning, his pain is improved, but still there. He required fewer doses of the IV morphine. He is willing to try switching to an oral regimen. Otherwise, denies chest pain or dyspnea. Objective Physical Examination General Exam: Positive: Alert, Cooperative Eye Exam: Negative: Sclera icteric ENT Exam: Positive: Atraumatic Neck Exam: Positive: Supple Chest Exam: Positive: Clear to auscultation; Negative: Rales, Rhonchi, Wheezing Heart Exam: Positive: Tachycardic, Regular Rhythm Abdomen Exam: Positive: Normal bowel sounds, Tenderness Extremity Exam: Negative: Edema Neuro Exam: Positive: Other (Paraplegic) Psych Exam: Positive: Mental status NL, Mood NL Assessment /Plan Assessment Mr. Kelly is a 35 year old male with spina bifida and paraplegic who is here with sepsis secondary to UTI. Patient had right ureteral stent removal on 02/23/21. Urology following, recommendations appreciated. Urine culture grew a few fungi, but no bacteria. Patient had already gotten IV antibiotics when they took the sample (the first urine culture was contaminated). Will continue IV antibiotics. Otherwise working on pain control. Plan/VTE VTE Prophylaxis Ordered?: Yes Plan 1. Sepsis secondary to UTI -Patient had leukocytosis, fever, and tachycardia -Patient has history of pyelonephritis with pseudomonas -Urine culture negative (fungi most likely contaminant), but patient had already received IV antibiotics at that time. Will continue with IV antibiotics -Continue with Zosyn day 4 (stent removal on 02/23/21) 2. Diarrhea -C.diff negative 3. Right sided flank pain -Continue acetaminophen -Continue Percocet -Switched for morphine to oxycodone IR 4. Nicotine use disorder -Has been refusing the nicotine patch -Discontinue nicotine patch 5. 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 DVT ppx -Heparin Subq Disposition: Pending pain control VS, I&O, 24H, Fishbone Vital Signs/I&O Vital Signs Date Time Temp Pulse Resp B/P (MAP) Pulse Ox O2 Delivery O2 Flow Rate FiO2 02/27/21 09:09 16 02/27/21 06:59 Room Air 02/27/21 06:00 98.1 96 121/82 (95) 98 I&O- Last 24 Hours up to 6 AM 02/27/21 06:00 Intake Total 2630 ml Output Total 3950 ml Balance -1320 ml Laboratory Data 24H LABS Laboratory Tests 2 02/26/21 14:50: Anion Gap 4L, Glomerular Filtration Rate > 60.0, Calcium Level 9.1 02/27/21 05:38: Anion Gap 5L, Glomerular Filtration Rate > 60.0, Calcium Level 9.3, Nucleated Red Blood Cells % (auto) 0.0 CBC/BMP Laboratory Tests 02/26/21 14:50 02/27/21 05:38 Microbiology Microbiology 02/23/21 Urine Culture - Final, Complete Yeast Like Organism 02/22/21 Blood Culture - Preliminary, Resulted No Growth after 72 hours. All specime... 02/22/21 Blood Culture - Preliminary, Resulted No Growth after 72 hours. All specime... 02/22/21 Urine Culture - Final, Complete AMMON GARG DO Feb 27, 2021 10:02
--- NOTE | 2021-02-27 10:48 | REP ---
INDICATION: Right kidney stone (had left nephrectomy). COMPARISON: None. TECHNIQUE: 2D ultrasound FINDINGS: The left kidney has been removed The right kidney measures 11.6 x 5.6 x 5.1 cm. The echo pattern is normal. Calculi are noted in the upper pole measuring 4 mm and 3 mm in diameter. There is no hydronephrosis, mass or cyst. Meeks catheter noted in bladder which is collapsed. IMPRESSION: Two small calculi upper pole right kidney. No hydronephrosis or hydroureter. Left kidney has been removed. <Electronically signed by Kamaljit Garrett > 02/27/21 1044
[2021-02-27] MEDS: oxyCODONE 5MG TAB PO PRN ×2 (12:14→18:44)
[2021-02-27 14:00] VITALS: BP 130/75
[2021-02-27 22:00] VITALS: BP 123/69
[2021-02-28] MEDS: oxyCODONE 5MG TAB PO PRN ×2 (01:17→09:17)
[2021-02-28] MEDS: PIPERACILLIN/TAZOBACTAM SOD 3.375 GM in D5W MINI-BAG PLUS 50 ML IV SCH ×2 (02:21→09:13)
--- NOTE | 2021-02-28 04:13 | IPNPDOC ---
Text Note Date of Service The patient was seen on 02/28/21. NOTE Notified regarding patient's right stent site. Patient seen at bedside no acute distress. Site does not look overtly infected. Patient has some vague complaints of tenderness all over his flank-which he describes as not new. Patient had stent placed February 10-only about 3 weeks out he reports that there was no stitching completed only Band-Aid. Encourage urology consultati on/follow-up. VS,Janiee, I+O VS, [place], I+O Laboratory Tests 02/27/21 05:38 Vital Signs Date Time Temp Pulse Resp B/P (MAP) Pulse Ox O2 Delivery O2 Flow Rate FiO2 02/28/21 01:47 16 Room Air 02/27/21 22:00 97.8 120 123/69 (87) 95 I&O- Last 24 Hours up to 6 AM 02/28/21 05:59 Intake Total 1570 ml Output Total 1475 ml Balance 95 ml DEBBIE RÍOS NP Feb 28, 2021 04:13
[2021-02-28 05:49] LABS: HEMATOCRIT 37.1 % (42.0-52.0); HEMOGLOBIN 12.2 g/dl (13.5-17.5); MEAN CORPUSCULAR HEMOGLOBIN 27.5 pg (27.0-33.0); MEAN CORPUSCULAR HGB CONC 32.9 g/dl (32.0-36.5); MEAN CORPUSCULAR VOLUME 83.7 fl (80.0-96.0); PLATELET COUNT, AUTOMATED 499 10^3/uL (150-450); RED BLOOD COUNT 4.43 10^6/uL (4.30-6.10); WHITE BLOOD COUNT 10.5 10^3/uL (4.0-10.0)
[2021-02-28 06:00] VITALS: BP 119/70
[2021-02-28 06:08] LABS: BLOOD UREA NITROGEN 16 MG/DL (7-18); CALCIUM LEVEL 9.2 MG/DL (8.5-10.1); CARBON DIOXIDE LEVEL 28 MEQ/L (21-32); CHLORIDE LEVEL 103 MEQ/L (98-107); CREATININE FOR GFR 0.66 MG/DL (0.70-1.30); GLOMERULAR FILTRATION RATE > 60.0 (>60); GLUCOSE, FASTING 90 MG/DL (70-100); POTASSIUM SERUM 4.7 MEQ/L (3.5-5.1); SODIUM LEVEL 138 MEQ/L (136-145)
[2021-02-28] MEDS: PERCOCET 5MG/325MG TAB PO PRN (06:55)
[2021-02-28] MEDS ORDERED: LEVO750T14 PO ×2 (08:42→08:45)
[2021-02-28] MEDS ORDERED: ACE65ERTAB PO ×2 (08:42→08:45)
[2021-02-28] MEDS ORDERED: OXYC10TA12 PO ×2 (08:42→11:31)
[2021-02-28] MEDS: HEPARIN SOD (PORCINE) 5000UNITS/ML 1ML VIAL/SYRINGE SC SCH (09:00)
--- NOTE | 2021-02-28 17:36 | DS.PDOC ---
Discharge Summary General Date of Admission Feb 22, 2021 at 16:41 Date of Discharge February 28, 2021 Specialist/Consultants [facility], Dr. Torer Discharge Summary PROCEDURES PERFORMED DURING STAY: Cystoscopy and right stent removal, Meeks catheter placement on 02/23/[address] Torre ADMITTING DIAGNOSES: 1. Sepsis secondary to UTI 2. Paraplegia secondary to spina bifida 3. 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 Nicotine abuse DISCHARGE DIAGNOSES: 1. Sepsis secondary to UTI 2. Paraplegia secondary to spina bifida 3. 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 Nicotine abuse COMPLICATIONS/CHIEF COMPLAINT: Sepsis Due To Urinary Tract Infection. HISTORY OF PRESENT ILLNESS: Copied from admitting attendings H&P " 35-year-old gentleman with past medical history of paraplegia secondary to spina bifida, wheelchair dependent, and recurrent urinary tract infections with recent right ureteral stent placement on March 13 for nephrolithiasis, presents for one day history of right flank pain. . He describes his flank pain is constant, radiating to his groin rated as 8-9 out of 10, worsening with movement. . He also notes fevers and chills at home with a measured temperature of 102.9, and nausea. The emergency room. He continues to note right flank pain and tenderness with nausea. He denies shortness of breath, chest pain, headaches, changes in vision, vomiting or sick contacts. " HOSPITAL COURSE: Urology was consulted and patient was taken to the OR for removal of right stent. Patient was put on Zosyn for antibiotics. Patient's leukocytosis resolved and patient's last fever was on 02/23/2021, the day of the procedure. After procedure, patient continued to have flank pain and required IV morphine to control the pain. Pain medications were escalated. Patient's pain was controlled with oxycodone. Otherwise urine culture returned dem onstrating 30,000 yeastlike organisms which is most likely contaminant. Patient was kept on Zosyn for broad-spectrum coverage and transitioned to PO Augmentin. Today patient felt better and felt ready for home. Patient was discharged home today. DISCHARGE MEDICATIONS: Please see below. ALLERGIES: Please see below. PHYSICAL EXAMINATION ON DISCHARGE: VITAL SIGNS: Please see below. GENERAL: Comfortable, in no apparent distress. HEENT: Sclera clear. RESPIRATORY: Lungs clear to auscultation bilaterally, no rales, wheeze or rhonchi. CARDIOVASCULAR: Regular rate and rhythm. ABDOMEN: Soft. Normal bowel sounds. MUSCLE SKELETAL: Paraplegic PSYCHOLOGICAL: Normal mood and affect LABORATORY DATA: Please see below. IMAGING: Radiologist interpretation CT abdomen pelvis with IV contrast only There is a right ureteral stent with the proximal and distal pigtails in satisfactory positions. There is no right hydronephrosis. There are 3 punctate renal calcifications in the right renal upper pole, nonobstructive. There are no right renal masses or cysts. The left kidney is no longer identified compatible with interim left nephrectomy. Wall thickening of the colonic hepatic flexure, transverse colon, descending colon and sigmoid colon, nonspecific, but compatible with infectious versus inflammatory colitis in the appropriate clinical setting. There is a small volume of ascites in the pelvis. Repeat CT abdomen pelvis with IV contrast only There is no evidence of cholecystitis or cholelithiasis. The pancreas is unremarkable. There are 3 tiny right renal upper pole punctate calcifications that are nonobstructive and are unchanged from the prior study. There has been interim removal of the right ureteral stent. There is no hydronephrosis. There is dilatation of the right mid ureter but there is no dilatation of the right proximal ureter or right distal ureter. This may represent peristalsis. There is no perinephric stranding. There are focal zones of atrophy/scarring in the right renal upper pole right renal lower pole, unchanged. No evidence of acute pyelonephritis. No renal mass or cyst. Left kidney is absent as previously. There is no bowel distention or obstruction. The previous colonic wall thickening has resolved. There is no CT evidence of colitis on the current study. There is a small volume of ascites in the pelvis on the left. The distal portion of a [employer] shunt is again identified, unchanged without evidence of kinking or mass/cyst at the distal tip. Findings in the right hip as described, unchanged. Renal ultrasound Two small calculi upper pole right kidney. No hydronephrosis or hydroureter. Left kidney has been removed. PROGNOSIS: Good ACTIVITY: As tolerated. DIET: As tolerated DISCHARGE PLAN: Home DISPOSITION: 01 Home, Self-Care. DISCHARGE INSTRUCTIONS: 1. Please follow-up with your PCP in 1 week 2. Please follow-up with your urologist in 1 week DISCHARGE CONDITION: Stable. Total time spent on discharge planning, discharge summary, medication reconciliation: 40 minutes Vital Signs/I&Os Vital Signs Date Time Temp Pulse Resp B/P (MAP) Pulse Ox O2 Delivery O2 Flow Rate FiO2 02/28/21 09:47 18 Room Air 02/28/21 06:00 97.5 101 119/70 (86) 99 I&O- Last 24 Hours up to 6 AM 02/28/21 06:00 Intake Total 2070 ml Output Total 1175 ml Balance 895 ml Laboratory Data Labs 24H Laboratory Tests 2 02/28/21 05:24: Nucleated Red Blood Cells % (auto) 0.0, Anion Gap 7L, Glomerular Filtration Rate > 60.0, Calcium Level 9.2 CBC/BMP Laboratory Tests 02/28/21 05:24 Microbiology Microbiology 02/23/21 Urine Culture - Final, Complete Yeast Like Organism 02/22/21 Blood Culture - Final, Complete NO GROWTH AFTER 5 DAYS 02/22/21 Blood Culture - Final, Complete NO GROWTH AFTER 5 DAYS 02/22/21 Urine Culture - Final, Complete Discharge Medications Scheduled Methenamine Hippurate (Methenamine Hippurate) 1 Gm Tablet, 1 GM PO BID, (Reported) levoFLOXacin (levoFLOXacin) 750 Mg Tablet, 750 MG PO DAILY Scheduled PRN Acetaminophen (Acetaminophen ER) 650 Mg Tablet.er, 650 MG PO Q6HP PRN for pain Ibuprofen (Ibu-200) 200 Mg Tablet, 400 MG PO Q6H PRN for PAIN LEVEL 1-6, (Reported) Oxycodone HCl (Oxycodone HCl) 10 Mg Tablet, 10 MG PO Q6HP PRN for pain Allergies Coded Allergies: cefepime (Verified Allergy, Unknown, ELIAS SYNDROME, 02/22/21) latex (Verified Allergy, Unknown, 02/22/21) meperidine (Verified Allergy, Unknown, RASH AT IV SITE, 02/22/21) vancomycin (Verified Allergy, Unknown, ELIAS SYNDROME, 02/22/21) AMMON GARG DO Feb 28, 2021 17:36
== END 2021-02-28 11:35 | disposition home or self-care (01) | DRG 872 ==
LOC: M ED 12:11 → M ED INP 16:41 → ENRESERV 02-23 00:09 → M MSPAV 02-23 01:05
PROVIDERS: ADMIT Internal Medicine; ATTEND Internal Medicine
PROC: 0TP98DZ Removal of Intraluminal Device from Ureter, Via Natural or Artificial Opening Endoscopic (ICD-10-PCS; principal; 2021-02-23 15:45)
DX: A41.9 Sepsis, unspecified organism (principal); N39.0 Urinary tract infection, site not specified; Q05.4 Unspecified spina bifida with hydrocephalus; G82.20 Paraplegia, unspecified; N31.9 Neuromuscular dysfunction of bladder, unspecified; F17.200 Nicotine dependence, unspecified, uncomplicated; Z91.040 Latex allergy status; Z88.8 Allergy status to other drugs, medicaments and biological substances; R19.7 Diarrhea, unspecified

== ENCOUNTER 2022-02-19 10:09 | Inpatient (IN) | payer MEDICARE, MEDICAID ==
[~2022-02-19] VITALS: Ht 154.9 cm; Wt 63.6 kg
[~2022-02-19 10:09] MED LIST changes: +ACE65ERTAB PO; +IBUP200T45 PO; +LEVO750T14 PO; +METH-855 PO
[2022-02-19] MEDS ORDERED: MORPHINE 4 MG/ML 1ML VIAL/SYRINGE IV ONE (14:35)
[2022-02-19] MEDS ORDERED: ONDANSETRON 4MG 2ML VIAL IV ONE (14:35)
[2022-02-19] MEDS ORDERED: NS 1,000 ML IV ONE (14:35)
[2022-02-19 15:29] LABS: BASO # 0.1 10^3/uL (0.0-0.2); EOS # 0.1 10^3/uL (0.0-0.5); HEMATOCRIT 49.9 % (42.0-52.0); HEMOGLOBIN 16.5 g/dl (13.5-17.5); LYMPH # 1.4 10^3/uL (1.5-5.0); LYMPH % 17.9 % (24.0-44.0); MEAN CORPUSCULAR HEMOGLOBIN 28.4 pg (27.0-33.0); MEAN CORPUSCULAR HGB CONC 33.1 g/dl (32.0-36.5); MONO # 0.5 10^3/uL (0.0-0.8); MONO % 6.2 % (2.0-8.0); NEUTROPHILS # 5.8 10^3/uL (1.5-8.5); NEUTROPHILS % 73.6 % (36.0-66.0); PLATELET COUNT, AUTOMATED 288 10^3/uL (150-450); WHITE BLOOD COUNT 7.9 10^3/uL (4.0-10.0)
[2022-02-19 15:49] LABS: ERYTHROCYTE SEDIMENTATION RATE 4 mm/hr (0-15)
[2022-02-19 16:08] LABS: ALT/SGPT 131 U/L (12-78); BILIRUBIN,DIRECT < 0.1 MG/DL (0.0-0.2); BILIRUBIN,TOTAL 0.6 MG/DL (0.2-1.0); BLOOD UREA NITROGEN 17 MG/DL (7-18); C REACTIVE PROTEIN QUANTITATIV 0.55 MG/DL (0.00-0.30); CALCIUM LEVEL 9.7 MG/DL (8.5-10.1); CARBON DIOXIDE LEVEL 25 MEQ/L (21-32); CHLORIDE LEVEL 107 MEQ/L (98-107); CREATININE FOR GFR 0.62 MG/DL (0.70-1.30); GLOMERULAR FILTRATION RATE > 60.0 (>60); GLUCOSE, FASTING 85 MG/DL (70-100); LIPASE 86 U/L (73-393); POTASSIUM SERUM 5.4 MEQ/L (3.5-5.1); SODIUM LEVEL 137 MEQ/L (136-145); TOTAL PROTEIN 8.1 GM/DL (6.4-8.2)
[2022-02-19] MEDS ORDERED: MEROPENEM INJ 1 GM in IV 1 EA IV ONE (16:10)
[2022-02-19] MEDS ORDERED: MORPHINE 2 MG/ML 1ML VIAL IV ONE (16:25)
[2022-02-19] MEDS ORDERED: OXYC1TAB23 PO (16:50)
[2022-02-19] MEDS ORDERED: HYDR-3363 PO (16:50)
[2022-02-19] MEDS ORDERED: ACET-907 PO (16:50)
[2022-02-19] MEDS ORDERED: HOME MED LIST COMPLETE! XX SCH (16:55)
[2022-02-19] MEDS ORDERED: ACETAMINOPHEN TAB 650MG DOSE (2X325MG) PO PRN ×2 (17:20)
[2022-02-19] MEDS ORDERED: traMADol 50 MG TAB PO PRN (17:20)
[2022-02-19] MEDS ORDERED: ISOVUE-370 76% 100ML VIAL As Ordered ONE (18:04)
[2022-02-19] MEDS ORDERED: SENNA 8.6 MG TAB (SENOKOT) PO PRN (19:35)
[2022-02-19 19:48] VITALS: BP 142/92
[2022-02-19] MEDS: DOCUSATE SODIUM 100MG CAPSULE PO SCH (20:03)
[2022-02-19] MEDS: HEPARIN SOD (PORCINE) 5000UNITS/ML 1ML VIAL/SYRINGE SC SCH (20:03)
[2022-02-19] MEDS: oxyCODONE 5MG TAB PO PRN (20:09)
[2022-02-19] MEDS ORDERED: NS 500 ML IV ONE ×2 (20:25→21:50)
[2022-02-19] MEDS ORDERED: MAGNESIUM OXIDE 400MG TAB (MAG-OX) PO ONE (22:15)
[2022-02-19] MEDS: PIPERACILLIN/TAZOBACTAM SOD 3.375 GM in D5W MINI-BAG PLUS 50 ML IV SCH (23:12)
[2022-02-20] MEDS ORDERED: MORPHINE 2 MG/ML 1ML VIAL IV ONE (01:00)
[2022-02-20 05:23] VITALS: BP 115/75
[2022-02-20] MEDS: oxyCODONE 5MG TAB PO PRN ×5 (05:31→22:42)
[2022-02-20] MEDS: PIPERACILLIN/TAZOBACTAM SOD 3.375 GM in D5W MINI-BAG PLUS 50 ML IV SCH ×4 (05:32→22:41)
[2022-02-20 06:01] LABS: HEMATOCRIT 41.9 % (42.0-52.0); MEAN CORPUSCULAR HEMOGLOBIN 29.7 pg (27.0-33.0); MEAN CORPUSCULAR HGB CONC 33.2 g/dl (32.0-36.5); MEAN CORPUSCULAR VOLUME 89.5 fl (80.0-96.0); PLATELET COUNT, AUTOMATED 227 10^3/uL (150-450); RED BLOOD COUNT 4.68 10^6/uL (4.30-6.10); WHITE BLOOD COUNT 6.8 10^3/uL (4.0-10.0)
[2022-02-20 06:07] LABS: HEMOGLOBIN 13.9 g/dl (13.5-17.5)
[2022-02-20 06:23] LABS: BLOOD UREA NITROGEN 12 MG/DL (7-18); C REACTIVE PROTEIN QUANTITATIV 0.43 MG/DL (0.00-0.30); CALCIUM LEVEL 8.8 MG/DL (8.5-10.1); CARBON DIOXIDE LEVEL 27 MEQ/L (21-32); CHLORIDE LEVEL 107 MEQ/L (98-107); GLOMERULAR FILTRATION RATE > 60.0 (>60); GLUCOSE, FASTING 87 MG/DL (70-100); MAGNESIUM LEVEL 1.8 MG/DL (1.8-2.4); POTASSIUM SERUM 4.6 MEQ/L (3.5-5.1); SODIUM LEVEL 138 MEQ/L (136-145)
[2022-02-20] MEDS: HEPARIN SOD (PORCINE) 5000UNITS/ML 1ML VIAL/SYRINGE SC SCH ×2 (09:00→19:32)
[2022-02-20] MEDS: MIRALAX *UNIT DOSE* 17GM PACKET PO SCH (09:00)
[2022-02-20] MEDS: LIDOCAINE 5% (LIDODERM) PATCH TD SCH (09:15)
[2022-02-20] MEDS: DOCUSATE SODIUM 100MG CAPSULE PO SCH ×2 (09:37→19:32)
[2022-02-20 14:00] VITALS: BP 135/76
[2022-02-20] MEDS: ONDANSETRON 4MG 2ML VIAL IV PRN (14:05)
[2022-02-20 19:32] VITALS: BP 130/75
[2022-02-20] MEDS: **NOTE PATIENT COMMENT** MISC XX SCH (19:52)
[2022-02-21] MEDS: ONDANSETRON 4MG 2ML VIAL IV PRN ×2 (04:15→11:52)
[2022-02-21] MEDS: PIPERACILLIN/TAZOBACTAM SOD 3.375 GM in D5W MINI-BAG PLUS 50 ML IV SCH ×4 (05:07→22:42)
[2022-02-21] MEDS: oxyCODONE 5MG TAB PO PRN ×5 (05:07→22:43)
[2022-02-21 05:10] VITALS: BP 111/75
[2022-02-21 06:07] LABS: HEMATOCRIT 41.3 % (42.0-52.0); HEMOGLOBIN 13.6 g/dl (13.5-17.5); MEAN CORPUSCULAR HEMOGLOBIN 28.8 pg (27.0-33.0); MEAN CORPUSCULAR HGB CONC 32.9 g/dl (32.0-36.5); MEAN CORPUSCULAR VOLUME 87.5 fl (80.0-96.0); PLATELET COUNT, AUTOMATED 241 10^3/uL (150-450); RED BLOOD COUNT 4.72 10^6/uL (4.30-6.10); WHITE BLOOD COUNT 5.1 10^3/uL (4.0-10.0)
[2022-02-21 06:44] LABS: BLOOD UREA NITROGEN 13 MG/DL (7-18); CALCIUM LEVEL 8.8 MG/DL (8.5-10.1); CARBON DIOXIDE LEVEL 31 MEQ/L (21-32); CHLORIDE LEVEL 104 MEQ/L (98-107); CREATININE FOR GFR 0.69 MG/DL (0.70-1.30); GLOMERULAR FILTRATION RATE > 60.0 (>60); GLUCOSE, FASTING 100 MG/DL (70-100); POTASSIUM SERUM 4.2 MEQ/L (3.5-5.1); SODIUM LEVEL 138 MEQ/L (136-145)
[2022-02-21] MEDS: MIRALAX *UNIT DOSE* 17GM PACKET PO SCH (09:00)
[2022-02-21] MEDS: HEPARIN SOD (PORCINE) 5000UNITS/ML 1ML VIAL/SYRINGE SC SCH ×2 (09:00→19:28)
[2022-02-21] MEDS: DOCUSATE SODIUM 100MG CAPSULE PO SCH ×2 (09:10→19:28)
[2022-02-21] MEDS: LIDOCAINE 5% (LIDODERM) PATCH TD SCH (09:12)
[2022-02-21 14:00] VITALS: BP 128/81
[2022-02-21] MEDS: **NOTE PATIENT COMMENT** MISC XX SCH (19:33)
[2022-02-21 22:00] VITALS: BP 119/72
[2022-02-22] MEDS: ONDANSETRON 4MG 2ML VIAL IV PRN (03:29)
[2022-02-22] MEDS: oxyCODONE 5MG TAB PO PRN ×2 (03:31→08:26)
[2022-02-22] MEDS: PIPERACILLIN/TAZOBACTAM SOD 3.375 GM in D5W MINI-BAG PLUS 50 ML IV SCH (04:59)
[2022-02-22 06:00] VITALS: BP 122/84
[2022-02-22 06:04] LABS: HEMOGLOBIN 14.6 g/dl (13.5-17.5); MEAN CORPUSCULAR HEMOGLOBIN 29.4 pg (27.0-33.0); MEAN CORPUSCULAR HGB CONC 33.2 g/dl (32.0-36.5); MEAN CORPUSCULAR VOLUME 88.7 fl (80.0-96.0); PLATELET COUNT, AUTOMATED 234 10^3/uL (150-450); RED BLOOD COUNT 4.96 10^6/uL (4.30-6.10); WHITE BLOOD COUNT 5.1 10^3/uL (4.0-10.0)
[2022-02-22 06:38] LABS: BLOOD UREA NITROGEN 13 MG/DL (7-18); CALCIUM LEVEL 9.5 MG/DL (8.5-10.1); CARBON DIOXIDE LEVEL 30 MEQ/L (21-32); CHLORIDE LEVEL 103 MEQ/L (98-107); CREATININE FOR GFR 0.73 MG/DL (0.70-1.30); GLOMERULAR FILTRATION RATE > 60.0 (>60); GLUCOSE, FASTING 89 MG/DL (70-100); POTASSIUM SERUM 4.6 MEQ/L (3.5-5.1); SODIUM LEVEL 138 MEQ/L (136-145)
[2022-02-22] MEDS: DOCUSATE SODIUM 100MG CAPSULE PO SCH (08:21)
[2022-02-22] MEDS: HEPARIN SOD (PORCINE) 5000UNITS/ML 1ML VIAL/SYRINGE SC SCH (08:22)
[2022-02-22] MEDS: LIDOCAINE 5% (LIDODERM) PATCH TD SCH (08:27)
[2022-02-22] MEDS: MIRALAX *UNIT DOSE* 17GM PACKET PO SCH (08:27)
[2022-02-22] MEDS ORDERED: COLA100C5 PO (09:37)
[2022-02-22] MEDS ORDERED: ONDA4TAB6 PO (09:37)
[2022-02-22] MEDS ORDERED: OXYC10TA12 PO (09:37)
[2022-02-22] MEDS ORDERED: BACT800T5 PO (09:37)
== END 2022-02-22 11:13 | disposition home health service (06) | DRG 690 ==
LOC: M ED 10:09 → M ED INP 17:16 → M MSPAV 19:41
PROVIDERS: ADMIT Internal Medicine; ATTEND Internal Medicine
DX: N39.0 Urinary tract infection, site not specified (principal); G82.20 Paraplegia, unspecified; Q05.4 Unspecified spina bifida with hydrocephalus; K59.00 Constipation, unspecified; Z91.040 Latex allergy status; Z88.5 Allergy status to narcotic agent; Z88.8 Allergy status to other drugs, medicaments and biological substances; Z79.899 Other long term (current) drug therapy; N31.9 Neuromuscular dysfunction of bladder, unspecified; Z99.3 Dependence on wheelchair; S10.93XA Contusion of unspecified part of neck, initial encounter; W18.30XA Fall on same level, unspecified, initial encounter; Y92.009 Unspecified place in unspecified non-institutional (private) residence as the place of occurrence of the external cause

== ENCOUNTER 2022-04-18 11:35 | Inpatient (IN) | payer MEDICARE, MEDICAID ==
[~2022-04-18] VITALS: Ht 172.7 cm; Wt 59.1 kg
[~2022-04-18 11:35] MED LIST changes: +ACET-907 PO; +BACT800T5 PO; +COLA100C5 PO; +HYDR-3363 PO; +ONDA4TAB6 PO
[2022-04-18] MEDS ORDERED: DULO1CAP5 PO (11:43)
[2022-04-18] MEDS ORDERED: ONDANSETRON 4MG 2ML VIAL IV ONE ×2 (12:35→15:40)
[2022-04-18] MEDS ORDERED: KETOROLAC 30 MG/ML 1ML VIAL IV ONE (12:35)
[2022-04-18 12:42] LABS: BASO # 0.1 10^3/uL (0.0-0.2); BASO % 0.9 % (0.0-1.0); EOS # 0.2 10^3/uL (0.0-0.5); HEMATOCRIT 44.9 % (42.0-52.0); HEMOGLOBIN 14.8 g/dl (13.5-17.5); LYMPH # 0.7 10^3/uL (1.5-5.0); MEAN CORPUSCULAR HEMOGLOBIN 29.4 pg (27.0-33.0); MEAN CORPUSCULAR VOLUME 89.3 fl (80.0-96.0); MONO # 0.3 10^3/uL (0.0-0.8); MONO % 3.5 % (2.0-8.0); NEUTROPHILS # 6.3 10^3/uL (1.5-8.5); NEUTROPHILS % 84.5 % (36.0-66.0); PLATELET COUNT, AUTOMATED 277 10^3/uL (150-450); RED BLOOD COUNT 5.03 10^6/uL (4.30-6.10); WHITE BLOOD COUNT 7.5 10^3/uL (4.0-10.0)
[2022-04-18] MEDS ORDERED: MORPHINE 4 MG/ML 1ML VIAL/SYRINGE IV ONE ×2 (13:05→15:40)
[2022-04-18 13:45] LABS: ALBUMIN 3.9 GM/DL (3.2-5.2); ALT/SGPT 63 U/L (12-78); BILIRUBIN,DIRECT < 0.1 MG/DL (0.0-0.2); BILIRUBIN,TOTAL 0.4 MG/DL (0.2-1.0); LIPASE 78 U/L (73-393); TOTAL PROTEIN 7.6 GM/DL (6.4-8.2)
[2022-04-18] MEDS ORDERED: AZTREONAM 1 GM in D5W MINI-BAG PLUS 50 ML IV ONE (14:10)
[2022-04-18] MEDS ORDERED: COLA100C5 PO (15:51)
[2022-04-18] MEDS ORDERED: HOME MED LIST COMPLETE! XX SCH (15:55)
[2022-04-18] MEDS ORDERED: PIPERACILLIN/TAZOBACTAM SOD 3.375 GM in D5W MINI-BAG PLUS 50 ML IV SCH (17:15)
[2022-04-18] MEDS ORDERED: ACETAMINOPHEN TAB 650MG DOSE (2X325MG) PO PRN (17:40)
[2022-04-18] MEDS ORDERED: DOCUSATE SODIUM 100MG CAPSULE PO PRN (17:40)
[2022-04-18] MEDS: NS 1,000 ML IV SCH (17:57)
[2022-04-18] MEDS ORDERED: LR 1,000 ML IV SCH (18:00)
[2022-04-18] MEDS: PIPERACILLIN/TAZOBACTAM SOD 3.375 GM in D5W MINI-BAG PLUS 50 ML IV SCH (20:39)
[2022-04-18] MEDS: MORPHINE 4 MG/ML 1ML VIAL/SYRINGE IV PRN (20:44)
[2022-04-18] MEDS: HEPARIN SOD (PORCINE) 5000UNITS/ML 1ML VIAL/SYRINGE SC SCH (20:53)
[2022-04-18] MEDS: DULoxetine 30MG CAPSULE (CYMBALTA) PO SCH (20:53)
[2022-04-18 21:31] VITALS: BP 129/83
[2022-04-18] MEDS: PERCOCET 5MG/325MG TAB PO PRN (21:57)
[2022-04-19] MEDS: MORPHINE 4 MG/ML 1ML VIAL/SYRINGE IV PRN ×3 (01:11→10:53)
[2022-04-19] MEDS: PIPERACILLIN/TAZOBACTAM SOD 3.375 GM in D5W MINI-BAG PLUS 50 ML IV SCH ×4 (02:00→19:58)
[2022-04-19] MEDS: ONDANSETRON 4MG 2ML VIAL IV PRN ×3 (02:00→20:02)
[2022-04-19] MEDS: HEPARIN SOD (PORCINE) 5000UNITS/ML 1ML VIAL/SYRINGE SC SCH ×3 (05:09→21:17)
[2022-04-19] MEDS: PERCOCET 5MG/325MG TAB PO PRN ×2 (05:15→17:14)
[2022-04-19] MEDS: NS 1,000 ML IV SCH ×2 (05:15→17:14)
[2022-04-19 05:19] VITALS: BP 127/83
[2022-04-19 07:42] LABS: ALBUMIN 3.2 GM/DL (3.2-5.2); ALT/SGPT 60 U/L (12-78); BILIRUBIN,TOTAL 0.4 MG/DL (0.2-1.0); BLOOD UREA NITROGEN 18 MG/DL (7-18); CALCIUM LEVEL 8.4 MG/DL (8.5-10.1); CARBON DIOXIDE LEVEL 28 MEQ/L (21-32); CHLORIDE LEVEL 106 MEQ/L (98-107); GLOMERULAR FILTRATION RATE > 60.0 (>60); GLUCOSE, FASTING 95 MG/DL (70-100); POTASSIUM SERUM 4.3 MEQ/L (3.5-5.1); SODIUM LEVEL 138 MEQ/L (136-145)
[2022-04-19 07:54] LABS: BASO # 0.1 10^3/uL (0.0-0.2); BASO % 1.5 % (0.0-1.0); EOS # 0.7 10^3/uL (0.0-0.5); EOS % 15.2 % (0.0-3.0); HEMATOCRIT 38.5 % (42.0-52.0); LYMPH # 1.6 10^3/uL (1.5-5.0); LYMPH % 32.4 % (24.0-44.0); MEAN CORPUSCULAR HEMOGLOBIN 29.9 pg (27.0-33.0); MEAN CORPUSCULAR HGB CONC 32.7 g/dl (32.0-36.5); MEAN CORPUSCULAR VOLUME 91.4 fl (80.0-96.0); MONO # 0.4 10^3/uL (0.0-0.8); MONO % 9.2 % (2.0-8.0); NEUTROPHILS % 41.5 % (36.0-66.0); PLATELET COUNT, AUTOMATED 237 10^3/uL (150-450); RED BLOOD COUNT 4.21 10^6/uL (4.30-6.10); WHITE BLOOD COUNT 4.8 10^3/uL (4.0-10.0)
[2022-04-19 07:55] LABS: HEMOGLOBIN 12.6 g/dl (13.5-17.5)
[2022-04-19] MEDS: HYDROMORPHONE HCL 0.5 MG/ 0.5 ML SYRINGE (J1170 PER 1) IV PRN ×3 (13:06→22:56)
[2022-04-19 14:00] VITALS: BP 128/85
[2022-04-19] MEDS: DULoxetine 30MG CAPSULE (CYMBALTA) PO SCH (20:02)
[2022-04-19 22:00] VITALS: BP 122/75
[2022-04-20] MEDS: NS 1,000 ML IV SCH ×3 (00:49→22:08)
[2022-04-20] MEDS: PIPERACILLIN/TAZOBACTAM SOD 3.375 GM in D5W MINI-BAG PLUS 50 ML IV SCH ×2 (01:51→08:31)
[2022-04-20] MEDS: PERCOCET 5MG/325MG TAB PO PRN ×4 (01:52→23:59)
[2022-04-20 02:00] VITALS: BP 139/83
[2022-04-20] MEDS: HEPARIN SOD (PORCINE) 5000UNITS/ML 1ML VIAL/SYRINGE SC SCH ×3 (05:01→22:00)
[2022-04-20] MEDS: HYDROMORPHONE HCL 0.5 MG/ 0.5 ML SYRINGE (J1170 PER 1) IV PRN ×5 (05:08→22:09)
[2022-04-20 06:00] VITALS: BP 135/77
[2022-04-20 06:44] LABS: HEMATOCRIT 39.2 % (42.0-52.0); HEMOGLOBIN 12.7 g/dl (13.5-17.5); MEAN CORPUSCULAR HEMOGLOBIN 29.5 pg (27.0-33.0); MEAN CORPUSCULAR HGB CONC 32.4 g/dl (32.0-36.5); PLATELET COUNT, AUTOMATED 234 10^3/uL (150-450); RED BLOOD COUNT 4.31 10^6/uL (4.30-6.10); WHITE BLOOD COUNT 4.5 10^3/uL (4.0-10.0)
[2022-04-20 07:20] LABS: BLOOD UREA NITROGEN 13 MG/DL (7-18); CALCIUM LEVEL 8.5 MG/DL (8.5-10.1); CARBON DIOXIDE LEVEL 27 MEQ/L (21-32); CHLORIDE LEVEL 108 MEQ/L (98-107); GLOMERULAR FILTRATION RATE > 60.0 (>60); GLUCOSE, FASTING 96 MG/DL (70-100); POTASSIUM SERUM 4.8 MEQ/L (3.5-5.1); SODIUM LEVEL 137 MEQ/L (136-145)
[2022-04-20] MEDS: ONDANSETRON 4MG 2ML VIAL IV PRN ×2 (08:30→17:05)
[2022-04-20] MEDS: MIRALAX *UNIT DOSE* 17GM PACKET PO SCH (08:31)
[2022-04-20] MEDS: LevoFLOXacin IV 750 MG in IV 1 EA IV SCH (13:08)
[2022-04-20 14:00] VITALS: BP 119/73
[2022-04-20 19:45] VITALS: BP 139/82
[2022-04-20] MEDS: DULoxetine 30MG CAPSULE (CYMBALTA) PO SCH (22:08)
[2022-04-21] MEDS: HYDROMORPHONE HCL 0.5 MG/ 0.5 ML SYRINGE (J1170 PER 1) IV PRN ×2 (01:46→05:45)
[2022-04-21 05:34] VITALS: BP 146/96
[2022-04-21] MEDS: ONDANSETRON 4MG 2ML VIAL IV PRN ×2 (05:45→10:42)
[2022-04-21] MEDS: HEPARIN SOD (PORCINE) 5000UNITS/ML 1ML VIAL/SYRINGE SC SCH ×2 (06:00→13:21)
[2022-04-21] MEDS: NS 1,000 ML IV SCH (08:28)
[2022-04-21] MEDS: PERCOCET 5MG/325MG TAB PO PRN (08:28)
[2022-04-21] MEDS: MIRALAX *UNIT DOSE* 17GM PACKET PO SCH (09:00)
[2022-04-21 10:00] VITALS: BP 129/80
[2022-04-21] MEDS: MORPHINE 4 MG/ML 1ML VIAL/SYRINGE IV PRN ×2 (10:42→14:06)
[2022-04-21] MEDS ORDERED: LEVO750T14 PO (12:56)
[2022-04-21] MEDS ORDERED: PERC10TA26 PO (12:56)
[2022-04-21] MEDS: LevoFLOXacin IV 750 MG in IV 1 EA IV SCH (13:08)
[2022-04-21 14:00] VITALS: BP 127/81
== END 2022-04-21 15:00 | disposition home or self-care (01) | DRG 690 ==
LOC: M ED 11:35 → M ED INP 17:06 → M MS5PR 19:30 → OBSVTOIN 04-20 10:33
PROVIDERS: ADMIT Internal Medicine; ATTEND Internal Medicine
DX: N39.0 Urinary tract infection, site not specified (principal); G82.20 Paraplegia, unspecified; Q05.9 Spina bifida, unspecified; N31.9 Neuromuscular dysfunction of bladder, unspecified; N20.0 Calculus of kidney; Z91.040 Latex allergy status; Z88.8 Allergy status to other drugs, medicaments and biological substances; Z79.899 Other long term (current) drug therapy; F17.200 Nicotine dependence, unspecified, uncomplicated

== ENCOUNTER → 2022-04-23 | Outpatient (CLI) | payer MEDICARE, MEDICAID ==
[~2022-04-23] MED LIST changes: +DULO1CAP5 PO; +PERC10TA26 PO
== END ==
LOC: M PT 09:55
PROVIDERS: ATTEND Family Medicine Addiction Medicine
DX: Z74.09 Other reduced mobility (principal)

== ENCOUNTER 2022-08-16 12:12 | Inpatient (IN) | payer MEDICARE, MEDICAID ==
[~2022-08-16] VITALS: Ht 154.9 cm; Wt 56.8 kg
[2022-08-16] MEDS ORDERED: ACET-683 PO (13:34)
[2022-08-16] MEDS ORDERED: NS 1,000 ML IV ONE (13:40)
[2022-08-16] MEDS ORDERED: ONDANSETRON 4MG 2ML VIAL IV ONE (13:40)
[2022-08-16] MEDS ORDERED: PIPERACILLIN/TAZOBACTAM SOD 3.375 GM in D5W MINI-BAG PLUS 50 ML IV ONE (14:50)
[2022-08-16] MEDS ORDERED: MORPHINE 2 MG/ML 1ML VIAL IV PRN (15:05)
[2022-08-16 15:22] LABS: BASO % 0.4 % (0.0-1.0); EOS # 0.2 10^3/uL (0.0-0.5); EOS % 2.9 % (0.0-3.0); HEMOGLOBIN 14.6 g/dl (13.5-17.5); LYMPH # 1.1 10^3/uL (1.5-5.0); LYMPH % 15.7 % (24.0-44.0); MEAN CORPUSCULAR HEMOGLOBIN 29.3 pg (27.0-33.0); MEAN CORPUSCULAR HGB CONC 33.2 g/dl (32.0-36.5); MEAN CORPUSCULAR VOLUME 88.4 fl (80.0-96.0); MONO # 0.4 10^3/uL (0.0-0.8); MONO % 5.5 % (2.0-8.0); NEUTROPHILS # 5.2 10^3/uL (1.5-8.5); NEUTROPHILS % 75.2 % (36.0-66.0); PLATELET COUNT, AUTOMATED 233 10^3/uL (150-450); RED BLOOD COUNT 4.98 10^6/uL (4.30-6.10); WHITE BLOOD COUNT 6.9 10^3/uL (4.0-10.0)
[2022-08-16 15:31] LABS: LIPASE 33 U/L (12-53)
[2022-08-16 15:32] LABS: ALBUMIN 3.9 G/DL (3.2-5.2); ALKALINE PHOSPHATASE 76 U/L (46-116); ALT/SGPT 97 U/L (7.0-40); AST/SGOT 54 U/L (<34); BILIRUBIN,DIRECT 0.1 MG/DL (<0.4); BILIRUBIN,TOTAL 0.3 MG/DL (0.3-1.2); BLOOD UREA NITROGEN 11 MG/DL (9-23); CALCIUM LEVEL 9.4 MG/DL (8.5-10.1); CARBON DIOXIDE LEVEL 25 MMOL/L (20-31); CHLORIDE LEVEL 107 MMOL/L (98-107); CREATININE FOR GFR 0.57 MG/DL (0.70-1.30); GLOMERULAR FILTRATION RATE > 60.0 (>60); GLUCOSE, FASTING 78 MG/DL (60-100); POTASSIUM SERUM 3.9 MMOL/L (3.5-5.1); SODIUM LEVEL 141 MMOL/L (136-145); TOTAL PROTEIN 7.1 G/DL (5.7-8.2)
[2022-08-16 15:34] LABS: RSV AMPLIFICATION NEGATIVE (NEGATIVE)
[2022-08-16] MEDS ORDERED: HYDROMORPHONE HCL 0.5 MG/ 0.5 ML SYRINGE IV ONE (16:25)
[2022-08-16] MEDS ORDERED: HOME MED LIST COMPLETE! XX SCH (16:40)
[2022-08-16] MEDS ORDERED: ACETAMINOPHEN 500 MG TAB PO PRN (18:00)
[2022-08-16] MEDS: PERCOCET 5MG/325MG TAB PO PRN ×2 (19:39→23:41)
[2022-08-16] MEDS: NIRMATRELVIR/RITONAVIR CO-PACK (EMERGENCY USE AUTH) PO SCH (21:00)
[2022-08-16] MEDS: HEPARIN SOD (PORCINE) 5000UNITS/ML 1ML VIAL/SYRINGE SQ SCH (21:00)
[2022-08-16 21:15] VITALS: BP 138/90
[2022-08-16] MEDS: PIPERACILLIN/TAZOBACTAM SOD 3.375 GM in D5W MINI-BAG PLUS 50 ML IV SCH (21:47)
[2022-08-16] MEDS: MORPHINE 2 MG/ML 1ML VIAL IV PRN (21:47)
[2022-08-17 02:00] VITALS: BP 109/76
[2022-08-17] MEDS: MORPHINE 2 MG/ML 1ML VIAL IV PRN ×4 (02:21→18:25)
[2022-08-17] MEDS: PIPERACILLIN/TAZOBACTAM SOD 3.375 GM in D5W MINI-BAG PLUS 50 ML IV SCH ×4 (02:21→21:16)
[2022-08-17] MEDS: PERCOCET 5MG/325MG TAB PO PRN ×4 (05:47→21:15)
[2022-08-17 06:00] VITALS: BP 112/75
[2022-08-17 06:03] LABS: HEMATOCRIT 39.6 % (42.0-52.0); HEMOGLOBIN 12.8 g/dl (13.5-17.5); MEAN CORPUSCULAR HEMOGLOBIN 28.8 pg (27.0-33.0); MEAN CORPUSCULAR HGB CONC 32.3 g/dl (32.0-36.5); PLATELET COUNT, AUTOMATED 213 10^3/uL (150-450); RED BLOOD COUNT 4.45 10^6/uL (4.30-6.10); WHITE BLOOD COUNT 5.2 10^3/uL (4.0-10.0)
[2022-08-17 06:27] LABS: BLOOD UREA NITROGEN 10 MG/DL (9-23); CALCIUM LEVEL 8.2 MG/DL (8.5-10.1); CARBON DIOXIDE LEVEL 27 MMOL/L (20-31); CHLORIDE LEVEL 106 MMOL/L (98-107); CREATININE FOR GFR 0.67 MG/DL (0.70-1.30); GLOMERULAR FILTRATION RATE > 60.0 (>60); GLUCOSE, FASTING 89 MG/DL (60-100); SODIUM LEVEL 139 MMOL/L (136-145)
[2022-08-17] MEDS: HEPARIN SOD (PORCINE) 5000UNITS/ML 1ML VIAL/SYRINGE SQ SCH ×2 (09:00→21:00)
[2022-08-17] MEDS: ONDANSETRON 4MG 2ML VIAL IV PRN ×2 (09:27→15:58)
[2022-08-17] MEDS: NIRMATRELVIR/RITONAVIR CO-PACK (EMERGENCY USE AUTH) PO SCH ×2 (11:01→21:17)
[2022-08-17 14:00] VITALS: BP 122/83
[2022-08-17] MEDS ORDERED: NS 1,000 ML IV SCH (15:00)
[2022-08-17] MEDS: LACTOBACILLUS ACIDOPHILUS CAP (BACID) PO SCH (18:23)
[2022-08-17 21:00] VITALS: BP 130/88
[2022-08-17] MEDS: FIDAXOMICIN 200 MG TAB (DIFICID) PO SCH (21:14)
[2022-08-17] MEDS: DULoxetine 30MG CAPSULE (CYMBALTA) PO SCH (21:15)
[2022-08-18] MEDS: MORPHINE 2 MG/ML 1ML VIAL IV PRN ×2 (00:25→10:53)
[2022-08-18] MEDS: PIPERACILLIN/TAZOBACTAM SOD 3.375 GM in D5W MINI-BAG PLUS 50 ML IV SCH ×4 (02:30→20:24)
[2022-08-18] MEDS: PERCOCET 5MG/325MG TAB PO PRN ×5 (04:19→23:57)
[2022-08-18] MEDS: ONDANSETRON 4MG 2ML VIAL IV PRN ×3 (04:24→23:56)
[2022-08-18 06:05] VITALS: BP 122/82
[2022-08-18 06:16] LABS: HEMATOCRIT 42.5 % (42.0-52.0); HEMOGLOBIN 13.3 g/dl (13.5-17.5); MEAN CORPUSCULAR HEMOGLOBIN 29.2 pg (27.0-33.0); MEAN CORPUSCULAR HGB CONC 31.3 g/dl (32.0-36.5); MEAN CORPUSCULAR VOLUME 93.4 fl (80.0-96.0); PLATELET COUNT, AUTOMATED 201 10^3/uL (150-450); RED BLOOD COUNT 4.55 10^6/uL (4.30-6.10)
[2022-08-18 06:31] LABS: BLOOD UREA NITROGEN 7 MG/DL (9-23); CALCIUM LEVEL 8.4 MG/DL (8.5-10.1); CARBON DIOXIDE LEVEL 24 MMOL/L (20-31); CHLORIDE LEVEL 108 MMOL/L (98-107); CREATININE FOR GFR 0.76 MG/DL (0.70-1.30); GLOMERULAR FILTRATION RATE > 60.0 (>60); GLUCOSE, FASTING 81 MG/DL (60-100); POTASSIUM SERUM 4.5 MMOL/L (3.5-5.1); SODIUM LEVEL 139 MMOL/L (136-145)
[2022-08-18] MEDS: HEPARIN SOD (PORCINE) 5000UNITS/ML 1ML VIAL/SYRINGE SQ SCH ×2 (08:27→19:16)
[2022-08-18] MEDS: FIDAXOMICIN 200 MG TAB (DIFICID) PO SCH ×2 (08:45→19:43)
[2022-08-18] MEDS: LACTOBACILLUS ACIDOPHILUS CAP (BACID) PO SCH ×2 (08:45→17:53)
[2022-08-18] MEDS: NIRMATRELVIR/RITONAVIR CO-PACK (EMERGENCY USE AUTH) PO SCH ×2 (08:48→19:44)
[2022-08-18 14:00] VITALS: BP 118/75
[2022-08-18] MEDS ORDERED: PERCOCET 5MG/325MG TAB PO PRN (18:00)
[2022-08-18] MEDS ORDERED: KETOROLAC 30 MG/ML 1ML VIAL IV ONE (18:00)
[2022-08-18] MEDS: DULoxetine 30MG CAPSULE (CYMBALTA) PO SCH (19:43)
[2022-08-18 20:00] VITALS: BP 132/83
[2022-08-19] MEDS: PIPERACILLIN/TAZOBACTAM SOD 3.375 GM in D5W MINI-BAG PLUS 50 ML IV SCH (03:00)
[2022-08-19] MEDS ORDERED: PERCOCET 5MG/325MG TAB As Ordered ONE (04:58)
[2022-08-19] MEDS: PERCOCET 5MG/325MG TAB PO PRN ×3 (05:01→13:20)
[2022-08-19 06:00] VITALS: BP 140/84
[2022-08-19 06:15] LABS: HEMATOCRIT 44.1 % (42.0-52.0); HEMOGLOBIN 14.5 g/dl (13.5-17.5); MEAN CORPUSCULAR HEMOGLOBIN 29.4 pg (27.0-33.0); MEAN CORPUSCULAR HGB CONC 32.9 g/dl (32.0-36.5); MEAN CORPUSCULAR VOLUME 89.5 fl (80.0-96.0); PLATELET COUNT, AUTOMATED 265 10^3/uL (150-450); RED BLOOD COUNT 4.93 10^6/uL (4.30-6.10); WHITE BLOOD COUNT 5.9 10^3/uL (4.0-10.0)
[2022-08-19 06:59] LABS: BLOOD UREA NITROGEN 8 MG/DL (9-23); CALCIUM LEVEL 9.1 MG/DL (8.5-10.1); CARBON DIOXIDE LEVEL 25 MMOL/L (20-31); CHLORIDE LEVEL 104 MMOL/L (98-107); CREATININE FOR GFR 0.82 MG/DL (0.70-1.30); GLOMERULAR FILTRATION RATE > 60.0 (>60); GLUCOSE, FASTING 105 MG/DL (60-100); POTASSIUM SERUM 4.8 MMOL/L (3.5-5.1); SODIUM LEVEL 138 MMOL/L (136-145)
[2022-08-19] MEDS ORDERED: LevoFLOXacin 750 MG TABLET PO SCH (07:25)
[2022-08-19] MEDS: HEPARIN SOD (PORCINE) 5000UNITS/ML 1ML VIAL/SYRINGE SQ SCH (08:01)
[2022-08-19] MEDS: FIDAXOMICIN 200 MG TAB (DIFICID) PO SCH (09:23)
[2022-08-19] MEDS: LACTOBACILLUS ACIDOPHILUS CAP (BACID) PO SCH (09:23)
[2022-08-19] MEDS: NIRMATRELVIR/RITONAVIR CO-PACK (EMERGENCY USE AUTH) PO SCH (09:25)
[2022-08-19] MEDS ORDERED: FIDA200TA PO (10:30)
[2022-08-19] MEDS: ONDANSETRON 4MG 2ML VIAL IV PRN (13:19)
[2022-08-19 14:00] VITALS: BP 124/83
[2022-08-19] MEDS ORDERED: LEVO1TAB40 PO (14:21)
[2022-08-19] MEDS ORDERED: PERCOCET PO (14:21)
[2022-08-19] MEDS ORDERED: NIRM1TAB PO (14:30)
== END 2022-08-19 15:20 | disposition home or self-care (01) | DRG 698 ==
LOC: M ED 12:12 → M ED INP 17:55 → M MSPAV 20:55
PROVIDERS: ADMIT Family Medicine; ATTEND Internal Medicine
DX: T83.518A Infection and inflammatory reaction due to other urinary catheter, initial encounter (principal); U07.1 COVID-19; G82.20 Paraplegia, unspecified; A04.72 Enterocolitis due to Clostridium difficile, not specified as recurrent; N39.0 Urinary tract infection, site not specified; N31.9 Neuromuscular dysfunction of bladder, unspecified; F17.200 Nicotine dependence, unspecified, uncomplicated; Q05.9 Spina bifida, unspecified; Z99.3 Dependence on wheelchair; Z96.0 Presence of urogenital implants; Z90.5 Acquired absence of kidney; Z88.1 Allergy status to other antibiotic agents; Z88.8 Allergy status to other drugs, medicaments and biological substances; Z91.040 Latex allergy status

== ENCOUNTER 2022-12-05 11:16 | Inpatient (IN) | payer MEDICARE, MEDICAID ==
[~2022-12-05] VITALS: Ht 154.9 cm; Wt 54.6 kg
[~2022-12-05 11:16] MED LIST changes: +ACET-683 PO; +FIDA200TA PO; +LEVO1TAB40 PO; +NIRM1TAB PO; +PERCOCET PO
[2022-12-05] MEDS ORDERED: NS 1,000 ML IV ONE (12:10)
[2022-12-05] MEDS ORDERED: MORPHINE 4 MG/ML 1ML VIAL IV ONE ×2 (12:10→14:35)
[2022-12-05] MEDS ORDERED: ONDANSETRON 4MG 2ML VIAL IV ONE (12:10)
[2022-12-05 13:54] LABS: BASO # 0.1 10^3/uL (0.0-0.2); BASO % 0.9 % (0.0-1.0); EOS # 0.1 10^3/uL (0.0-0.5); EOS % 1.2 % (0.0-3.0); HEMATOCRIT 38.9 % (42.0-52.0); HEMOGLOBIN 13.1 g/dl (13.5-17.5); LYMPH # 0.8 10^3/uL (1.5-5.0); LYMPH % 14.2 % (24.0-44.0); MEAN CORPUSCULAR HEMOGLOBIN 29.9 pg (27.0-33.0); MEAN CORPUSCULAR HGB CONC 33.7 g/dl (32.0-36.5); MEAN CORPUSCULAR VOLUME 88.8 fl (80.0-96.0); MONO # 0.3 10^3/uL (0.0-0.8); MONO % 5.3 % (2.0-8.0); NEUTROPHILS # 4.6 10^3/uL (1.5-8.5); NEUTROPHILS % 78.2 % (36.0-66.0); PLATELET COUNT, AUTOMATED 245 10^3/uL (150-450); RED BLOOD COUNT 4.38 10^6/uL (4.30-6.10); WHITE BLOOD COUNT 5.8 10^3/uL (4.0-10.0)
[2022-12-05] MEDS ORDERED: KETOROLAC 30 MG/ML 1ML VIAL IV ONE (14:05)
[2022-12-05] MEDS ORDERED: LevoFLOXacin IV 750 MG in IV 1 EA IV ONE (14:05)
[2022-12-05 14:22] LABS: ALBUMIN 3.6 G/DL (3.2-5.2); BILIRUBIN,DIRECT 0.2 MG/DL (<0.4); BILIRUBIN,TOTAL 0.4 MG/DL (0.3-1.2)
[2022-12-05 14:30] LABS: RSV AMPLIFICATION NEGATIVE (NEGATIVE)
[2022-12-05] MEDS ORDERED: OXYC1TAB23 PO (14:58)
[2022-12-05] MEDS ORDERED: HOME MED LIST COMPLETE! XX SCH (15:00)
[2022-12-05] MEDS ORDERED: oxyCODONE 5MG TAB PO PRN (17:30)
[2022-12-05 17:46] VITALS: BP 137/84
[2022-12-05] MEDS: oxyCODONE 5MG TAB PO PRN (17:56)
[2022-12-05 19:47] VITALS: BP 128/88
[2022-12-05] MEDS ORDERED: KETOROLAC 30 MG/ML 1ML VIAL IV SCH (20:00)
[2022-12-05] MEDS: LACTULOSE 20GM/30ML SYRUP UDC PO SCH ×3 (20:06→20:44)
[2022-12-05] MEDS: SENNA 8.6 MG TAB (SENOKOT) PO SCH ×2 (20:07→20:40)
[2022-12-05] MEDS: DOCUSATE SODIUM 100MG CAPSULE PO SCH ×2 (20:07→20:40)
[2022-12-05] MEDS ORDERED: ACETAMINOPHEN 1000MG 100ML IV BAG IV ONE (21:00)
[2022-12-05] MEDS: ONDANSETRON 4MG 2ML VIAL IV PRN (23:29)
[2022-12-06] MEDS: oxyCODONE 5MG TAB PO PRN ×5 (00:06→23:57)
[2022-12-06] MEDS: ONDANSETRON 4MG 2ML VIAL IV PRN ×2 (05:58→15:57)
[2022-12-06 06:10] LABS: BASO # 0.1 10^3/uL (0.0-0.2); BASO % 0.8 % (0.0-1.0); EOS # 0.6 10^3/uL (0.0-0.5); EOS % 10.6 % (0.0-3.0); HEMATOCRIT 39.7 % (42.0-52.0); HEMOGLOBIN 13.1 g/dl (13.5-17.5); LYMPH # 1.8 10^3/uL (1.5-5.0); LYMPH % 29.6 % (24.0-44.0); MEAN CORPUSCULAR HEMOGLOBIN 29.2 pg (27.0-33.0); MEAN CORPUSCULAR VOLUME 88.6 fl (80.0-96.0); MONO # 0.5 10^3/uL (0.0-0.8); MONO % 8.8 % (2.0-8.0); PLATELET COUNT, AUTOMATED 264 10^3/uL (150-450); RED BLOOD COUNT 4.48 10^6/uL (4.30-6.10); WHITE BLOOD COUNT 6.1 10^3/uL (4.0-10.0)
[2022-12-06 06:27] LABS: BLOOD UREA NITROGEN 10 MG/DL (9-23); CARBON DIOXIDE LEVEL 26 MMOL/L (20-31); CHLORIDE LEVEL 108 MMOL/L (98-107); CREATININE FOR GFR 0.59 MG/DL (0.70-1.30); GLOMERULAR FILTRATION RATE > 60.0 (>60); GLUCOSE, FASTING 99 MG/DL (60-100); POTASSIUM SERUM 4.4 MMOL/L (3.5-5.1); SODIUM LEVEL 138 MMOL/L (136-145)
[2022-12-06] MEDS ORDERED: NS 1,000 ML IV ONE (08:15)
[2022-12-06] MEDS: LACTULOSE 20GM/30ML SYRUP UDC PO SCH ×2 (09:00→20:11)
[2022-12-06] MEDS: DOCUSATE SODIUM 100MG CAPSULE PO SCH ×2 (09:28→20:08)
[2022-12-06] MEDS: ENOXAPARIN 30MG/0.3ML SYRINGE (J1650 PER 10MG) SC SCH (09:29)
[2022-12-06 14:00] VITALS: BP 129/82
[2022-12-06] MEDS ORDERED: LevoFLOXacin IV 750 MG in IV 1 EA IV SCH (18:00)
[2022-12-06 19:45] VITALS: BP 130/81
[2022-12-06] MEDS: SENNA 8.6 MG TAB (SENOKOT) PO SCH (20:11)
[2022-12-07 05:23] VITALS: BP 128/82
[2022-12-07] MEDS: ONDANSETRON 4MG 2ML VIAL IV PRN ×3 (05:30→18:52)
[2022-12-07 05:45] LABS: BASO # 0.1 10^3/uL (0.0-0.2); BASO % 1.4 % (0.0-1.0); EOS # 0.8 10^3/uL (0.0-0.5); EOS % 14.3 % (0.0-3.0); HEMATOCRIT 39.2 % (42.0-52.0); HEMOGLOBIN 13.2 g/dl (13.5-17.5); LYMPH # 1.8 10^3/uL (1.5-5.0); LYMPH % 32.7 % (24.0-44.0); MEAN CORPUSCULAR HEMOGLOBIN 29.7 pg (27.0-33.0); MEAN CORPUSCULAR HGB CONC 33.7 g/dl (32.0-36.5); MEAN CORPUSCULAR VOLUME 88.3 fl (80.0-96.0); MONO # 0.5 10^3/uL (0.0-0.8); MONO % 9.7 % (2.0-8.0); NEUTROPHILS # 2.3 10^3/uL (1.5-8.5); NEUTROPHILS % 41.5 % (36.0-66.0); PLATELET COUNT, AUTOMATED 257 10^3/uL (150-450); RED BLOOD COUNT 4.44 10^6/uL (4.30-6.10); WHITE BLOOD COUNT 5.5 10^3/uL (4.0-10.0)
[2022-12-07] MEDS: oxyCODONE 5MG TAB PO PRN ×4 (06:04→23:16)
[2022-12-07 06:16] LABS: BLOOD UREA NITROGEN 8 MG/DL (9-23); CARBON DIOXIDE LEVEL 31 MMOL/L (20-31); CHLORIDE LEVEL 105 MMOL/L (98-107); CREATININE FOR GFR 0.61 MG/DL (0.70-1.30); GLOMERULAR FILTRATION RATE > 60.0 (>60); GLUCOSE, FASTING 89 MG/DL (60-100); POTASSIUM SERUM 4.7 MMOL/L (3.5-5.1); SODIUM LEVEL 141 MMOL/L (136-145)
[2022-12-07] MEDS: ENOXAPARIN 30MG/0.3ML SYRINGE (J1650 PER 10MG) SC SCH (09:00)
[2022-12-07] MEDS: LACTULOSE 20GM/30ML SYRUP UDC PO SCH ×2 (09:00→21:00)
[2022-12-07] MEDS: DOCUSATE SODIUM 100MG CAPSULE PO SCH ×2 (09:37→21:00)
[2022-12-07] MEDS: ACETAMINOPHEN TAB 650MG DOSE (2X325MG) PO PRN (09:38)
[2022-12-07 14:30] VITALS: BP 137/87
[2022-12-07] MEDS ORDERED: LevoFLOXacin 750 MG TABLET PO SCH (16:00)
[2022-12-07 19:24] VITALS: BP 141/83
[2022-12-07] MEDS: SENOKOT S TAB PO SCH (21:00)
[2022-12-08] MEDS: ACETAMINOPHEN TAB 650MG DOSE (2X325MG) PO PRN (04:27)
[2022-12-08] MEDS: oxyCODONE 5MG TAB PO PRN ×2 (05:12→11:25)
[2022-12-08 05:14] VITALS: BP 154/91
[2022-12-08 06:27] LABS: BASO # 0.1 10^3/uL (0.0-0.2); BASO % 1.1 % (0.0-1.0); EOS # 0.8 10^3/uL (0.0-0.5); EOS % 14.1 % (0.0-3.0); HEMATOCRIT 46.3 % (42.0-52.0); HEMOGLOBIN 15.8 g/dl (13.5-17.5); LYMPH # 1.4 10^3/uL (1.5-5.0); LYMPH % 25.7 % (24.0-44.0); MEAN CORPUSCULAR HEMOGLOBIN 29.6 pg (27.0-33.0); MEAN CORPUSCULAR HGB CONC 34.1 g/dl (32.0-36.5); MEAN CORPUSCULAR VOLUME 86.9 fl (80.0-96.0); MONO # 0.4 10^3/uL (0.0-0.8); MONO % 8.2 % (2.0-8.0); NEUTROPHILS # 2.7 10^3/uL (1.5-8.5); NEUTROPHILS % 50.3 % (36.0-66.0); PLATELET COUNT, AUTOMATED 296 10^3/uL (150-450); RED BLOOD COUNT 5.33 10^6/uL (4.30-6.10); WHITE BLOOD COUNT 5.4 10^3/uL (4.0-10.0)
[2022-12-08 06:49] LABS: BLOOD UREA NITROGEN 13 MG/DL (9-23); CALCIUM LEVEL 9.5 MG/DL (8.5-10.1); CARBON DIOXIDE LEVEL 28 MMOL/L (20-31); CHLORIDE LEVEL 102 MMOL/L (98-107); GLOMERULAR FILTRATION RATE > 60.0 (>60); GLUCOSE, FASTING 99 MG/DL (60-100); POTASSIUM SERUM 4.7 MMOL/L (3.5-5.1); SODIUM LEVEL 138 MMOL/L (136-145)
[2022-12-08] MEDS: ONDANSETRON 4MG 2ML VIAL IV PRN (07:56)
[2022-12-08] MEDS: LACTULOSE 20GM/30ML SYRUP UDC PO SCH (07:56)
[2022-12-08] MEDS: SENOKOT S TAB PO SCH (07:57)
[2022-12-08] MEDS: DOCUSATE SODIUM 100MG CAPSULE PO SCH (08:00)
[2022-12-08] MEDS: ENOXAPARIN 30MG/0.3ML SYRINGE (J1650 PER 10MG) SC SCH (08:01)
[2022-12-08] MEDS ORDERED: LEVO1TAB40 PO (10:03)
[2022-12-08] MEDS ORDERED: OXYC-517 PO (10:03)
[2022-12-08] MEDS ORDERED: COLA100C5 PO (10:03)
[2022-12-08] MEDS ORDERED: FAMO20TA PO (10:03)
[2022-12-08] MEDS ORDERED: SENN-186 PO (10:03)
[2022-12-08] MEDS ORDERED: ONDA4TAB6 PO (10:03)
== END 2022-12-08 12:15 | disposition home or self-care (01) | DRG 699 ==
LOC: M ED 11:16 → M ED INP 15:53 → M MS5PR 17:26
PROVIDERS: ADMIT Internal Medicine Nephrology; ATTEND Internal Medicine Nephrology
DX: T83.518A Infection and inflammatory reaction due to other urinary catheter, initial encounter (principal); N10 Acute pyelonephritis; G82.20 Paraplegia, unspecified; Q05.9 Spina bifida, unspecified; Z99.3 Dependence on wheelchair; F17.200 Nicotine dependence, unspecified, uncomplicated; B95.1 Streptococcus, group B, as the cause of diseases classified elsewhere; N31.9 Neuromuscular dysfunction of bladder, unspecified; K59.09 Other constipation; G89.29 Other chronic pain; M54.9 Dorsalgia, unspecified; M25.559 Pain in unspecified hip; D37.6 Neoplasm of uncertain behavior of liver, gallbladder and bile ducts; Z79.899 Other long term (current) drug therapy; Z88.1 Allergy status to other antibiotic agents; Z88.8 Allergy status to other drugs, medicaments and biological substances; Z91.040 Latex allergy status; Z86.16 Personal history of COVID-19; Z79.891 Long term (current) use of opiate analgesic

== ENCOUNTER 2023-01-15 11:24 | Emergency (ER) | payer MEDICARE, MEDICAID ==
[~2023-01-15] VITALS: Ht 154.9 cm; Wt 59.1 kg
[~2023-01-15 11:24] MED LIST changes: +FAMO20TA PO; +OXYC-517 PO; +SENN-186 PO
[2023-01-15 12:05] LABS: BASO # 0.1 10^3/uL (0.0-0.2); BASO % 0.8 % (0.0-1.0); EOS # 0.1 10^3/uL (0.0-0.5); EOS % 1.6 % (0.0-3.0); HEMATOCRIT 42.2 % (42.0-52.0); HEMOGLOBIN 14.1 g/dl (13.5-17.5); LYMPH # 0.6 10^3/uL (1.5-5.0); LYMPH % 7.4 % (24.0-44.0); MEAN CORPUSCULAR HEMOGLOBIN 29.3 pg (27.0-33.0); MEAN CORPUSCULAR HGB CONC 33.4 g/dl (32.0-36.5); MEAN CORPUSCULAR VOLUME 87.7 fl (80.0-96.0); MONO # 0.4 10^3/uL (0.0-0.8); MONO % 4.4 % (2.0-8.0); NEUTROPHILS # 7.3 10^3/uL (1.5-8.5); NEUTROPHILS % 85.4 % (36.0-66.0); PLATELET COUNT, AUTOMATED 310 10^3/uL (150-450); RED BLOOD COUNT 4.81 10^6/uL (4.30-6.10); WHITE BLOOD COUNT 8.6 10^3/uL (4.0-10.0)
[2023-01-15 12:13] LABS: APPEARANCE, URINE CLOUDY (CLEAR); BACTERIA, URINE AUTO 3+ (NEGATIVE); BILIRUBIN, URINE AUTO NEGATIVE (NEGATIVE); BLOOD, URINE BLOOD 1+ (NEGATIVE); CALCIUM OXALATE CRYSTALS SMALL; COLOR, URINE YELLOW (YELLOW); GLUCOSE, URINE (UA) AUTO NEGATIVE (NEGATIVE); KETONE, URINE AUTO TRACE mg/dL (NEGATIVE); LEUKOCYTE ESTERASE, URINE AUTO 3+ (NEGATIVE); MUCUS, URINE SMALL (NEGATIVE); NITRITE, URINE AUTO POSITIVE (NEGATIVE); PROTEIN, URINE AUTO NEGATIVE (NEGATIVE); RBC, URINE AUTO 13 /HPF (0-3); SPECIFIC GRAVITY URINE AUTO 1.006 (1.002-1.035); SQUAMOUS EPITHELIAL CELL UR AU 2 /HPF (0-6); UROBILINOGEN, URINE AUTO 0.2 mg/dL (0.0-2.0); WBC, URINE AUTO 119 /HPF (0-3)
[2023-01-15 12:25] LABS: LIPASE 29 U/L (12-53)
[2023-01-15 12:27] LABS: ALBUMIN 3.9 G/DL (3.2-5.2); ALKALINE PHOSPHATASE 51 U/L (46-116); ALT/SGPT 31 U/L (7.0-40); AST/SGOT < 8 U/L (<34); BILIRUBIN,TOTAL 0.3 MG/DL (0.3-1.2); BLOOD UREA NITROGEN 13 MG/DL (9-23); CARBON DIOXIDE LEVEL 26 MMOL/L (20-31); CHLORIDE LEVEL 107 MMOL/L (98-107); CREATININE FOR GFR 0.53 MG/DL (0.70-1.30); GLOMERULAR FILTRATION RATE > 60.0 (>60); GLUCOSE, FASTING 100 MG/DL (60-100); POTASSIUM SERUM 3.8 MMOL/L (3.5-5.1); SODIUM LEVEL 140 MMOL/L (136-145); TOTAL PROTEIN 6.8 G/DL (5.7-8.2)
[2023-01-15] MEDS ORDERED: MORPHINE 4 MG/ML 1ML VIAL IV ONE ×2 (12:45→14:25)
[2023-01-15] MEDS ORDERED: ONDANSETRON 4MG 2ML VIAL IV ONE (12:45)
[2023-01-15] MEDS ORDERED: NS 1,180 ML IV ONE (12:45)
[2023-01-15] MEDS ORDERED: ISOVUE-370 76% 100ML VIAL As Ordered ONE (12:49)
[2023-01-15] MEDS ORDERED: CIPROFLOXACIN 500MG TABLET PO ONE (14:25)
[2023-01-15] MEDS ORDERED: DICYCLOMINE 10 MG CAP PO ONE (14:55)
[2023-01-15 15:05] VITALS: TEMP 98.7
[2023-01-15] MEDS ORDERED: CIPR-249 PO (16:01)
[2023-01-15] MEDS ORDERED: DICY10CA13 PO (16:01)
[2023-01-15] MEDS ORDERED: OXYC-517 PO (16:01)
[2023-01-15 16:21] VITALS: BP 122/82; O2SAT 98
== END 2023-01-15 16:22 | disposition home or self-care (01) ==
LOC: M ED 11:24
DX: N10 Acute pyelonephritis (principal); R51.9 Headache, unspecified; Z88.1 Allergy status to other antibiotic agents; Z88.8 Allergy status to other drugs, medicaments and biological substances; Z91.040 Latex allergy status
CPT/HCPCS: 74177; 80053; 81001; 83690; 85025; 87088; 87186; 96374; 96375; 99284; J2405; Q9967

== ENCOUNTER 2023-02-28 11:04 | Emergency (ER) | payer MEDICARE, MEDICAID ==
[~2023-02-28] VITALS: Ht 154.9 cm; Wt 56.8 kg
[~2023-02-28 11:04] MED LIST changes: +DICY-61 PO
[2023-02-28] MEDS ORDERED: NITR1CAP27 PO (11:15)
[2023-02-28] MEDS ORDERED: NS 1,000 ML IV ONE (12:35)
[2023-02-28] MEDS ORDERED: KETOROLAC 30 MG/ML 1ML VIAL IV ONE (12:35)
[2023-02-28] MEDS ORDERED: ONDANSETRON 4MG 2ML VIAL IV ONE (12:35)
[2023-02-28 13:21] LABS: BASO # 0.1 10^3/uL (0.0-0.2); BASO % 0.5 % (0.0-1.0); EOS % 0.1 % (0.0-3.0); HEMATOCRIT 45.7 % (42.0-52.0); HEMOGLOBIN 15.6 g/dl (13.5-17.5); LYMPH # 0.7 10^3/uL (1.5-5.0); LYMPH % 3.9 % (24.0-44.0); MEAN CORPUSCULAR HEMOGLOBIN 29.9 pg (27.0-33.0); MEAN CORPUSCULAR HGB CONC 34.1 g/dl (32.0-36.5); MEAN CORPUSCULAR VOLUME 87.5 fl (80.0-96.0); MONO % 5.9 % (2.0-8.0); NEUTROPHILS # 15.4 10^3/uL (1.5-8.5); NEUTROPHILS % 89.2 % (36.0-66.0); PLATELET COUNT, AUTOMATED 324 10^3/uL (150-450); RED BLOOD COUNT 5.22 10^6/uL (4.30-6.10); WHITE BLOOD COUNT 17.3 10^3/uL (4.0-10.0)
[2023-02-28 13:39] LABS: LIPASE 29 U/L (12-53)
[2023-02-28 13:41] LABS: ALBUMIN 4.3 G/DL (3.2-5.2); ALKALINE PHOSPHATASE 67 U/L (46-116); ALT/SGPT 40 U/L (7.0-40); AST/SGOT 11 U/L (<34); BILIRUBIN,DIRECT 0.3 MG/DL (<0.4); BLOOD UREA NITROGEN 14 MG/DL (9-23); CALCIUM LEVEL 10.3 MG/DL (8.5-10.1); CARBON DIOXIDE LEVEL 28 MMOL/L (20-31); CHLORIDE LEVEL 102 MMOL/L (98-107); CREATININE FOR GFR 0.61 MG/DL (0.70-1.30); GLOMERULAR FILTRATION RATE > 60.0 (>60); GLUCOSE, FASTING 84 MG/DL (60-100); SODIUM LEVEL 141 MMOL/L (136-145); TOTAL PROTEIN 7.9 G/DL (5.7-8.2)
[2023-02-28] MEDS ORDERED: ISOVUE-370 76% 100ML VIAL As Ordered ONE (14:01)
[2023-02-28] MEDS ORDERED: LevoFLOXacin 500 MG TABLET PO ONE (15:15)
[2023-02-28] MEDS ORDERED: NORCO, ANEXSIA 5/325MG TABLET (HYDROcodone/ACETAMINOPHEN) PO ONE (15:20)
[2023-02-28] MEDS ORDERED: LEVO1TAB39 PO (16:55)
[2023-02-28 17:00] VITALS: BP 148/66; TEMP 98.2; O2SAT 98
[2023-03-04] MEDS ORDERED: CEFD300C41 PO (13:05)
== END 2023-02-28 17:08 | disposition home or self-care (01) ==
LOC: M ED 11:04
DX: N39.0 Urinary tract infection, site not specified (principal); N45.1 Epididymitis; F41.9 Anxiety disorder, unspecified; F17.200 Nicotine dependence, unspecified, uncomplicated; F12.10 Cannabis abuse, uncomplicated; Z87.442 Personal history of urinary calculi; Z79.899 Other long term (current) drug therapy
CPT/HCPCS: 74177; 76870; 80048; 80076; 81001; 83605; 83690; 85025; 87040; 87088; 87186; 93976; 96361; 96374; 96375; 99284; J1885; J2405; Q9967

== ENCOUNTER 2023-10-03 14:06 | Inpatient (IN) | payer MEDICARE, MEDICAID ==
[~2023-10-03] VITALS: Ht 154.9 cm; Wt 52.4 kg
[~2023-10-03 14:06] MED LIST changes: +BACI1CAP PO; +BUTA-198 PO; +CEFD1CAP9 PO; +CEFD300C PO; +CEFD300CAP PO; +CEPH500C PO; +LEVO1TAB39 PO; +NITR50CA51 PO; +OSEL75CA2 PO; -OXYB5TAB10 PO; +OXYB5TAB14 PO; +TRAN1DIS4 TOP
[2023-10-03 15:16] LABS: BASO % 0.5 % (0.0-1.0); EOS % 0.1 % (0.0-3.0); HEMATOCRIT 41.8 % (42.0-52.0); HEMOGLOBIN 13.9 g/dl (13.5-17.5); LYMPH # 0.8 10^3/uL (1.5-5.0); LYMPH % 10.7 % (24.0-44.0); MEAN CORPUSCULAR HEMOGLOBIN 28.8 pg (27.0-33.0); MEAN CORPUSCULAR HGB CONC 33.3 g/dl (32.0-36.5); MEAN CORPUSCULAR VOLUME 86.5 fl (80.0-96.0); MONO # 0.3 10^3/uL (0.0-0.8); MONO % 3.7 % (2.0-8.0); NEUTROPHILS # 6.4 10^3/uL (1.5-8.5); NEUTROPHILS % 84.7 % (36.0-66.0); PLATELET COUNT, AUTOMATED 393 10^3/uL (150-450); RED BLOOD COUNT 4.83 10^6/uL (4.30-6.10); WHITE BLOOD COUNT 7.6 10^3/uL (4.0-10.0)
[2023-10-03 15:50] LABS: ALBUMIN 3.9 G/DL (3.2-5.2); BILIRUBIN,DIRECT 0.2 MG/DL (<0.4); BILIRUBIN,TOTAL 0.4 MG/DL (0.3-1.2); TOTAL PROTEIN 7.3 G/DL (5.7-8.2)
[2023-10-03] MEDS: ONDANSETRON 4MG 2ML VIAL IV ONE (18:53)
[2023-10-03] MEDS: KETOROLAC 30 MG/ML 1ML VIAL IV ONE (18:53)
[2023-10-03] MEDS: NS 1,000 ML IV ONE (18:55)
[2023-10-03] MEDS: MORPHINE 4 MG/ML 1ML VIAL IV ONE (19:59)
[2023-10-03] MEDS: cefTRIAXone SOD 1 GM in D5W MINI-BAG PLUS 50 ML IV ONE (20:23)
[2023-10-03] MEDS ORDERED: ISOVUE-370 76% 100ML VIAL As Ordered ONE (20:58)
[2023-10-03] MEDS: METOCLOPRAMIDE INJ 10MG/2ML VIAL IV ONE (21:58)
[2023-10-03] MEDS: MORPHINE 4 MG/ML 1ML VIAL IV PRN (21:58)
[2023-10-03] MEDS ORDERED: HOME MED LIST COMPLETE! XX SCH (22:10)
[2023-10-03 23:38] LABS: RSV AMPLIFICATION NEGATIVE (NEGATIVE)
[2023-10-04] MEDS ORDERED: MOM 30ML SUSPENSION UDC PO PRN (00:15)
[2023-10-04] MEDS: MORPHINE 2 MG/ML 1ML VIAL IV PRN (00:28)
[2023-10-04] MEDS: ACETAMINOPHEN 500 MG TAB PO SCH (00:28)
[2023-10-04] MEDS: DULoxetine 30MG CAPSULE (CYMBALTA) PO SCH (00:29)
[2023-10-04 01:08] VITALS: BP 114/78; TEMP 97.7; O2SAT 98
[2023-10-04] MEDS: HEPARIN SOD (PORCINE) 5000UNITS/ML 1ML VIAL/SYRINGE SC SCH (05:52)
[2023-10-04 06:00] VITALS: BP 152/72; TEMP 98.6; O2SAT 96
[2023-10-04] MEDS: PROMETHAZINE 25MG/ML 1ML VIAL IV PRN (07:57)
[2023-10-04] MEDS: DOCUSATE SODIUM 100MG CAPSULE PO SCH (08:03)
[2023-10-04 08:42] LABS: ALBUMIN 3.4 G/DL (3.2-5.2); ALKALINE PHOSPHATASE 56 U/L (46-116); ALT/SGPT 237 U/L (7.0-40); AST/SGOT 113 U/L (<34); BILIRUBIN,TOTAL 0.6 MG/DL (0.3-1.2); BLOOD UREA NITROGEN 17 MG/DL (9-23); CALCIUM LEVEL 9.1 MG/DL (8.5-10.1); CARBON DIOXIDE LEVEL 27 MMOL/L (20-31); CHLORIDE LEVEL 104 MMOL/L (98-107); CREATININE FOR GFR 0.49 MG/DL (0.70-1.30); GLOMERULAR FILTRATION RATE > 60.0 (>60); GLUCOSE, FASTING 60 MG/DL (60-100); POTASSIUM SERUM 4.4 MMOL/L (3.5-5.1); SODIUM LEVEL 135 MMOL/L (136-145); TOTAL PROTEIN 6.4 G/DL (5.7-8.2)
[2023-10-04 09:46] LABS: HEMATOCRIT 37.2 % (42.0-52.0); HEMOGLOBIN 12.2 g/dl (13.5-17.5); MEAN CORPUSCULAR HGB CONC 32.8 g/dl (32.0-36.5); MEAN CORPUSCULAR VOLUME 88.6 fl (80.0-96.0); PLATELET COUNT, AUTOMATED 327 10^3/uL (150-450)
[2023-10-04] MEDS: LACTOBACILLUS ACIDOPHILUS CAP (BACID) PO SCH (12:01)
[2023-10-04 14:00] VITALS: BP 114/75; TEMP 98.4; O2SAT 95
[2023-10-04 20:02] VITALS: BP 113/74; TEMP 97.5; O2SAT 94
[2023-10-04] MEDS: cefTRIAXone SOD 1 GM in D5W MINI-BAG PLUS 50 ML IV SCH (21:06)
[2023-10-05 05:59] LABS: HEMATOCRIT 38.2 % (42.0-52.0); HEMOGLOBIN 12.5 g/dl (13.5-17.5); MEAN CORPUSCULAR HEMOGLOBIN 28.6 pg (27.0-33.0); MEAN CORPUSCULAR HGB CONC 32.7 g/dl (32.0-36.5); MEAN CORPUSCULAR VOLUME 87.4 fl (80.0-96.0); PLATELET COUNT, AUTOMATED 347 10^3/uL (150-450); RED BLOOD COUNT 4.37 10^6/uL (4.30-6.10); WHITE BLOOD COUNT 6.4 10^3/uL (4.0-10.0)
[2023-10-05 06:00] VITALS: BP 110/55; TEMP 97.5; O2SAT 100
[2023-10-05 06:29] LABS: ALBUMIN 3.3 G/DL (3.2-5.2); ALKALINE PHOSPHATASE 58 U/L (46-116); ALT/SGPT 338 U/L (7.0-40); AST/SGOT 164 U/L (<34); BILIRUBIN,TOTAL 0.5 MG/DL (0.3-1.2); BLOOD UREA NITROGEN 14 MG/DL (9-23); CALCIUM LEVEL 9.1 MG/DL (8.5-10.1); CARBON DIOXIDE LEVEL 28 MMOL/L (20-31); CHLORIDE LEVEL 106 MMOL/L (98-107); CREATININE FOR GFR 0.52 MG/DL (0.70-1.30); GLOMERULAR FILTRATION RATE > 60.0 (>60); GLUCOSE, FASTING 96 MG/DL (60-100); POTASSIUM SERUM 4.2 MMOL/L (3.5-5.1); SODIUM LEVEL 138 MMOL/L (136-145); TOTAL PROTEIN 6.3 G/DL (5.7-8.2)
[2023-10-05] MEDS: oxyCODONE 5MG TAB PO PRN (13:13)
[2023-10-05 14:00] VITALS: BP 123/82; TEMP 97.7; O2SAT 97
[2023-10-05 20:14] VITALS: BP 123/83; TEMP 98.1; O2SAT 99
[2023-10-05] MEDS: HYDROMORPHONE HCL 0.5 MG/ 0.5 ML SYRINGE IV PRN (23:51)
[2023-10-06 05:06] VITALS: BP 123/89; TEMP 97.7; O2SAT 95
[2023-10-06 06:22] LABS: HEMATOCRIT 39.8 % (42.0-52.0); MEAN CORPUSCULAR HEMOGLOBIN 28.6 pg (27.0-33.0); MEAN CORPUSCULAR HGB CONC 32.7 g/dl (32.0-36.5); MEAN CORPUSCULAR VOLUME 87.7 fl (80.0-96.0); PLATELET COUNT, AUTOMATED 344 10^3/uL (150-450); RED BLOOD COUNT 4.54 10^6/uL (4.30-6.10); WHITE BLOOD COUNT 4.8 10^3/uL (4.0-10.0)
[2023-10-06 06:57] LABS: ALBUMIN 3.5 G/DL (3.2-5.2); ALKALINE PHOSPHATASE 60 U/L (46-116); ALT/SGPT 244 U/L (7.0-40); AST/SGOT 61 U/L (<34); BILIRUBIN,TOTAL 0.5 MG/DL (0.3-1.2); BLOOD UREA NITROGEN 11 MG/DL (9-23); CALCIUM LEVEL 9.3 MG/DL (8.5-10.1); CARBON DIOXIDE LEVEL 29 MMOL/L (20-31); CHLORIDE LEVEL 107 MMOL/L (98-107); CREATININE FOR GFR 0.53 MG/DL (0.70-1.30); GLOMERULAR FILTRATION RATE > 60.0 (>60); GLUCOSE, FASTING 88 MG/DL (60-100); POTASSIUM SERUM 4.3 MMOL/L (3.5-5.1); SODIUM LEVEL 140 MMOL/L (136-145); TOTAL PROTEIN 6.5 G/DL (5.7-8.2)
[2023-10-06 14:00] VITALS: BP 131/79; TEMP 97.9; O2SAT 98
[2023-10-06 19:56] VITALS: BP 127/82; TEMP 97.7; O2SAT 97
[2023-10-07 05:23] VITALS: BP 128/73; TEMP 97.7; O2SAT 97
[2023-10-07 07:00] LABS: HEMATOCRIT 41.3 % (42.0-52.0); HEMOGLOBIN 13.7 g/dl (13.5-17.5); MEAN CORPUSCULAR HGB CONC 33.2 g/dl (32.0-36.5); MEAN CORPUSCULAR VOLUME 87.3 fl (80.0-96.0); PLATELET COUNT, AUTOMATED 354 10^3/uL (150-450); RED BLOOD COUNT 4.73 10^6/uL (4.30-6.10); WHITE BLOOD COUNT 5.6 10^3/uL (4.0-10.0)
[2023-10-07 08:12] LABS: ALBUMIN 3.7 G/DL (3.2-5.2); ALKALINE PHOSPHATASE 62 U/L (46-116); ALT/SGPT 187 U/L (7.0-40); AST/SGOT 27 U/L (<34); BILIRUBIN,TOTAL 0.4 MG/DL (0.3-1.2); BLOOD UREA NITROGEN 15 MG/DL (9-23); CALCIUM LEVEL 9.3 MG/DL (8.5-10.1); CARBON DIOXIDE LEVEL 29 MMOL/L (20-31); CHLORIDE LEVEL 105 MMOL/L (98-107); CREATININE FOR GFR 0.54 MG/DL (0.70-1.30); GLOMERULAR FILTRATION RATE > 60.0 (>60); GLUCOSE, FASTING 96 MG/DL (60-100); POTASSIUM SERUM 4.8 MMOL/L (3.5-5.1); SODIUM LEVEL 138 MMOL/L (136-145); TOTAL PROTEIN 6.7 G/DL (5.7-8.2)
[2023-10-07] MEDS ORDERED: CEFD1CAP9 PO (10:26)
[2023-10-07] MEDS ORDERED: METR-265 PO (10:26)
[2023-10-07] MEDS ORDERED: OXYC-517 PO (10:31)
== END 2023-10-07 11:36 | disposition home or self-care (01) | DRG 698 ==
LOC: M ED 14:06 → M ED INP 23:53 → ENRESERV 10-04 00:53 → M MSPAV 10-04 01:07
PROVIDERS: ADMIT Family Medicine; ATTEND General Practice
DX: T83.511A Infection and inflammatory reaction due to indwelling urethral catheter, initial encounter (principal); L89.153 Pressure ulcer of sacral region, stage 3; G82.20 Paraplegia, unspecified; K80.00 Calculus of gallbladder with acute cholecystitis without obstruction; B96.20 Unspecified Escherichia coli [E. coli] as the cause of diseases classified elsewhere; N39.0 Urinary tract infection, site not specified; Q05.9 Spina bifida, unspecified; N31.9 Neuromuscular dysfunction of bladder, unspecified; G43.909 Migraine, unspecified, not intractable, without status migrainosus; K59.09 Other constipation; F17.210 Nicotine dependence, cigarettes, uncomplicated; Z71.6 Tobacco abuse counseling; Z79.899 Other long term (current) drug therapy; Z88.1 Allergy status to other antibiotic agents; Z88.8 Allergy status to other drugs, medicaments and biological substances; Z91.040 Latex allergy status; Z11.52 Encounter for screening for COVID-19; Z99.3 Dependence on wheelchair

== ENCOUNTER → 2023-11-21 | Outpatient (REF) | payer MEDICARE, MEDICAID ==
[~2023-11-21] MED LIST changes: +METR-265 PO
[2023-11-21 14:04] LABS: LIPASE 29 U/L (12-53)
[2023-11-21 14:06] LABS: AMYLASE 66 U/L (30-118)
[2023-11-21 14:07] LABS: ALBUMIN 3.5 G/DL (3.2-5.2); ALKALINE PHOSPHATASE 52 U/L (46-116); ALT/SGPT 20 U/L (7.0-40); AST/SGOT < 8 U/L (<34); BILIRUBIN,TOTAL 0.2 MG/DL (0.3-1.2); BLOOD UREA NITROGEN 15 MG/DL (9-23); CALCIUM LEVEL 9.9 MG/DL (8.5-10.1); CARBON DIOXIDE LEVEL 29 MMOL/L (20-31); CHLORIDE LEVEL 107 MMOL/L (98-107); CREATININE FOR GFR 0.59 MG/DL (0.70-1.30); GLOMERULAR FILTRATION RATE > 60.0 (>60); GLUCOSE, FASTING 91 MG/DL (60-100); POTASSIUM SERUM 4.8 MMOL/L (3.5-5.1); SODIUM LEVEL 142 MMOL/L (136-145); TOTAL PROTEIN 6.7 G/DL (5.7-8.2)
[2023-11-21 14:13] LABS: BASO # 0.1 10^3/uL (0.0-0.2); BASO % 1.1 % (0.0-1.0); EOS # 0.3 10^3/uL (0.0-0.5); EOS % 6.1 % (0.0-3.0); HEMATOCRIT 43.2 % (42.0-52.0); LYMPH # 1.1 10^3/uL (1.5-5.0); LYMPH % 21.2 % (24.0-44.0); MEAN CORPUSCULAR HEMOGLOBIN 29.3 pg (27.0-33.0); MEAN CORPUSCULAR HGB CONC 32.4 g/dl (32.0-36.5); MEAN CORPUSCULAR VOLUME 90.4 fl (80.0-96.0); MONO # 0.3 10^3/uL (0.0-0.8); MONO % 6.4 % (2.0-8.0); NEUTROPHILS # 3.4 10^3/uL (1.5-8.5); PLATELET COUNT, AUTOMATED 352 10^3/uL (150-450); RED BLOOD COUNT 4.78 10^6/uL (4.30-6.10); WHITE BLOOD COUNT 5.3 10^3/uL (4.0-10.0)
== END ==
LOC: M LAB REF 12:42
PROVIDERS: ATTEND Family Medicine Addiction Medicine
DX: K80.20 Calculus of gallbladder without cholecystitis without obstruction (principal)

== ENCOUNTER 2024-01-13 15:01 | Emergency (ER) | payer MEDICARE, MEDICAID ==
[~2024-01-13] VITALS: Ht 154.9 cm; Wt 54.5 kg
[~2024-01-13 15:01] MED LIST changes: +ONDA-282 PO; -ONDA4TAB6 PO
[2024-01-13 15:02] VITALS: BP 140/86; TEMP 98.6; O2SAT 99
[2024-01-13 17:07] LABS: BASO # 0.1 10^3/uL (0.0-0.2); BASO % 1.1 % (0.0-1.0); EOS # 0.4 10^3/uL (0.0-0.5); EOS % 5.2 % (0.0-3.0); HEMATOCRIT 42.3 % (42.0-52.0); HEMOGLOBIN 13.9 g/dl (13.5-17.5); LYMPH # 1.8 10^3/uL (1.5-5.0); LYMPH % 21.8 % (24.0-44.0); MEAN CORPUSCULAR HEMOGLOBIN 28.7 pg (27.0-33.0); MEAN CORPUSCULAR HGB CONC 32.9 g/dl (32.0-36.5); MEAN CORPUSCULAR VOLUME 87.4 fl (80.0-96.0); MONO # 0.5 10^3/uL (0.0-0.8); MONO % 5.7 % (2.0-8.0); NEUTROPHILS # 5.4 10^3/uL (1.5-8.5); NEUTROPHILS % 65.8 % (36.0-66.0); PLATELET COUNT, AUTOMATED 376 10^3/uL (150-450); RED BLOOD COUNT 4.84 10^6/uL (4.30-6.10); WHITE BLOOD COUNT 8.2 10^3/uL (4.0-10.0)
[2024-01-13 17:19] LABS: LIPASE 81 U/L (12-53)
[2024-01-13 17:21] LABS: ALKALINE PHOSPHATASE 63 U/L (46-116); ALT/SGPT 24 U/L (7.0-40); AST/SGOT 9 U/L (<34); BILIRUBIN,DIRECT 0.1 MG/DL (<0.4); BILIRUBIN,TOTAL 0.4 MG/DL (0.3-1.2); BLOOD UREA NITROGEN 13 MG/DL (9-23); CALCIUM LEVEL 9.9 MG/DL (8.5-10.1); CARBON DIOXIDE LEVEL 29 MMOL/L (20-31); CHLORIDE LEVEL 104 MMOL/L (98-107); CREATININE FOR GFR 0.58 MG/DL (0.70-1.30); GLOMERULAR FILTRATION RATE > 60.0 (>60); GLUCOSE, FASTING 103 MG/DL (60-100); POTASSIUM SERUM 4.7 MMOL/L (3.5-5.1); SODIUM LEVEL 137 MMOL/L (136-145); TOTAL PROTEIN 7.3 G/DL (5.7-8.2)
[2024-01-13] MEDS ORDERED: ACETAMINOPHEN TAB 650MG DOSE (2X325MG) PO ONE (17:55)
== END 2024-01-13 18:02 | disposition left against medical advice (07) ==
LOC: M ED 15:01
DX: Z53.21 Procedure and treatment not carried out due to patient leaving prior to being seen by health care provider (principal)

== ENCOUNTER → 2024-02-07 | Outpatient (CLI) | payer MEDICARE, MEDICAID | LOC: M RAD 11:04 | PROVIDERS: ATTEND Urology | DX: N20.0 Calculus of kidney (principal) ==

== ENCOUNTER 2024-04-21 13:21 | Inpatient (IN) | payer MEDICARE, MEDICAID ==
[~2024-04-21] VITALS: Ht 162.6 cm; Wt 52.3 kg
[2024-04-21 14:50] LABS: BASO # 0.1 10^3/uL (0.0-0.2); BASO % 0.6 % (0.0-1.0); EOS # 0.5 10^3/uL (0.0-0.5); EOS % 3.2 % (0.0-3.0); HEMATOCRIT 39.3 % (42.0-52.0); HEMOGLOBIN 13.1 g/dl (13.5-17.5); LYMPH # 1.2 10^3/uL (1.5-5.0); LYMPH % 7.6 % (24.0-44.0); MEAN CORPUSCULAR HEMOGLOBIN 28.1 pg (27.0-33.0); MEAN CORPUSCULAR HGB CONC 33.3 g/dl (32.0-36.5); MEAN CORPUSCULAR VOLUME 84.3 fl (80.0-96.0); MONO # 0.7 10^3/uL (0.0-0.8); MONO % 4.6 % (2.0-8.0); NEUTROPHILS # 12.9 10^3/uL (1.5-8.5); NEUTROPHILS % 83.7 % (36.0-66.0); PLATELET COUNT, AUTOMATED 538 10^3/uL (150-450); RED BLOOD COUNT 4.66 10^6/uL (4.30-6.10); WHITE BLOOD COUNT 15.5 10^3/uL (4.0-10.0)
[2024-04-21] MEDS: ONDANSETRON 4MG 2ML VIAL IV ONE (14:57)
[2024-04-21] MEDS: MORPHINE 4 MG/ML 1ML VIAL IV PRN (14:58)
[2024-04-21] MEDS ORDERED: PERCOCET PO (16:23)
[2024-04-21] MEDS ORDERED: NITR100C2 PO (16:23)
[2024-04-21] MEDS ORDERED: HOME MED LIST COMPLETE! XX SCH (16:25)
[2024-04-21 16:39] LABS: ALBUMIN 3.2 G/DL (3.2-5.2); ALKALINE PHOSPHATASE 68 U/L (46-116); ALT/SGPT 9 U/L (7.0-40); AST/SGOT < 8 U/L (<34); BILIRUBIN,DIRECT 0.1 MG/DL (<0.4); BILIRUBIN,TOTAL 0.3 MG/DL (0.3-1.2); BLOOD UREA NITROGEN 9 MG/DL (9-23); CALCIUM LEVEL 9.1 MG/DL (8.5-10.1); CARBON DIOXIDE LEVEL 29 MMOL/L (20-31); CHLORIDE LEVEL 105 MMOL/L (98-107); CREATININE FOR GFR 0.55 MG/DL (0.70-1.30); GLOMERULAR FILTRATION RATE > 60.0 (>60); GLUCOSE, FASTING 84 MG/DL (60-100); POTASSIUM SERUM 4.3 MMOL/L (3.5-5.1); SODIUM LEVEL 138 MMOL/L (136-145); TOTAL PROTEIN 6.8 G/DL (5.7-8.2)
[2024-04-21] MEDS ORDERED: MOM 30ML SUSPENSION UDC PO PRN (17:10)
[2024-04-21] MEDS ORDERED: MIRALAX *UNIT DOSE* 17GM PACKET PO PRN (17:10)
[2024-04-21] MEDS ORDERED: PERCOCET 5MG/325MG TAB PO PRN (17:10)
[2024-04-21] MEDS ORDERED: ACETAMINOPHEN 325 MG TAB PO PRN (17:10)
[2024-04-21] MEDS ORDERED: SENOKOT S TAB PO PRN (17:10)
[2024-04-21] MEDS: NS 1,000 ML IV ONE (17:15)
[2024-04-21 18:00] VITALS: BP 145/90; TEMP 98.1; O2SAT 99
[2024-04-21] MEDS: SENOKOT S TAB PO ONE (18:02)
[2024-04-21] MEDS: MOM 30ML SUSPENSION UDC PO ONE (18:02)
[2024-04-21] MEDS ORDERED: oxyBUTYnin 5 MG TAB PO PRN (18:20)
[2024-04-21] MEDS: PIPERACILLIN/TAZOBACTAM SOD 4.5 GM in D5W MINI-BAG PLUS 50 ML IV SCH (18:46)
[2024-04-21] MEDS: LACTOBACILLUS ACIDOPHILUS CAP (BACID) PO SCH (18:46)
[2024-04-21] MEDS: ACETAMINOPHEN 500 MG TAB PO SCH (18:51)
[2024-04-21] MEDS: HYDROMORPHONE HCL 0.5 MG/ 0.5 ML SYRINGE IV ONE ×2 (18:52→22:20)
[2024-04-21] MEDS: ENOXAPARIN 40MG/0.4ML SYRINGE (J1650 PER 10MG) SC ONE (18:55)
[2024-04-21] MEDS: oxyCODONE 5MG TAB PO PRN (19:55)
[2024-04-21] MEDS: LR 1,000 ML IV SCH (19:56)
[2024-04-21 20:00] VITALS: BP 124/80; TEMP 97.3; O2SAT 96
[2024-04-21] MEDS: LIDOCAINE 5% (LIDODERM) PATCH TD SCH (21:00)
[2024-04-21] MEDS: PHENAZOPYRIDINE 100 MG TAB PO SCH (21:22)
[2024-04-21] MEDS ORDERED: KETOROLAC 30 MG/ML 1ML VIAL IV ONE (22:05)
[2024-04-22] MEDS: ONDANSETRON 4MG 2ML VIAL IV PRN (05:17)
[2024-04-22 06:33] VITALS: BP 120/62; TEMP 98.1; O2SAT 98
[2024-04-22 07:02] LABS: BASO # 0.1 10^3/uL (0.0-0.2); BASO % 0.9 % (0.0-1.0); EOS # 0.9 10^3/uL (0.0-0.5); EOS % 7.3 % (0.0-3.0); HEMATOCRIT 33.3 % (42.0-52.0); LYMPH # 1.2 10^3/uL (1.5-5.0); LYMPH % 10.4 % (24.0-44.0); MEAN CORPUSCULAR HEMOGLOBIN 28.3 pg (27.0-33.0); MEAN CORPUSCULAR VOLUME 85.6 fl (80.0-96.0); MONO # 1.1 10^3/uL (0.0-0.8); MONO % 9.3 % (2.0-8.0); NEUTROPHILS # 8.5 10^3/uL (1.5-8.5); NEUTROPHILS % 71.7 % (36.0-66.0); PLATELET COUNT, AUTOMATED 392 10^3/uL (150-450); RED BLOOD COUNT 3.89 10^6/uL (4.30-6.10); WHITE BLOOD COUNT 11.9 10^3/uL (4.0-10.0)
[2024-04-22 07:23] LABS: BLOOD UREA NITROGEN 8 MG/DL (9-23); CALCIUM LEVEL 9.1 MG/DL (8.5-10.1); CARBON DIOXIDE LEVEL 28 MMOL/L (20-31); CHLORIDE LEVEL 105 MMOL/L (98-107); CREATININE FOR GFR 0.61 MG/DL (0.70-1.30); GLOMERULAR FILTRATION RATE > 60.0 (>60); GLUCOSE, FASTING 100 MG/DL (60-100); POTASSIUM SERUM 4.6 MMOL/L (3.5-5.1); SODIUM LEVEL 137 MMOL/L (136-145)
[2024-04-22] MEDS ORDERED: NALOXONE INJ 0.4MG/1ML VIAL IV PRN (09:40)
[2024-04-22] MEDS: oxyCODONE 5MG TAB PO ONE ×3 (10:34→20:05)
[2024-04-22 12:00] VITALS: BP 123/80; TEMP 98.1; O2SAT 97
[2024-04-22] MEDS: ENOXAPARIN 40MG/0.4ML SYRINGE (J1650 PER 10MG) SC SCH (21:00)
[2024-04-22] MEDS: HYDROMORPHONE HCL 0.5 MG/ 0.5 ML SYRINGE IV ONE (22:29)
[2024-04-23 00:21] VITALS: BP 120/71; TEMP 97.9; O2SAT 98
[2024-04-23] MEDS: NORCO, ANEXSIA 5/325MG TABLET (HYDROcodone/ACETAMINOPHEN) PO ONE (02:40)
[2024-04-23 07:12] LABS: BASO # 0.1 10^3/uL (0.0-0.2); BASO % 1.1 % (0.0-1.0); EOS # 0.8 10^3/uL (0.0-0.5); EOS % 9.6 % (0.0-3.0); HEMOGLOBIN 12.6 g/dl (13.5-17.5); LYMPH # 1.1 10^3/uL (1.5-5.0); LYMPH % 13.1 % (24.0-44.0); MEAN CORPUSCULAR HGB CONC 32.3 g/dl (32.0-36.5); MEAN CORPUSCULAR VOLUME 83.5 fl (80.0-96.0); MONO # 0.7 10^3/uL (0.0-0.8); MONO % 7.6 % (2.0-8.0); NEUTROPHILS # 5.8 10^3/uL (1.5-8.5); NEUTROPHILS % 68.2 % (36.0-66.0); PLATELET COUNT, AUTOMATED 450 10^3/uL (150-450); RED BLOOD COUNT 4.67 10^6/uL (4.30-6.10); WHITE BLOOD COUNT 8.5 10^3/uL (4.0-10.0)
[2024-04-23 07:50] LABS: BLOOD UREA NITROGEN 8 MG/DL (9-23); CALCIUM LEVEL 9.8 MG/DL (8.5-10.1); CARBON DIOXIDE LEVEL 30 MMOL/L (20-31); CHLORIDE LEVEL 102 MMOL/L (98-107); CREATININE FOR GFR 0.63 MG/DL (0.70-1.30); GLOMERULAR FILTRATION RATE > 60.0 (>60); GLUCOSE, FASTING 103 MG/DL (60-100); POTASSIUM SERUM 4.8 MMOL/L (3.5-5.1); SODIUM LEVEL 136 MMOL/L (136-145)
[2024-04-23] MEDS ORDERED: RISATAB3 PO (10:37)
[2024-04-23] MEDS ORDERED: PHEN1TAB73 PO (10:37)
[2024-04-23] MEDS: oxyCODONE 5MG TAB PO ONE (11:07)
[2024-04-23] MEDS: LevoFLOXacin 750 MG TABLET PO SCH (11:49)
[2024-04-23 12:00] VITALS: BP 156/61; TEMP 97.3; O2SAT 97
[2024-04-23] MEDS: oxyCODONE 5MG TAB PO PRN (15:24)
[2024-04-23 16:24] LABS: IMMUNOGLOBULIN A 539.9 MG/DL (40-350)
[2024-04-23 20:01] VITALS: BP 126/81; TEMP 97.3; O2SAT 99
[2024-04-24 04:01] VITALS: BP 126/84; TEMP 97.7; O2SAT 96
[2024-04-24 07:08] LABS: BASO # 0.1 10^3/uL (0.0-0.2); BASO % 0.9 % (0.0-1.0); EOS # 0.7 10^3/uL (0.0-0.5); HEMATOCRIT 41.5 % (42.0-52.0); HEMOGLOBIN 13.6 g/dl (13.5-17.5); LYMPH # 1.2 10^3/uL (1.5-5.0); LYMPH % 14.4 % (24.0-44.0); MEAN CORPUSCULAR HEMOGLOBIN 27.5 pg (27.0-33.0); MEAN CORPUSCULAR HGB CONC 32.8 g/dl (32.0-36.5); MEAN CORPUSCULAR VOLUME 83.8 fl (80.0-96.0); MONO # 0.5 10^3/uL (0.0-0.8); MONO % 6.2 % (2.0-8.0); NEUTROPHILS % 70.1 % (36.0-66.0); PLATELET COUNT, AUTOMATED 479 10^3/uL (150-450); RED BLOOD COUNT 4.95 10^6/uL (4.30-6.10); WHITE BLOOD COUNT 8.6 10^3/uL (4.0-10.0)
[2024-04-24 07:31] LABS: BLOOD UREA NITROGEN 11 MG/DL (9-23); CALCIUM LEVEL 10.3 MG/DL (8.5-10.1); CARBON DIOXIDE LEVEL 29 MMOL/L (20-31); CHLORIDE LEVEL 101 MMOL/L (98-107); GLOMERULAR FILTRATION RATE > 60.0 (>60); GLUCOSE, FASTING 113 MG/DL (60-100); POTASSIUM SERUM 4.9 MMOL/L (3.5-5.1); SODIUM LEVEL 137 MMOL/L (136-145)
[2024-04-24 08:54] VITALS: TEMP 98.2
[2024-04-24 12:00] VITALS: BP 142/92; TEMP 98.2; O2SAT 100
[2024-04-24] MEDS ORDERED: PIPERACILLIN/TAZOBACTAM SOD 3.375 GM in D5W MINI-BAG PLUS 50 ML IV SCH (13:50)
[2024-04-24] MEDS: MORPHINE 2 MG/ML 1ML VIAL IV ONE (20:47)
[2024-04-24 21:36] VITALS: BP 123/90; TEMP 97.3; O2SAT 100
[2024-04-25 04:59] VITALS: BP 128/89; TEMP 97.5; O2SAT 100
[2024-04-25] MEDS: LevoFLOXacin IV 750 MG in IV 1 EA IV SCH (06:23)
[2024-04-25 08:21] LABS: BASO # 0.1 10^3/uL (0.0-0.2); BASO % 1.2 % (0.0-1.0); EOS # 0.8 10^3/uL (0.0-0.5); HEMATOCRIT 42.7 % (42.0-52.0); HEMOGLOBIN 13.8 g/dl (13.5-17.5); LYMPH # 1.2 10^3/uL (1.5-5.0); LYMPH % 17.9 % (24.0-44.0); MEAN CORPUSCULAR HEMOGLOBIN 27.2 pg (27.0-33.0); MEAN CORPUSCULAR HGB CONC 32.3 g/dl (32.0-36.5); MEAN CORPUSCULAR VOLUME 84.2 fl (80.0-96.0); MONO # 0.5 10^3/uL (0.0-0.8); MONO % 6.8 % (2.0-8.0); NEUTROPHILS # 4.4 10^3/uL (1.5-8.5); NEUTROPHILS % 62.8 % (36.0-66.0); PLATELET COUNT, AUTOMATED 461 10^3/uL (150-450); RED BLOOD COUNT 5.07 10^6/uL (4.30-6.10); WHITE BLOOD COUNT 6.9 10^3/uL (4.0-10.0)
[2024-04-25 08:51] LABS: BLOOD UREA NITROGEN 15 MG/DL (9-23); CARBON DIOXIDE LEVEL 30 MMOL/L (20-31); CHLORIDE LEVEL 101 MMOL/L (98-107); CREATININE FOR GFR 0.69 MG/DL (0.70-1.30); GLOMERULAR FILTRATION RATE > 60.0 (>60); GLUCOSE, FASTING 97 MG/DL (60-100); POTASSIUM SERUM 4.8 MMOL/L (3.5-5.1); SODIUM LEVEL 136 MMOL/L (136-145)
[2024-04-25 12:00] VITALS: BP 128/76; TEMP 98.1; O2SAT 96
[2024-04-25 20:33] VITALS: BP 156/90; TEMP 98.1; O2SAT 98
[2024-04-26 00:31] VITALS: O2SAT 98
[2024-04-26 04:24] VITALS: BP 138/85; TEMP 97.9
[2024-04-26 07:30] LABS: BASO # 0.1 10^3/uL (0.0-0.2); BASO % 0.8 % (0.0-1.0); EOS # 0.6 10^3/uL (0.0-0.5); EOS % 10.4 % (0.0-3.0); HEMOGLOBIN 14.7 g/dl (13.5-17.5); LYMPH # 1.4 10^3/uL (1.5-5.0); LYMPH % 23.7 % (24.0-44.0); MEAN CORPUSCULAR HEMOGLOBIN 27.9 pg (27.0-33.0); MEAN CORPUSCULAR VOLUME 87.3 fl (80.0-96.0); MONO # 0.4 10^3/uL (0.0-0.8); MONO % 6.3 % (2.0-8.0); NEUTROPHILS # 3.5 10^3/uL (1.5-8.5); NEUTROPHILS % 58.3 % (36.0-66.0); PLATELET COUNT, AUTOMATED 306 10^3/uL (150-450); RED BLOOD COUNT 5.27 10^6/uL (4.30-6.10)
[2024-04-26 07:44] LABS: BLOOD UREA NITROGEN 16 MG/DL (9-23); CALCIUM LEVEL 10.1 MG/DL (8.5-10.1); CARBON DIOXIDE LEVEL 26 MMOL/L (20-31); CHLORIDE LEVEL 104 MMOL/L (98-107); CREATININE FOR GFR 0.64 MG/DL (0.70-1.30); GLOMERULAR FILTRATION RATE > 60.0 (>60); GLUCOSE, FASTING 91 MG/DL (60-100); POTASSIUM SERUM 4.4 MMOL/L (3.5-5.1); SODIUM LEVEL 138 MMOL/L (136-145)
== END 2024-04-26 13:05 | disposition home or self-care (01) | DRG 698 ==
LOC: M ED 13:21 → M ED INP 16:50 → M MS5PR 18:05
PROVIDERS: ADMIT General Practice; ATTEND Hospitalist
DX: T83.511A Infection and inflammatory reaction due to indwelling urethral catheter, initial encounter (principal); E43 Unspecified severe protein-calorie malnutrition; L89.153 Pressure ulcer of sacral region, stage 3; G82.20 Paraplegia, unspecified; N39.0 Urinary tract infection, site not specified; Q05.9 Spina bifida, unspecified; N31.9 Neuromuscular dysfunction of bladder, unspecified; Z99.3 Dependence on wheelchair; Z91.040 Latex allergy status; Z88.8 Allergy status to other drugs, medicaments and biological substances; G43.909 Migraine, unspecified, not intractable, without status migrainosus; Z86.16 Personal history of COVID-19; K59.00 Constipation, unspecified; F17.210 Nicotine dependence, cigarettes, uncomplicated; N20.0 Calculus of kidney; F12.90 Cannabis use, unspecified, uncomplicated; K80.20 Calculus of gallbladder without cholecystitis without obstruction; Y84.6 Urinary catheterization as the cause of abnormal reaction of the patient, or of later complication, without mention of misadventure at the time of the procedure

== ENCOUNTER → 2024-05-02 | Outpatient (REF) | payer MEDICARE, MEDICAID ==
[~2024-05-02] MED LIST changes: +NITR100C2 PO; +PHEN1TAB73 PO; +RISATAB3 PO
== END ==
LOC: M LAB REF 16:25
PROVIDERS: ATTEND Family Medicine Addiction Medicine
DX: N39.0 Urinary tract infection, site not specified (principal)

== ENCOUNTER → 2024-05-22 | Outpatient (CLI) | payer MEDICARE, MEDICAID ==
[2024-05-22 16:08] LABS: BASO # 0.1 10^3/uL (0.0-0.2); BASO % 1.2 % (0.0-1.0); EOS # 0.7 10^3/uL (0.0-0.5); HEMATOCRIT 38.5 % (42.0-52.0); HEMOGLOBIN 12.6 g/dl (13.5-17.5); LYMPH # 1.3 10^3/uL (1.5-5.0); LYMPH % 16.7 % (24.0-44.0); MEAN CORPUSCULAR HEMOGLOBIN 27.8 pg (27.0-33.0); MEAN CORPUSCULAR HGB CONC 32.7 g/dl (32.0-36.5); MEAN CORPUSCULAR VOLUME 84.8 fl (80.0-96.0); MONO # 0.3 10^3/uL (0.0-0.8); MONO % 4.1 % (2.0-8.0); NEUTROPHILS # 5.3 10^3/uL (1.5-8.5); NEUTROPHILS % 68.7 % (36.0-66.0); PLATELET COUNT, AUTOMATED 357 10^3/uL (150-450); RED BLOOD COUNT 4.54 10^6/uL (4.30-6.10); WHITE BLOOD COUNT 7.7 10^3/uL (4.0-10.0)
[2024-05-22 16:46] LABS: ALBUMIN 3.3 G/DL (3.2-5.2); ALKALINE PHOSPHATASE 64 U/L (40-129); ALT/SGPT 36 U/L (7.0-40); AST/SGOT < 8 U/L (<34); BILIRUBIN,TOTAL 0.3 MG/DL (0.3-1.2); BLOOD UREA NITROGEN 8 MG/DL (9-23); CALCIUM LEVEL 9.8 MG/DL (8.5-10.1); CARBON DIOXIDE LEVEL 29 MMOL/L (20-31); CHLORIDE LEVEL 105 MMOL/L (98-107); CREATININE FOR GFR 0.48 MG/DL (0.70-1.30); GLOMERULAR FILTRATION RATE > 60.0 (>60); GLUCOSE, FASTING 109 MG/DL (60-100); POTASSIUM SERUM 3.9 MMOL/L (3.5-5.1); SODIUM LEVEL 139 MMOL/L (136-145); TOTAL PROTEIN 6.9 G/DL (5.7-8.2)
== END ==
LOC: M LAB 15:47
PROVIDERS: ATTEND Urology
DX: N20.0 Calculus of kidney (principal); Z90.5 Acquired absence of kidney; N39.0 Urinary tract infection, site not specified

== ENCOUNTER 2024-09-25 17:09 | Inpatient (IN) | payer MEDICARE, MEDICAID ==
[~2024-09-25] VITALS: Ht 154.9 cm; Wt 50.0 kg
[~2024-09-25 17:09] MED LIST changes: -LEVO750T14 PO; +LEVO75TAB PO
[2024-09-25 18:15] LABS: BASO # 0.1 10^3/uL (0.0-0.2); BASO % 0.9 % (0.0-1.0); EOS # 0.2 10^3/uL (0.0-0.5); EOS % 1.8 % (0.0-3.0); HEMOGLOBIN 12.1 g/dl (13.5-17.5); LYMPH # 1.5 10^3/uL (1.5-5.0); LYMPH % 16.7 % (24.0-44.0); MEAN CORPUSCULAR HEMOGLOBIN 26.8 pg (27.0-33.0); MEAN CORPUSCULAR HGB CONC 32.7 g/dl (32.0-36.5); MONO # 0.5 10^3/uL (0.0-0.8); MONO % 5.1 % (2.0-8.0); NEUTROPHILS # 6.6 10^3/uL (1.5-8.5); NEUTROPHILS % 75.2 % (36.0-66.0); PLATELET COUNT, AUTOMATED 436 10^3/uL (150-450); RED BLOOD COUNT 4.51 10^6/uL (4.30-6.10); WHITE BLOOD COUNT 8.8 10^3/uL (4.0-10.0)
[2024-09-25 18:18] LABS: KETONE, URINE AUTO RFX NEGATIVE (NEGATIVE); LEUKOCYTE ESTERASE UR AUTO RFX 3+ (NEGATIVE); NITRITE, URINE AUTO RFX NEGATIVE (NEGATIVE); RBC, URINE AUTO RFX 7 /HPF (0-3); SQUAM EPITHELIAL CELL UR AURFX 0 /HPF (0-6); WBC, URINE AUTO RFX 19 /HPF (0-3)
[2024-09-25 18:44] LABS: BLOOD UREA NITROGEN 12 MG/DL (9-23); CALCIUM LEVEL 9.5 MG/DL (8.5-10.1); CARBON DIOXIDE LEVEL 29 MMOL/L (20-31); CHLORIDE LEVEL 104 MMOL/L (98-107); CREATININE FOR GFR 0.44 MG/DL (0.70-1.30); GLOMERULAR FILTRATION RATE > 60.0 (>60); GLUCOSE, FASTING 89 MG/DL (60-100); POTASSIUM SERUM 4.2 MMOL/L (3.5-5.1); SODIUM LEVEL 141 MMOL/L (136-145)
[2024-09-25] MEDS: ONDANSETRON 4MG 2ML VIAL IV ONE (21:50)
[2024-09-25] MEDS: MORPHINE 4 MG/ML 1ML VIAL IV ONE (21:53)
[2024-09-25] MEDS: NS (Normal Saline) 0.9% 1,000 ML IV ONE (21:58)
[2024-09-25] MEDS: PIPERACILLIN/TAZOBACTAM SOD 4.5 GM in DEXTROSE 5% (D5W) ADV/MINI-BAG 50 ML IV ONE (21:58)
[2024-09-26] MEDS ORDERED: OXYC10TA12 PO (00:45)
[2024-09-26] MEDS ORDERED: ZOLP10TA2 PO (00:45)
[2024-09-26] MEDS ORDERED: LAMO100T3 PO (00:45)
[2024-09-26] MEDS ORDERED: zolPIDEM TARTRATE 5 MG TAB PO PRN (00:50)
[2024-09-26] MEDS ORDERED: HOME MED LIST COMPLETE! XX SCH (00:50)
[2024-09-26] MEDS: LevoFLOXacin IV 750 MG in IV 1 EA IV ONE (00:55)
[2024-09-26] MEDS: HYDROMORPHONE HCL 0.5 MG/ 0.5 ML SYRINGE IV PRN (00:59)
[2024-09-26] MEDS ORDERED: LR 1,000 ML IV SCH (01:15)
[2024-09-26] MEDS: oxyCODONE 5MG TAB PO SCH (02:59)
[2024-09-26] MEDS: PIPERACILLIN/TAZOBACTAM SOD 3.375 GM in DEXTROSE 5% (D5W) ADV/MINI-BAG 50 ML IV SCH (04:10)
[2024-09-26] MEDS: NS (Normal Saline) 0.9% 1,000 ML IV SCH (04:10)
[2024-09-26] MEDS: ENOXAPARIN 40MG/0.4ML SYRINGE (J1650 PER 10MG) SC SCH (08:26)
[2024-09-26] MEDS: lamoTRIgine 100MG TAB PO SCH (08:26)
[2024-09-26] MEDS: ONDANSETRON 4MG 2ML VIAL IV PRN (10:30)
[2024-09-26 11:19] LABS: ALBUMIN 3.1 G/DL (3.2-5.2); ALKALINE PHOSPHATASE 58 U/L (40-129); ALT/SGPT 16 U/L (7.0-40); AST/SGOT 9 U/L (<34); BILIRUBIN,TOTAL 0.4 MG/DL (0.3-1.2); BLOOD UREA NITROGEN 10 MG/DL (9-23); CALCIUM LEVEL 9.1 MG/DL (8.5-10.1); CARBON DIOXIDE LEVEL 29 MMOL/L (20-31); CHLORIDE LEVEL 105 MMOL/L (98-107); CREATININE FOR GFR 0.61 MG/DL (0.70-1.30); GLOMERULAR FILTRATION RATE > 60.0 (>60); GLUCOSE, FASTING 97 MG/DL (60-100); POTASSIUM SERUM 4.7 MMOL/L (3.5-5.1); SODIUM LEVEL 142 MMOL/L (136-145); TOTAL PROTEIN 6.7 G/DL (5.7-8.2)
[2024-09-26 12:05] LABS: PROCALCITONIN 0.04 ng/ml
[2024-09-26 19:45] VITALS: BP 119/83; TEMP 97.9; O2SAT 97
[2024-09-26] MEDS: ACETAMINOPHEN *IV* 1,000 MG in IV 1 EA IV PRN (20:20)
[2024-09-27] MEDS: LevoFLOXacin IV 750 MG in IV 1 EA IV SCH (00:02)
[2024-09-27] MEDS: HYDROMORPHONE HCL 0.5 MG/ 0.5 ML SYRINGE IV ONE ×2 (00:03→04:58)
[2024-09-27 04:00] VITALS: BP 133/75; TEMP 97.7; O2SAT 97
[2024-09-27 06:09] LABS: HEMATOCRIT 34.6 % (42.0-52.0); MEAN CORPUSCULAR HEMOGLOBIN 26.5 pg (27.0-33.0); MEAN CORPUSCULAR HGB CONC 31.8 g/dl (32.0-36.5); MEAN CORPUSCULAR VOLUME 83.4 fl (80.0-96.0); PLATELET COUNT, AUTOMATED 406 10^3/uL (150-450); RED BLOOD COUNT 4.15 10^6/uL (4.30-6.10); WHITE BLOOD COUNT 5.6 10^3/uL (4.0-10.0)
[2024-09-27 06:37] LABS: BLOOD UREA NITROGEN 10 MG/DL (9-23); CARBON DIOXIDE LEVEL 27 MMOL/L (20-31); CHLORIDE LEVEL 104 MMOL/L (98-107); CREATININE FOR GFR 0.67 MG/DL (0.70-1.30); GLOMERULAR FILTRATION RATE > 60.0 (>60); GLUCOSE, FASTING 115 MG/DL (60-100); POTASSIUM SERUM 4.9 MMOL/L (3.5-5.1); SODIUM LEVEL 141 MMOL/L (136-145)
[2024-09-27] MEDS: cefTRIAXone SOD 1 GM in DEXTROSE 5% (D5W) ADV/MINI-BAG 50 ML IV SCH (09:23)
[2024-09-27 12:30] VITALS: BP 122/81; TEMP 98.1; O2SAT 99
[2024-09-27] MEDS: ACETAMINOPHEN 325 MG TAB PO PRN (15:11)
[2024-09-27 19:25] VITALS: BP 145/93; TEMP 98.4; O2SAT 99
[2024-09-27] MEDS: METOCLOPRAMIDE INJ 10MG/2ML VIAL IV ONE (21:09)
[2024-09-28 04:04] VITALS: BP 129/90; TEMP 97.7; O2SAT 96
[2024-09-28] MEDS ORDERED: MAALOX 30 ML SUSP *UDC PO PRN (09:15)
[2024-09-28] MEDS ORDERED: IBUPROFEN 800 MG TAB PO PRN (09:20)
[2024-09-28] MEDS: PANTOPRAZOLE 40MG VIAL IV SCH (10:17)
[2024-09-28 12:15] VITALS: BP 120/83; TEMP 97.9; O2SAT 98
[2024-09-28] MEDS: METOCLOPRAMIDE INJ 10MG/2ML VIAL IV PRN (14:48)
[2024-09-28] MEDS: oxyCODONE 5MG TAB PO PRN (16:12)
[2024-09-28 19:42] VITALS: BP 136/94; TEMP 97.9; O2SAT 99
[2024-09-29 03:42] VITALS: BP 124/75; TEMP 97.7; O2SAT 98
[2024-09-29] MEDS ORDERED: AMOX875T2 PO (10:10)
[2024-09-29] MEDS ORDERED: ACID1CAP5 PO (10:11)
[2024-09-29] MEDS ORDERED: PANT20TA6 PO (10:11)
[2024-09-29 12:00] VITALS: BP 122/75; TEMP 97.6; O2SAT 98
[2024-09-29 12:54] VITALS: O2SAT 97
== END 2024-09-29 18:30 | disposition home health service (06) | DRG 698 ==
LOC: M ED 17:09 → M ED INP 09-26 00:46 → M MS5PR 09-26 19:37
PROVIDERS: ADMIT Internal Medicine; ATTEND Student in an Organized Health Care Education/Training Program
DX: T83.518A Infection and inflammatory reaction due to other urinary catheter, initial encounter (principal); L89.153 Pressure ulcer of sacral region, stage 3; N10 Acute pyelonephritis; G82.20 Paraplegia, unspecified; E46 Unspecified protein-calorie malnutrition; B96.20 Unspecified Escherichia coli [E. coli] as the cause of diseases classified elsewhere; Q05.9 Spina bifida, unspecified; L89.319 Pressure ulcer of right buttock, unspecified stage; L89.329 Pressure ulcer of left buttock, unspecified stage; F17.200 Nicotine dependence, unspecified, uncomplicated; M24.459 Recurrent dislocation, unspecified hip; G89.29 Other chronic pain; N31.9 Neuromuscular dysfunction of bladder, unspecified; G43.909 Migraine, unspecified, not intractable, without status migrainosus; Z90.5 Acquired absence of kidney; Z99.3 Dependence on wheelchair; Z86.16 Personal history of COVID-19; Z79.899 Other long term (current) drug therapy; Z88.1 Allergy status to other antibiotic agents; Z88.8 Allergy status to other drugs, medicaments and biological substances; Z91.040 Latex allergy status; Z79.891 Long term (current) use of opiate analgesic; K31.84 Gastroparesis

== ENCOUNTER 2024-12-03 13:13 | Inpatient (IN) | payer MEDICARE, MEDICAID ==
[~2024-12-03] VITALS: Ht 154.9 cm; Wt 50.2 kg
[~2024-12-03 13:13] MED LIST changes: +ACID1CAP5 PO; +AMOX875T2 PO; -FLOM0.4C39 PO; +LAMO100T3 PO; +PANT20TA6 PO; +PREG-35 PO; -PREG100CA PO; +TAMS-18 PO; +ZOLP10TA2 PO
[2024-12-03 14:19] LABS: HEMATOCRIT 41.6 % (42.0-52.0); HEMOGLOBIN 13.4 g/dl (13.5-17.5); MEAN CORPUSCULAR HEMOGLOBIN 26.7 pg (27.0-33.0); MEAN CORPUSCULAR HGB CONC 32.2 g/dl (32.0-36.5); MEAN CORPUSCULAR VOLUME 82.9 fl (80.0-96.0); PLATELET COUNT, AUTOMATED 512 10^3/uL (150-450); RED BLOOD COUNT 5.02 10^6/uL (4.30-6.10); WHITE BLOOD COUNT 9.3 10^3/uL (4.0-10.0)
[2024-12-03 14:38] LABS: KETONE, URINE AUTO RFX TRACE mg/dL (NEGATIVE); MUCUS, URINE RFX SMALL (NEGATIVE); NITRITE, URINE AUTO RFX NEGATIVE (NEGATIVE); RBC, URINE AUTO RFX 7 /HPF (0-3); SQUAM EPITHELIAL CELL UR AURFX 1 /HPF (0-6)
[2024-12-03 14:40] LABS: LEUKOCYTE ESTERASE UR AUTO RFX 3+ (NEGATIVE); WBC, URINE AUTO RFX 36 /HPF (0-3)
[2024-12-03 14:44] LABS: ALKALINE PHOSPHATASE 73 U/L (40-129); ALT/SGPT 54 U/L (7.0-40); AST/SGOT 16 U/L (<34); BILIRUBIN,DIRECT 0.1 MG/DL (<0.4); BILIRUBIN,TOTAL 0.4 MG/DL (0.3-1.2); BLOOD UREA NITROGEN 8 MG/DL (9-23); CALCIUM LEVEL 10.1 MG/DL (8.5-10.1); CARBON DIOXIDE LEVEL 29 MMOL/L (20-31); CHLORIDE LEVEL 103 MMOL/L (98-107); CREATININE FOR GFR 0.54 MG/DL (0.70-1.30); GLOMERULAR FILTRATION RATE > 90.0 (>60); GLUCOSE, FASTING 90 MG/DL (60-100); POTASSIUM SERUM 3.9 MMOL/L (3.5-5.1); SODIUM LEVEL 141 MMOL/L (136-145); TOTAL PROTEIN 8.1 G/DL (5.7-8.2)
[2024-12-03] MEDS: ONDANSETRON 4MG 2ML VIAL IV ONE (16:57)
[2024-12-03] MEDS: NS (Normal Saline) 0.9% 1,000 ML IV ONE (16:58)
[2024-12-03] MEDS: MORPHINE 4 MG/ML 1ML VIAL IV ONE (16:58)
[2024-12-03] MEDS: PIPERACILLIN/TAZOBACTAM SOD 3.375 GM in DEXTROSE 5% (D5W) ADV/MINI-BAG 50 ML IV ONE (17:25)
[2024-12-03] MEDS ORDERED: HOME MED LIST COMPLETE! XX SCH (19:30)
[2024-12-03] MEDS: MORPHINE 2 MG/ML 1ML VIAL IV ONE (20:03)
[2024-12-03] MEDS ORDERED: MAALOX 30 ML SUSP *UDC PO PRN (20:30)
[2024-12-03] MEDS ORDERED: KETOROLAC 30 MG/ML 1ML VIAL IV PRN (20:30)
[2024-12-03] MEDS ORDERED: ACETAMINOPHEN 325 MG TAB PO PRN (20:30)
[2024-12-03] MEDS: lamoTRIgine 100MG TAB PO SCH (21:00)
[2024-12-03] MEDS: NS (Normal Saline) 0.9% 1,000 ML IV SCH (21:44)
[2024-12-03] MEDS: PHENAZOPYRIDINE 100 MG TAB PO SCH (21:44)
[2024-12-03 22:51] VITALS: BP 133/86; TEMP 98.3; O2SAT 100
[2024-12-03] MEDS: PANTOPRAZOLE 40MG VIAL IV SCH (23:40)
[2024-12-03] MEDS: ONDANSETRON 4MG 2ML VIAL IV PRN (23:43)
[2024-12-04] VITALS (7 sets, daily range): BP systolic 102–128; BP diastolic 60–88; TEMP 97.3–98.1; O2SAT 98
[2024-12-04] MEDS: PIPERACILLIN/TAZOBACTAM SOD 3.375 GM in DEXTROSE 5% (D5W) ADV/MINI-BAG 50 ML IV SCH (00:01)
[2024-12-04] MEDS: oxyCODONE 5MG TAB PO SCH (00:03)
[2024-12-04 06:55] LABS: HEMATOCRIT 36.9 % (42.0-52.0); MEAN CORPUSCULAR HEMOGLOBIN 26.5 pg (27.0-33.0); MEAN CORPUSCULAR HGB CONC 32.5 g/dl (32.0-36.5); MEAN CORPUSCULAR VOLUME 81.6 fl (80.0-96.0); PLATELET COUNT, AUTOMATED 422 10^3/uL (150-450); RED BLOOD COUNT 4.52 10^6/uL (4.30-6.10); WHITE BLOOD COUNT 5.8 10^3/uL (4.0-10.0)
[2024-12-04 07:13] LABS: PROCALCITONIN 0.05 ng/ml
[2024-12-04 07:15] LABS: ALBUMIN 3.2 G/DL (3.2-5.2); ALKALINE PHOSPHATASE 57 U/L (40-129); ALT/SGPT 35 U/L (7.0-40); AST/SGOT 14 U/L (<34); BILIRUBIN,TOTAL 0.6 MG/DL (0.3-1.2); BLOOD UREA NITROGEN 8 MG/DL (9-23); CALCIUM LEVEL 9.2 MG/DL (8.5-10.1); CARBON DIOXIDE LEVEL 27 MMOL/L (20-31); CHLORIDE LEVEL 106 MMOL/L (98-107); CREATININE FOR GFR 0.64 MG/DL (0.70-1.30); GLOMERULAR FILTRATION RATE > 90.0 (>60); GLUCOSE, FASTING 79 MG/DL (60-100); POTASSIUM SERUM 3.7 MMOL/L (3.5-5.1); SODIUM LEVEL 141 MMOL/L (136-145); TOTAL PROTEIN 6.3 G/DL (5.7-8.2)
[2024-12-04 07:59] LABS: C REACTIVE PROTEIN QUANTITATIV 0.97 MG/DL (<1.0)
[2024-12-04] MEDS: lamoTRIgine 100MG TAB PO SCH (08:21)
[2024-12-04] MEDS: ENOXAPARIN 40MG/0.4ML SYRINGE (J1650 PER 10MG) SC SCH (08:26)
[2024-12-04] MEDS: PIPERACILLIN/TAZOBACTAM SOD 4.5 GM in DEXTROSE 5% (D5W) ADV/MINI-BAG 50 ML IV SCH (12:40)
[2024-12-04] MEDS: MORPHINE 2 MG/ML 1ML VIAL IV PRN (15:30)
[2024-12-05] MEDS: ACETAMINOPHEN *IV* 1,000 MG in IV 1 EA IV ONE (03:00)
[2024-12-05 03:02] VITALS: BP 104/60; TEMP 99; O2SAT 98
[2024-12-05 08:00] VITALS: BP 127/83; TEMP 98.2; O2SAT 98
[2024-12-05] MEDS ORDERED: ONDA4INJ4 IV (10:11)
[2024-12-05] MEDS ORDERED: LYRI75CA PO (10:11)
[2024-12-05] MEDS ORDERED: ONDA-284 PO (10:38)
[2024-12-05 12:26] VITALS: BP 117/74; TEMP 97.9; O2SAT 98
[2024-12-05] MEDS ORDERED: LEVO1TAB40 PO (14:31)
[2024-12-05 15:49] VITALS: BP 119/76; TEMP 97.9; O2SAT 98
== END 2024-12-05 19:11 | disposition home or self-care (01) | DRG 698 ==
LOC: M ED 13:13 → M ED INP 20:27 → M MSPAV 22:48
PROVIDERS: ADMIT Student in an Organized Health Care Education/Training Program; ATTEND Internal Medicine
DX: T83.511A Infection and inflammatory reaction due to indwelling urethral catheter, initial encounter (principal); L89.153 Pressure ulcer of sacral region, stage 3; G82.20 Paraplegia, unspecified; N39.0 Urinary tract infection, site not specified; Q05.9 Spina bifida, unspecified; L89.891 Pressure ulcer of other site, stage 1; Y84.6 Urinary catheterization as the cause of abnormal reaction of the patient, or of later complication, without mention of misadventure at the time of the procedure; F31.9 Bipolar disorder, unspecified; F41.9 Anxiety disorder, unspecified; F32.A Depression, unspecified; N31.9 Neuromuscular dysfunction of bladder, unspecified; R19.7 Diarrhea, unspecified; Q65.89 Other specified congenital deformities of hip; G89.29 Other chronic pain; Z88.8 Allergy status to other drugs, medicaments and biological substances; Z91.040 Latex allergy status; Z79.899 Other long term (current) drug therapy

== ENCOUNTER 2025-03-22 20:13 | Inpatient (IN) | payer MEDICARE, MEDICAID ==
[~2025-03-22] VITALS: Ht 154.9 cm; Wt 48.3 kg
[~2025-03-22 20:13] MED LIST changes: -ACE65ERTAB PO; +ACET-1593 PO; +LYRI75CA PO; +METH-1100 PO; -METH-855 PO; +ONDA-284 PO; +ONDA4INJ4 IV; +ZOLP10TA11 PO; -ZOLP10TA2 PO
[2025-03-22] MEDS: lamoTRIgine 100 MG TAB PO SCH (21:00)
[2025-03-22 21:01] LABS: BASO # 0.1 10^3/uL (0.0-0.2); BASO % 0.6 % (0.0-1.0); EOS # 0.1 10^3/uL (0.0-0.5); EOS % 0.8 % (0.0-3.0); LYMPH # 1.4 10^3/uL (1.5-5.0); LYMPH % 14.8 % (24.0-44.0); MONO # 0.6 10^3/uL (0.0-0.8); MONO % 6.0 % (2.0-8.0); NEUTROPHILS # 7.6 10^3/uL (1.5-8.5); NEUTROPHILS % 77.6 % (36.0-66.0); PLATELET COUNT, AUTOMATED 525 10^3/uL (150-450)
[2025-03-22 21:29] LABS: KETONE, URINE AUTO RFX 1+ mg/dL (NEGATIVE); LEUKOCYTE ESTERASE UR AUTO RFX 3+ (NEGATIVE); MUCUS, URINE RFX SMALL (NEGATIVE); NITRITE, URINE AUTO RFX NEGATIVE (NEGATIVE); RBC, URINE AUTO RFX 3 /HPF (0-3); SQUAM EPITHELIAL CELL UR AURFX 2 /HPF (0-6); WBC, URINE AUTO RFX TNTC /HPF (0-3)
[2025-03-22 21:45] LABS: ALT/SGPT 44 U/L (7.0-40); AST/SGOT 19 U/L (<34); CALCIUM LEVEL 10.3 MG/DL (8.5-10.1); CARBON DIOXIDE LEVEL 32 MMOL/L (20-31); CHLORIDE LEVEL 99 MMOL/L (98-107); CREATININE FOR GFR 0.50 MG/DL (0.70-1.30); GLOMERULAR FILTRATION RATE > 90.0 (>60); POTASSIUM SERUM 4.5 MMOL/L (3.5-5.1); SODIUM LEVEL 144 MMOL/L (136-145)
[2025-03-23 00:18] LABS: Trichomonas vaginalis (AMP) NOT DETECTED (NEGATIVE)
[2025-03-23 00:41] LABS: GC DNA AMPLIFICATION NEGATIVE (NEGATIVE)
[2025-03-23] MEDS: MORPHINE 4 MG/ML 1 ML VIAL IV ONE (01:15)
[2025-03-23] MEDS: ONDANSETRON 4MG 2ML VIAL IV PRN (01:16)
[2025-03-23] MEDS ORDERED: MAALOX 30 ML SUSP *UDC PO PRN (02:25)
[2025-03-23] MEDS ORDERED: MOM 30 ML SUSPENSION UDC PO PRN (02:25)
[2025-03-23] MEDS: PIPERACILLIN/TAZOBACTAM SOD 3.375 GM in DEXTROSE 5% (D5W) ADV/MINI-BAG 50 ML IV ONE (02:36)
[2025-03-23] MEDS: MORPHINE 4 MG/ML 1 ML VIAL IV PRN (02:48)
[2025-03-23] MEDS: SODIUM CHLORIDE 0.9% 1000 ML IV SCH (03:00)
[2025-03-23] MEDS ORDERED: ONDA-83 PO (03:26)
[2025-03-23] MEDS ORDERED: HOME MED LIST COMPLETE! XX SCH (03:30)
[2025-03-23 03:48] VITALS: BP 130/78; TEMP 97.7; O2SAT 98
[2025-03-23 06:14] VITALS: O2SAT 95
[2025-03-23 06:40] LABS: PLATELET COUNT, AUTOMATED 495 10^3/uL (150-450)
[2025-03-23 07:18] LABS: ALT/SGPT 37 U/L (7.0-40); AST/SGOT 17 U/L (<34); CALCIUM LEVEL 9.4 MG/DL (8.5-10.1); CARBON DIOXIDE LEVEL 27 MMOL/L (20-31); CHLORIDE LEVEL 104 MMOL/L (98-107); CREATININE FOR GFR 0.54 MG/DL (0.70-1.30); GLOMERULAR FILTRATION RATE > 90.0 (>60); MAGNESIUM LEVEL 1.8 MG/DL (1.8-2.4); POTASSIUM SERUM 4.2 MMOL/L (3.5-5.1); SODIUM LEVEL 143 MMOL/L (136-145)
[2025-03-23] MEDS: HEPARIN SOD 5000 UNITS/ML 1 ML VIAL/SYRINGE SC SCH (07:57)
[2025-03-23] MEDS: PANTOPRAZOLE 40MG VIAL IV SCH (07:57)
[2025-03-23] MEDS: DOCUSATE SODIUM 100 MG CAPSULE PO SCH (07:57)
[2025-03-23] MEDS: PIPERACILLIN/TAZOBACTAM SOD 4.5 GM in DEXTROSE 5% (D5W) ADV/MINI-BAG 50 ML IV SCH (11:00)
[2025-03-23 12:24] VITALS: BP 122/83; TEMP 97.7; O2SAT 99
[2025-03-23 19:26] VITALS: BP 121/81; TEMP 97.6; O2SAT 100
[2025-03-24 03:51] VITALS: BP 117/79; TEMP 97.5; O2SAT 100
[2025-03-24 06:42] LABS: PLATELET COUNT, AUTOMATED 466 10^3/uL (150-450)
[2025-03-24 07:17] LABS: ALT/SGPT 32 U/L (7.0-40); AST/SGOT 13 U/L (<34); CALCIUM LEVEL 9.0 MG/DL (8.5-10.1); CARBON DIOXIDE LEVEL 30 MMOL/L (20-31); CHLORIDE LEVEL 101 MMOL/L (98-107); CREATININE FOR GFR 0.66 MG/DL (0.70-1.30); GLOMERULAR FILTRATION RATE > 90.0 (>60); POTASSIUM SERUM 4.2 MMOL/L (3.5-5.1); SODIUM LEVEL 141 MMOL/L (136-145)
[2025-03-24 12:00] VITALS: BP 134/65; TEMP 97.9; O2SAT 95
[2025-03-24] MEDS: PANTOPRAZOLE 40MG TAB PO SCH (20:10)
[2025-03-24 20:31] VITALS: BP 138/77; TEMP 97.7; O2SAT 98
[2025-03-25 03:49] VITALS: BP 107/70; TEMP 97.5; O2SAT 98
[2025-03-25 06:55] LABS: PLATELET COUNT, AUTOMATED 477 10^3/uL (150-450)
[2025-03-25 07:18] LABS: ALT/SGPT 29 U/L (7.0-40); AST/SGOT 11 U/L (<34); CALCIUM LEVEL 9.4 MG/DL (8.5-10.1); CARBON DIOXIDE LEVEL 33 MMOL/L (20-31); CHLORIDE LEVEL 99 MMOL/L (98-107); CREATININE FOR GFR 0.71 MG/DL (0.70-1.30); GLOMERULAR FILTRATION RATE > 90.0 (>60); POTASSIUM SERUM 4.7 MMOL/L (3.5-5.1); SODIUM LEVEL 141 MMOL/L (136-145)
[2025-03-25 12:00] VITALS: BP 115/72; TEMP 97.7; O2SAT 95
[2025-03-25 19:36] VITALS: BP 117/69; TEMP 97.7; O2SAT 97
[2025-03-26 03:44] VITALS: BP 116/68; TEMP 97.3; O2SAT 98
[2025-03-26 06:30] LABS: PLATELET COUNT, AUTOMATED 469 10^3/uL (150-450)
[2025-03-26 07:02] LABS: ALT/SGPT 23 U/L (7.0-40); AST/SGOT 11 U/L (<34); CALCIUM LEVEL 9.6 MG/DL (8.5-10.1); CARBON DIOXIDE LEVEL 31 MMOL/L (20-31); CHLORIDE LEVEL 98 MMOL/L (98-107); CREATININE FOR GFR 1.05 MG/DL (0.70-1.30); GLOMERULAR FILTRATION RATE > 90.0 (>60); POTASSIUM SERUM 4.8 MMOL/L (3.5-5.1); SODIUM LEVEL 139 MMOL/L (136-145)
[2025-03-26] MEDS: PIPERACILLIN/TAZOBACTAM SOD 4.5 GM in DEXTROSE 5% (D5W) ADV/MINI-BAG 50 ML IV SCH (11:11)
[2025-03-26 12:00] VITALS: BP 120/72; TEMP 97.9; O2SAT 96
[2025-03-26 16:31] LABS: C REACTIVE PROTEIN QUANTITATIV 1.45 MG/DL (<1.0)
[2025-03-26] MEDS: MEROPENEM 1 GM in IV 1 EA IV SCH (18:02)
[2025-03-26 20:37] VITALS: BP 124/82; TEMP 97.9; O2SAT 98
[2025-03-27 03:36] VITALS: BP 112/73; TEMP 97.3; O2SAT 99
[2025-03-27 12:00] VITALS: BP 113/76; TEMP 97.5; O2SAT 96
[2025-03-27 19:47] VITALS: BP 134/84; TEMP 97.5; O2SAT 97
[2025-03-28 03:48] VITALS: BP 120/82; TEMP 97.5; O2SAT 98
[2025-03-28 08:11] LABS: BASO # 0.1 10^3/uL (0.0-0.2); BASO % 0.9 % (0.0-1.0); EOS # 0.8 10^3/uL (0.0-0.5); EOS % 10.7 % (0.0-3.0); LYMPH # 2.0 10^3/uL (1.5-5.0); LYMPH % 24.7 % (24.0-44.0); MONO # 0.4 10^3/uL (0.0-0.8); MONO % 5.3 % (2.0-8.0); NEUTROPHILS # 4.6 10^3/uL (1.5-8.5); NEUTROPHILS % 58.0 % (36.0-66.0); PLATELET COUNT, AUTOMATED 441 10^3/uL (150-450)
[2025-03-28 08:38] LABS: C REACTIVE PROTEIN QUANTITATIV 1.16 MG/DL (<1.0); CALCIUM LEVEL 9.8 MG/DL (8.5-10.1); CARBON DIOXIDE LEVEL 31 MMOL/L (20-31); CHLORIDE LEVEL 100 MMOL/L (98-107); CREATININE FOR GFR 0.60 MG/DL (0.70-1.30); GLOMERULAR FILTRATION RATE > 90.0 (>60); POTASSIUM SERUM 4.7 MMOL/L (3.5-5.1); SODIUM LEVEL 140 MMOL/L (136-145)
[2025-03-28 12:00] VITALS: BP 128/77; TEMP 97.3; O2SAT 96
[2025-03-28 19:34] LABS: APPEARANCE, URINE CLEAR (CLEAR); BACTERIA, URINE AUTO NEGATIVE (NEGATIVE); BILIRUBIN, URINE AUTO NEGATIVE (NEGATIVE); BLOOD, URINE BLOOD NEGATIVE (NEGATIVE); GLUCOSE, URINE (UA) AUTO NEGATIVE (NEGATIVE); KETONE, URINE AUTO NEGATIVE (NEGATIVE); LEUKOCYTE ESTERASE, URINE AUTO NEGATIVE (NEGATIVE); NITRITE, URINE AUTO NEGATIVE (NEGATIVE); PROTEIN, URINE AUTO NEGATIVE (NEGATIVE); RBC, URINE AUTO 1 /HPF (0-3); SPECIFIC GRAVITY URINE AUTO 1.012 (1.002-1.035); SQUAMOUS EPITHELIAL CELL UR AU 1 /HPF (0-6); UROBILINOGEN, URINE AUTO 0.2 mg/dL (0.0-2.0); WBC, URINE AUTO 0 /HPF (0-3)
[2025-03-28 19:47] VITALS: BP 143/87; TEMP 97.7; O2SAT 97
[2025-03-29 04:35] VITALS: BP 111/74; TEMP 97.9; O2SAT 97
[2025-03-29 12:00] VITALS: BP 127/82; TEMP 97.9; O2SAT 98
[2025-03-29] MEDS: ACETAMINOPHEN 325 MG TAB PO PRN (20:16)
[2025-03-29 21:25] VITALS: BP 126/81; TEMP 97.9; O2SAT 97
[2025-03-30 04:19] VITALS: BP 125/80; TEMP 97.3; O2SAT 100
[2025-03-30 08:36] LABS: PLATELET COUNT, AUTOMATED 402 10^3/uL (150-450)
[2025-03-30 09:00] LABS: CALCIUM LEVEL 9.5 MG/DL (8.5-10.1); CARBON DIOXIDE LEVEL 31 MMOL/L (20-31); CHLORIDE LEVEL 100 MMOL/L (98-107); CREATININE FOR GFR 0.70 MG/DL (0.70-1.30); GLOMERULAR FILTRATION RATE > 90.0 (>60); POTASSIUM SERUM 4.2 MMOL/L (3.5-5.1); SODIUM LEVEL 133 MMOL/L (136-145)
[2025-03-30 20:15] VITALS: BP 145/87; TEMP 97.5; O2SAT 98
[2025-03-31 03:01] VITALS: BP 112/71; TEMP 97.7; O2SAT 99
[2025-03-31] MEDS: MEROPENEM 1 GM in IV 1 EA IV SCH (09:12)
== END 2025-03-31 15:54 | disposition home or self-care (01) | DRG 698 ==
LOC: M ED 20:13 → M ED INP 03-23 02:22 → M MSPAV 03-23 03:42
PROVIDERS: ADMIT Student in an Organized Health Care Education/Training Program; ATTEND Internal Medicine
DX: T83.511A Infection and inflammatory reaction due to indwelling urethral catheter, initial encounter (principal); L89.153 Pressure ulcer of sacral region, stage 3; G82.20 Paraplegia, unspecified; Q05.4 Unspecified spina bifida with hydrocephalus; N39.0 Urinary tract infection, site not specified; D64.9 Anemia, unspecified; B96.5 Pseudomonas (aeruginosa) (mallei) (pseudomallei) as the cause of diseases classified elsewhere; N31.9 Neuromuscular dysfunction of bladder, unspecified; G43.909 Migraine, unspecified, not intractable, without status migrainosus; K59.00 Constipation, unspecified; Z99.3 Dependence on wheelchair; Z86.16 Personal history of COVID-19; Z87.891 Personal history of nicotine dependence; Z88.8 Allergy status to other drugs, medicaments and biological substances; Z91.040 Latex allergy status; Z79.899 Other long term (current) drug therapy; Y84.6 Urinary catheterization as the cause of abnormal reaction of the patient, or of later complication, without mention of misadventure at the time of the procedure

== ENCOUNTER 2025-04-26 15:40 | Inpatient (IN) | payer MEDICARE, MEDICAID ==
[~2025-04-26] VITALS: Ht 154.9 cm; Wt 48.0 kg
[~2025-04-26 15:40] MED LIST changes: +ONDA-83 PO
[2025-04-26 16:30] LABS: BASO # 0.1 10^3/uL (0.0-0.2); BASO % 0.6 % (0.0-1.0); EOS # 0.0 10^3/uL (0.0-0.5); EOS % 0.3 % (0.0-3.0); LYMPH # 1.1 10^3/uL (1.5-5.0); LYMPH % 9.5 % (24.0-44.0); MONO # 0.4 10^3/uL (0.0-0.8); MONO % 3.4 % (2.0-8.0); NEUTROPHILS # 9.5 10^3/uL (1.5-8.5); NEUTROPHILS % 86.0 % (36.0-66.0); PLATELET COUNT, AUTOMATED 538 10^3/uL (150-450)
[2025-04-26 16:34] LABS: KETONE, URINE AUTO RFX TRACE mg/dL (NEGATIVE); MUCUS, URINE RFX SMALL (NEGATIVE); NITRITE, URINE AUTO RFX NEGATIVE (NEGATIVE); RBC, URINE AUTO RFX 5 /HPF (0-3); SQUAM EPITHELIAL CELL UR AURFX 1 /HPF (0-6)
[2025-04-26 16:35] LABS: LEUKOCYTE ESTERASE UR AUTO RFX 3+ (NEGATIVE); WBC, URINE AUTO RFX TNTC /HPF (0-3)
[2025-04-26] MEDS: MORPHINE 4 MG/ML 1 ML VIAL IV ONE ×2 (16:37→17:25)
[2025-04-26] MEDS: ONDANSETRON 4MG 2ML VIAL IV ONE (16:37)
[2025-04-26 17:01] LABS: ALT/SGPT 67.0 U/L (7.0-40); AST/SGOT 18.0 U/L (<34)
[2025-04-26] MEDS ORDERED: ISOVUE-370 76% 100 ML VIAL As Ordered ONE (17:02)
[2025-04-26] MEDS: HYDROMORPHONE HCL 0.5 MG/0.5 ML SYRINGE IV PRN (19:05)
[2025-04-26] MEDS ORDERED: ACET-897 PO (19:14)
[2025-04-26] MEDS: MEROPENEM 1 GM in IV 1 EA IV ONE (19:29)
[2025-04-26] MEDS ORDERED: ACETAMINOPHEN 325 MG TAB PO PRN (19:50)
[2025-04-26] MEDS ORDERED: diphenhydrAMINE 50 MG/ML VIAL IV PRN (19:50)
[2025-04-26] MEDS ORDERED: HOME MED LIST COMPLETE! XX SCH (19:55)
[2025-04-26] MEDS: PANTOPRAZOLE 40MG TAB PO SCH (20:42)
[2025-04-26 22:45] VITALS: BP 133/80; TEMP 97.9; O2SAT 98
[2025-04-26] MEDS: MORPHINE 4 MG/ML 1 ML VIAL IV PRN (22:54)
[2025-04-27] MEDS ORDERED: PILL CUTTER 1 EACH XX PRN (00:55)
[2025-04-27] MEDS: HYDROmorphone 2 MG TAB PO PRN (01:18)
[2025-04-27] MEDS: ONDANSETRON 4MG 2ML VIAL IV PRN (03:29)
[2025-04-27] MEDS: MEROPENEM 1 GM in IV 1 EA IV SCH (03:30)
[2025-04-27] MEDS ORDERED: SENNA 8.6 MG TAB PO PRN (05:00)
[2025-04-27 06:00] VITALS: BP 130/88; TEMP 97.7; O2SAT 98
[2025-04-27] MEDS: HEPARIN SOD 5000 UNITS/ML 1 ML VIAL/SYRINGE SC SCH (06:00)
[2025-04-27 08:18] LABS: PLATELET COUNT, AUTOMATED 442 10^3/uL (150-450)
[2025-04-27 08:42] LABS: ALT/SGPT 48 U/L (7.0-40); AST/SGOT 13 U/L (<34); CALCIUM LEVEL 8.7 MG/DL (8.5-10.1); CARBON DIOXIDE LEVEL 27 MMOL/L (20-31); CHLORIDE LEVEL 104 MMOL/L (98-107); CREATININE FOR GFR 0.53 MG/DL (0.70-1.30); GLOMERULAR FILTRATION RATE > 90.0 (>60); MAGNESIUM LEVEL 1.7 MG/DL (1.8-2.4); POTASSIUM SERUM 3.5 MMOL/L (3.5-5.1); SODIUM LEVEL 143 MMOL/L (136-145)
[2025-04-27 10:00] VITALS: BP 111/69; TEMP 97.7; O2SAT 100
[2025-04-27 12:00] VITALS: BP 128/80; TEMP 97.6; O2SAT 98
[2025-04-27 16:00] VITALS: BP 110/78; TEMP 97.7; O2SAT 97
[2025-04-27 21:25] VITALS: BP 121/86; TEMP 97.9; O2SAT 99
[2025-04-28 03:52] VITALS: BP 127/75; TEMP 97.7; O2SAT 99
[2025-04-28 08:00] VITALS: BP 116/78; TEMP 97.5; O2SAT 98
[2025-04-28 12:00] VITALS: BP 124/76; TEMP 97.6; O2SAT 99
[2025-04-28 16:00] VITALS: BP 123/78; TEMP 97.5; O2SAT 98
[2025-04-28 20:59] VITALS: BP 122/73; TEMP 98.7; O2SAT 98
[2025-04-29 02:00] VITALS: BP 114/71; TEMP 97.8; O2SAT 99
[2025-04-29 06:00] VITALS: BP 120/74; TEMP 97.7; O2SAT 97
[2025-04-29 08:18] LABS: PLATELET COUNT, AUTOMATED 471 10^3/uL (150-450)
[2025-04-29 08:46] LABS: ALT/SGPT 29 U/L (7.0-40); AST/SGOT 11 U/L (<34); CALCIUM LEVEL 9.1 MG/DL (8.5-10.1); CARBON DIOXIDE LEVEL 32 MMOL/L (20-31); CHLORIDE LEVEL 100 MMOL/L (98-107); CREATININE FOR GFR 0.58 MG/DL (0.70-1.30); GLOMERULAR FILTRATION RATE > 90.0 (>60); POTASSIUM SERUM 4.6 MMOL/L (3.5-5.1); SODIUM LEVEL 141 MMOL/L (136-145)
[2025-04-29 10:00] VITALS: BP 124/69; TEMP 97.6; O2SAT 98
[2025-04-29] MEDS: cefTRIAXone SOD 1 GM in DEXTROSE 5% (D5W) ADV/MINI-BAG 50 ML IV SCH (12:18)
[2025-04-29 14:00] VITALS: BP 116/70; TEMP 97.8; O2SAT 97
[2025-04-29 16:00] VITALS: BP 128/82; TEMP 97.8; O2SAT 97
[2025-04-29 20:47] VITALS: BP 110/66; TEMP 97.7; O2SAT 98
[2025-04-30 05:30] VITALS: BP 114/69; TEMP 97.7; O2SAT 97
[2025-04-30 08:27] LABS: PLATELET COUNT, AUTOMATED 447 10^3/uL (150-450)
[2025-04-30 08:55] LABS: CALCIUM LEVEL 9.1 MG/DL (8.5-10.1); CARBON DIOXIDE LEVEL 35 MMOL/L (20-31); CHLORIDE LEVEL 96 MMOL/L (98-107); CREATININE FOR GFR 0.56 MG/DL (0.70-1.30); GLOMERULAR FILTRATION RATE > 90.0 (>60); MAGNESIUM LEVEL 2.0 MG/DL (1.8-2.4); POTASSIUM SERUM 5.3 MMOL/L (3.5-5.1); SODIUM LEVEL 137 MMOL/L (136-145)
[2025-04-30 09:40] VITALS: BP 130/92; TEMP 97.9; O2SAT 95
[2025-04-30] MEDS: MEROPENEM 1 GM in IV 1 EA IV SCH (12:35)
[2025-04-30 14:00] VITALS: BP 123/82
[2025-04-30 22:29] VITALS: BP 152/86; TEMP 97.9; O2SAT 98
[2025-05-01 06:23] LABS: PLATELET COUNT, AUTOMATED 461 10^3/uL (150-450)
[2025-05-01 06:37] VITALS: BP 140/88; TEMP 97.5; O2SAT 98
[2025-05-01 06:45] LABS: CALCIUM LEVEL 9.1 MG/DL (8.5-10.1); CARBON DIOXIDE LEVEL 34 MMOL/L (20-31); CHLORIDE LEVEL 97 MMOL/L (98-107); CREATININE FOR GFR 0.58 MG/DL (0.70-1.30); GLOMERULAR FILTRATION RATE > 90.0 (>60); MAGNESIUM LEVEL 1.9 MG/DL (1.8-2.4); POTASSIUM SERUM 4.9 MMOL/L (3.5-5.1); SODIUM LEVEL 140 MMOL/L (136-145)
[2025-05-01 10:00] VITALS: BP 130/78; TEMP 97.6; O2SAT 97
[2025-05-01 14:00] VITALS: BP 132/75; TEMP 97.7; O2SAT 98
[2025-05-01 19:51] VITALS: BP 119/77; TEMP 97.7; O2SAT 91
[2025-05-01 23:41] VITALS: BP 135/82; TEMP 98.1; O2SAT 100
[2025-05-02 06:44] LABS: PLATELET COUNT, AUTOMATED 436 10^3/uL (150-450)
[2025-05-02 07:13] LABS: CALCIUM LEVEL 9.3 MG/DL (8.5-10.1); CARBON DIOXIDE LEVEL 32 MMOL/L (20-31); CHLORIDE LEVEL 98 MMOL/L (98-107); CREATININE FOR GFR 0.48 MG/DL (0.70-1.30); GLOMERULAR FILTRATION RATE > 90.0 (>60); MAGNESIUM LEVEL 2.0 MG/DL (1.8-2.4); POTASSIUM SERUM 4.5 MMOL/L (3.5-5.1); SODIUM LEVEL 139 MMOL/L (136-145)
[2025-05-02 09:22] VITALS: BP 129/77; TEMP 97.9
[2025-05-02 14:00] VITALS: BP 138/92; TEMP 98.1
[2025-05-02 20:56] VITALS: BP 147/79; TEMP 98.2
[2025-05-03 04:08] VITALS: BP 143/80; TEMP 98.1
[2025-05-03 06:57] LABS: PLATELET COUNT, AUTOMATED 445 10^3/uL (150-450)
[2025-05-03 07:26] LABS: CALCIUM LEVEL 9.8 MG/DL (8.5-10.1); CARBON DIOXIDE LEVEL 30 MMOL/L (20-31); CHLORIDE LEVEL 100 MMOL/L (98-107); CREATININE FOR GFR 0.48 MG/DL (0.70-1.30); GLOMERULAR FILTRATION RATE > 90.0 (>60); MAGNESIUM LEVEL 2.0 MG/DL (1.8-2.4); POTASSIUM SERUM 5.1 MMOL/L (3.5-5.1); SODIUM LEVEL 141 MMOL/L (136-145)
[2025-05-03] MEDS ORDERED: AZO1CAP PO (11:48)
== END 2025-05-03 13:47 | disposition home or self-care (01) | DRG 698 ==
LOC: M ED 15:40 → M ED INP 19:50 → M MS5PR 22:38
PROVIDERS: ADMIT Student in an Organized Health Care Education/Training Program; ATTEND Student in an Organized Health Care Education/Training Program
DX: T83.518A Infection and inflammatory reaction due to other urinary catheter, initial encounter (principal); L89.153 Pressure ulcer of sacral region, stage 3; G82.20 Paraplegia, unspecified; K59.09 Other constipation; D64.9 Anemia, unspecified; R19.7 Diarrhea, unspecified; N31.9 Neuromuscular dysfunction of bladder, unspecified; Q05.9 Spina bifida, unspecified; Z99.3 Dependence on wheelchair; Z87.442 Personal history of urinary calculi; Z79.899 Other long term (current) drug therapy; Z88.8 Allergy status to other drugs, medicaments and biological substances; Z91.040 Latex allergy status; Y84.6 Urinary catheterization as the cause of abnormal reaction of the patient, or of later complication, without mention of misadventure at the time of the procedure

== ENCOUNTER 2025-06-07 15:20 | Inpatient (IN) | payer MEDICARE, MEDICAID ==
[~2025-06-07] VITALS: Ht 154.9 cm; Wt 49.4 kg
[~2025-06-07 15:20] MED LIST changes: +ACET-1387 PO; -ACET-1593 PO; +ACET-897 PO; +AZO1CAP PO
[2025-06-07 16:31] LABS: BASO # 0.1 10^3/uL (0.0-0.2); BASO % 0.6 % (0.0-1.0); EOS # 0.2 10^3/uL (0.0-0.5); EOS % 1.2 % (0.0-3.0); LYMPH # 1.2 10^3/uL (1.5-5.0); LYMPH % 9.7 % (24.0-44.0); MONO # 0.5 10^3/uL (0.0-0.8); MONO % 4.0 % (2.0-8.0); NEUTROPHILS # 10.5 10^3/uL (1.5-8.5); NEUTROPHILS % 84.2 % (36.0-66.0); PLATELET COUNT, AUTOMATED 502 10^3/uL (150-450)
[2025-06-07 16:50] LABS: CALCIUM LEVEL 9.9 MG/DL (8.5-10.1); CARBON DIOXIDE LEVEL 30 MMOL/L (20-31); CHLORIDE LEVEL 102 MMOL/L (98-107); CREATININE FOR GFR 0.50 MG/DL (0.70-1.30); GLOMERULAR FILTRATION RATE > 90.0 (>60); POTASSIUM SERUM 4.3 MMOL/L (3.5-5.1); SODIUM LEVEL 141 MMOL/L (136-145)
[2025-06-07 16:52] LABS: KETONE, URINE AUTO RFX NEGATIVE (NEGATIVE); MUCUS, URINE RFX SMALL (NEGATIVE); NITRITE, URINE AUTO RFX NEGATIVE (NEGATIVE); RBC, URINE AUTO RFX 4 /HPF (0-3); SQUAM EPITHELIAL CELL UR AURFX 1 /HPF (0-6)
[2025-06-07 17:02] LABS: LEUKOCYTE ESTERASE UR AUTO RFX 3+ (NEGATIVE); WBC, URINE AUTO RFX 65 /HPF (0-3)
[2025-06-07] MEDS: ONDANSETRON 4MG/2ML VIAL IV ONE (19:34)
[2025-06-07] MEDS: MORPHINE 4 MG/ML 1 ML VIAL IV ONE ×2 (19:35→21:33)
[2025-06-07] MEDS: NS (Normal Saline) 0.9% 1,000 ML IV ONE (19:35)
[2025-06-07] MEDS: ACETAMINOPHEN *IV* 1,000 MG in IV 1 EA IV ONE (20:45)
[2025-06-07] MEDS ORDERED: HOME MED LIST COMPLETE! XX SCH (22:30)
[2025-06-07] MEDS ORDERED: oxyCODONE 15MG CR TAB PO PRN (22:35)
[2025-06-07] MEDS: BISACODYL 10 MG SUPP PR ONE (22:35)
[2025-06-07] MEDS ORDERED: ACETAMINOPHEN 500 MG TAB PO PRN (22:45)
[2025-06-07] MEDS: MEROPENEM 1 GM in IV 1 EA IV SCH (23:06)
[2025-06-08 07:39] LABS: CALCIUM LEVEL 9.2 MG/DL (8.5-10.1); CARBON DIOXIDE LEVEL 24 MMOL/L (20-31); CHLORIDE LEVEL 105 MMOL/L (98-107); CREATININE FOR GFR 0.46 MG/DL (0.70-1.30); GLOMERULAR FILTRATION RATE > 90.0 (>60); MAGNESIUM LEVEL 1.6 MG/DL (1.8-2.4); POTASSIUM SERUM 4.4 MMOL/L (3.5-5.1); SODIUM LEVEL 141 MMOL/L (136-145)
[2025-06-08 08:06] LABS: PLATELET COUNT, AUTOMATED 186 10^3/uL (150-450)
[2025-06-08 08:30] VITALS: BP 142/103; TEMP 97.6; O2SAT 99
[2025-06-08] MEDS: SENNA 8.6 MG TAB PO SCH (08:37)
[2025-06-08] MEDS: MAG SULF 1GM/100ML (MAG RUN) 1 GM in IV 1 EA IV SCH (08:37)
[2025-06-08] MEDS: DOCUSATE SODIUM 100 MG CAPSULE PO SCH (08:37)
[2025-06-08] MEDS: ENOXAPARIN 40 MG/0.4 ML SYRINGE (J1650 PER 10MG) SC SCH (08:37)
[2025-06-08] MEDS: lamoTRIgine 100 MG TAB PO SCH (08:38)
[2025-06-08] MEDS: MIRALAX *UNIT DOSE* 17 GM PACKET PO PRN (09:49)
[2025-06-08] MEDS: MOM 30 ML SUSPENSION UDC PO PRN (09:49)
[2025-06-08 13:52] VITALS: BP 143/88; O2SAT 100
[2025-06-08 15:15] VITALS: BP 107/65; TEMP 98.7; O2SAT 100
[2025-06-08 19:47] VITALS: BP 122/71; TEMP 99; O2SAT 99
[2025-06-08 22:29] LABS: BASO # 0.1 10^3/uL (0.0-0.2); BASO % 1.5 % (0.0-1.0); EOS # 0.6 10^3/uL (0.0-0.5); EOS % 8.9 % (0.0-3.0); LYMPH # 1.8 10^3/uL (1.5-5.0); LYMPH % 25.9 % (24.0-44.0); MONO # 0.5 10^3/uL (0.0-0.8); MONO % 7.0 % (2.0-8.0); NEUTROPHILS # 3.9 10^3/uL (1.5-8.5); NEUTROPHILS % 56.6 % (36.0-66.0)
[2025-06-08 22:47] LABS: PLATELET COUNT, AUTOMATED 471 10^3/uL (150-450)
[2025-06-08 22:58] LABS: CALCIUM LEVEL 9.0 MG/DL (8.5-10.1); CARBON DIOXIDE LEVEL 32 MMOL/L (20-31); CHLORIDE LEVEL 99 MMOL/L (98-107); CREATININE FOR GFR 0.50 MG/DL (0.70-1.30); GLOMERULAR FILTRATION RATE > 90.0 (>60); POTASSIUM SERUM 5.1 MMOL/L (3.5-5.1); SODIUM LEVEL 138 MMOL/L (136-145)
[2025-06-09 05:29] VITALS: BP 126/75; TEMP 98.4; O2SAT 99
[2025-06-09 07:29] LABS: MAGNESIUM LEVEL 2.2 MG/DL (1.8-2.4)
[2025-06-09 07:30] LABS: LDH LACTATE DEHYDROGENASE 108 U/L (120-246)
[2025-06-09 07:31] LABS: IRON (FE) 46 UG/DL (65-175); PERCENT SATURATION 14.7 % (19.7-50.0)
[2025-06-09 07:34] LABS: VITAMIN B12 LEVEL 603 PG/ML (211-911)
[2025-06-09] MEDS: DICLOFENAC EPOLAMINE 1.3% PATCH TOP SCH (08:50)
[2025-06-09 12:43] LABS: CALCIUM LEVEL 9.3 MG/DL (8.5-10.1); CARBON DIOXIDE LEVEL 27 MMOL/L (20-31); CHLORIDE LEVEL 100 MMOL/L (98-107); CREATININE FOR GFR 0.56 MG/DL (0.70-1.30); GLOMERULAR FILTRATION RATE > 90.0 (>60); POTASSIUM SERUM 4.8 MMOL/L (3.5-5.1); SODIUM LEVEL 136 MMOL/L (136-145)
[2025-06-09 12:49] LABS: PLATELET COUNT, AUTOMATED 487 10^3/uL (150-450)
[2025-06-09] MEDS: MIRALAX *UNIT DOSE* 17 GM PACKET PO ONE (12:51)
[2025-06-09 14:00] VITALS: BP 118/66; TEMP 98.5; O2SAT 100
[2025-06-09] MEDS: LevoFLOXacin IV 500 MG in IV 1 EA IV SCH (15:10)
[2025-06-09] MEDS: ONDANSETRON 4MG TAB PO PRN (15:12)
[2025-06-09] MEDS: MORPHINE 2 MG/ML 1 ML VIAL IV ONE (19:47)
[2025-06-09 20:54] VITALS: BP 121/70; TEMP 99.4; O2SAT 98
[2025-06-10 06:52] LABS: CALCIUM LEVEL 9.3 MG/DL (8.5-10.1); CARBON DIOXIDE LEVEL 26 MMOL/L (20-31); CHLORIDE LEVEL 101 MMOL/L (98-107); CREATININE FOR GFR 0.60 MG/DL (0.70-1.30); GLOMERULAR FILTRATION RATE > 90.0 (>60); POTASSIUM SERUM 5.6 MMOL/L (3.5-5.1); SODIUM LEVEL 138 MMOL/L (136-145)
[2025-06-10 07:18] VITALS: BP 129/57; TEMP 98.7; O2SAT 99
[2025-06-10 07:42] LABS: BASO # 0.1 10^3/uL (0.0-0.2); BASO % 1.3 % (0.0-1.0); EOS # 0.6 10^3/uL (0.0-0.5); EOS % 11.6 % (0.0-3.0); LYMPH # 1.7 10^3/uL (1.5-5.0); LYMPH % 31.5 % (24.0-44.0); MONO # 0.4 10^3/uL (0.0-0.8); MONO % 6.9 % (2.0-8.0); NEUTROPHILS # 2.7 10^3/uL (1.5-8.5); NEUTROPHILS % 48.5 % (36.0-66.0); PLATELET COUNT, AUTOMATED 497 10^3/uL (150-450)
[2025-06-10] MEDS: PATIROMER SORBITEX CALCIUM 8.4GM POWDER PACKET PO ONE (09:15)
[2025-06-10] MEDS: NS 500 ML IV ONE (09:40)
[2025-06-10] MEDS ORDERED: LEVO1TAB39 PO (13:53)
[2025-06-10 14:00] VITALS: BP 109/52; TEMP 98.3; O2SAT 99
[2025-06-10] MEDS: HYDROmorphone 2 MG TAB PO ONE (16:01)
[2025-06-10] MEDS: MORPHINE 4 MG/ML 1 ML VIAL IV ONE (16:30)
== END 2025-06-10 17:00 | disposition home or self-care (01) | DRG 689 ==
LOC: M ED 15:20 → M ED INP 22:32 → M MS5PR 06-08 15:15
PROVIDERS: ADMIT Internal Medicine; ATTEND Student in an Organized Health Care Education/Training Program
DX: N39.0 Urinary tract infection, site not specified (principal); E43 Unspecified severe protein-calorie malnutrition; L89.153 Pressure ulcer of sacral region, stage 3; G82.20 Paraplegia, unspecified; G91.9 Hydrocephalus, unspecified; T83.518A Infection and inflammatory reaction due to other urinary catheter, initial encounter; N31.9 Neuromuscular dysfunction of bladder, unspecified; K80.20 Calculus of gallbladder without cholecystitis without obstruction; N20.0 Calculus of kidney; K59.00 Constipation, unspecified; Z99.3 Dependence on wheelchair; R51.9 Headache, unspecified; Z87.891 Personal history of nicotine dependence; Z88.8 Allergy status to other drugs, medicaments and biological substances; Z79.899 Other long term (current) drug therapy; Y84.6 Urinary catheterization as the cause of abnormal reaction of the patient, or of later complication, without mention of misadventure at the time of the procedure